=== PATIENT | female | born 1975 | race Caucasian/White ===

== ENCOUNTER → 2016-12-10 | Outpatient (CLI) | payer OTHER ==
[~2016-12-10] MED LIST: ALBU17IN INH; FLUT22IN INH; GABA600T PO; LAMO200T PO; LYRI200C PO; NEUR300C PO; PROZ20CA11 PO; SERO50TA PO
[2016-12-10 11:50] LABS: MEAN CORPUSCULAR HEMOGLOBIN 30.4 pg (27.0-33.0); MEAN CORPUSCULAR HGB CONC 33.8 g/dl (32.0-36.5); MEAN CORPUSCULAR VOLUME 89.9 fl (80.0-96.0)
[2016-12-10 12:09] LABS: CONTROL LINE HPYORI INT CTR LINE PRESENT
[2016-12-10 12:13] LABS: ALBUMIN 3.9 GM/DL (3.2-5.2); ALBUMIN/GLOBULIN RATIO 0.98 (1.00-1.93); ALKALINE PHOSPHATASE 76 U/L (45-117); ALT/SGPT 108 U/L (12-78); ANION GAP 8 MEQ/L (8-16); AST/SGOT 65 U/L (15-37); BILIRUBIN,TOTAL 0.4 MG/DL (0.2-1.0); BLOOD UREA NITROGEN 8 MG/DL (7-18); CALCIUM LEVEL 8.8 MG/DL (8.5-10.1); CARBON DIOXIDE LEVEL 24 MEQ/L (21-32); CHLORIDE LEVEL 107 MEQ/L (98-107); CREATININE FOR GFR 0.64 MG/DL (0.55-1.02); FREE T4 1.42 NG/DL (0.76-1.46); GLOMERULAR FILTRATION RATE > 60.0 (>60); GLUCOSE, FASTING 91 MG/DL (70-105); POTASSIUM SERUM 4.3 MEQ/L (3.5-5.1); SODIUM LEVEL 139 MEQ/L (136-145); TOTAL PROTEIN 7.9 GM/DL (6.4-8.2)
== END ==
LOC: M LAB 11:00
PROVIDERS: ATTEND Nurse Practitioner Family
DX: R63.4 Abnormal weight loss (principal); R42 Dizziness and giddiness; K21.9 Gastro-esophageal reflux disease without esophagitis; R11.0 Nausea

== ENCOUNTER 2016-12-15 16:03 | Inpatient (IN) | payer OTHER ==
[~2016-12-15] VITALS: Ht 175.3 cm; Wt 66.2 kg
[2016-12-15 17:05] LABS: MEAN CORPUSCULAR HEMOGLOBIN 30.5 pg (27.0-33.0); MEAN CORPUSCULAR HGB CONC 33.7 g/dl (32.0-36.5); MEAN CORPUSCULAR VOLUME 90.4 fl (80.0-96.0); WHITE BLOOD COUNT 10.8 K/mm3 (4.0-10.0)
[2016-12-15 17:34] LABS: ALBUMIN 3.7 GM/DL (3.2-5.2); ALBUMIN/GLOBULIN RATIO 1.06 (1.00-1.93); ALKALINE PHOSPHATASE 84 U/L (45-117); ALT/SGPT 89 U/L (12-78); AMYLASE 63 U/L (25-115); ANION GAP 9 MEQ/L (8-16); AST/SGOT 64 U/L (15-37); BILIRUBIN,DIRECT < 0.1 MG/DL (0.0-0.2); BILIRUBIN,TOTAL 0.3 MG/DL (0.2-1.0); BLOOD UREA NITROGEN 8 MG/DL (7-18); CALCIUM LEVEL 8.6 MG/DL (8.5-10.1); CARBON DIOXIDE LEVEL 23 MEQ/L (21-32); CHLORIDE LEVEL 106 MEQ/L (98-107); CREATININE FOR GFR 0.79 MG/DL (0.55-1.02); GLOMERULAR FILTRATION RATE > 60.0 (>60); GLUCOSE, FASTING 106 MG/DL (70-105); SODIUM LEVEL 138 MEQ/L (136-145); TOTAL PROTEIN 7.2 GM/DL (6.4-8.2)
[2016-12-15 17:35] LABS: POTASSIUM SERUM 4.1 MEQ/L (3.5-5.1)
[2016-12-15 18:33] LABS: AMPHETAMINES LEVEL URINE NEGATIVE (NEGATIVE); BENZODIAZEPINES URINE NEGATIVE (NEGATIVE); COCAINE METABOLITE URINE NEGATIVE (NEGATIVE); CONTROL LINE INT CTR LINE PRESENT; METHADONE URINE NEGATIVE (NEGATIVE); OPIATES URINE NEGATIVE (NEGATIVE); TRICYCLIC ANTIDEPRESS URINE NEGATIVE (NEGATIVE)
[2016-12-15] MEDS ORDERED: ISOVUE-370 76% 100ML VIAL (Q9967) As Ordered ONE (20:03)
--- NOTE | 2016-12-15 20:20 | REPUSA ---
CT of the abdomen and pelvis with contrast Clinical statement: weight loss. Technique: Multiple axial CT images were obtained from the base of the lungs through the floor of the pelvis utilizing 5 mm axial slices after administration of nonionic intravenous contrast. Coronal an d sagittal reconstructions were also obtained. No comparison is available. Findings: Chest: The visualized lung bases are clear. Abdomen: The liver, spleen, pancreas, kidneys, gallbladder, and adrenal glands are unremarkable. The aorta is within normal limits. There is no evidence of abdominal lymphadenopathy or ascites. Pelvis: Moderate amount of stool fills the colon.The bowel is otherwise unremarkable, with no obstruc tive or inflammatory changes. The urinary bladder is within normal limits. The other pelvic structure s appear grossly intact. There is no evidence of pelvic lymphadenopathy. There is a trace amount of f ree fluid in the cul-de-sac, likely physiologic in nature. Bones: There are no suspicious osseous abnormalities seen. Impression: Mild constipation. Otherwise unremarkable CT examination of the abdomen and pelvis.
[2016-12-15] MEDS ORDERED: PANTOPRAZOLE 40MG TAB (PROTONIX) As Ordered ONE (21:31)
[2016-12-15] MEDS ORDERED: PREGABALIN 100 MG CAP (LYRICA) As Ordered ONE (21:31)
[2016-12-15] MEDS ORDERED: AMOXICILLIN 500 MG CAP As Ordered ONE (21:31)
[2016-12-15] MEDS ORDERED: ONDANSETRON 4 MG ORAL DISINTEGRATING TAB (S0181) As Ordered ONE (21:31)
[2016-12-15] MEDS ORDERED: CLARITHROMYCIN 250 MG TAB PO SCH (21:45)
[2016-12-16] MEDS ORDERED: QUEtiapine FUMARATE 100 MG TAB As Ordered ONE (02:16)
[2016-12-16] MEDS ORDERED: PANTOPRAZOLE 40MG TAB (PROTONIX) As Ordered ONE (10:58)
[2016-12-16] MEDS ORDERED: AMOXICILLIN 250 MG CAP As Ordered ONE (10:58)
[2016-12-16] MEDS ORDERED: AZITHROMYCIN 250 MG TAB As Ordered ONE (10:58)
[2016-12-16] MEDS ORDERED: PREGABALIN 100 MG CAP (LYRICA) As Ordered ONE (10:59)
[2016-12-16] MEDS ORDERED: lamoTRIgine 25 MG TAB As Ordered ONE (11:13)
[2016-12-16] MEDS ORDERED: GABAPENTIN 100 MG CAP As Ordered ONE (11:42)
[2016-12-16] MEDS ORDERED: LORazepam 1 MG TAB As Ordered ONE (16:14)
[2016-12-16] MEDS ORDERED: LYRI200C PO (17:02)
[2016-12-16] MEDS ORDERED: DIPH50CA PO (17:02)
[2016-12-16] MEDS ORDERED: QUET5TAB PO (17:02)
[2016-12-16] MEDS ORDERED: CLAR250T PO (17:02)
[2016-12-16] MEDS ORDERED: AMOX500C PO (17:02)
[2016-12-16] MEDS ORDERED: LAMO200T PO (17:02)
[2016-12-16] MEDS ORDERED: GABA600T PO (17:06)
[2016-12-16] MEDS ORDERED: ALBU17IN INH (17:06)
[2016-12-16] MEDS ORDERED: PANT40TA2 PO (17:06)
[2016-12-16] MEDS ORDERED: VITMTA PO (17:06)
--- NOTE | 2016-12-16 18:03 | EDDOCDS ---
Physician Documentation [facility] Name: Adia Kearney Age: 41 yrs Sex: Female : 1975 Arrival Date: 12/15/2016 Time: 16:03 Bed OBSERVATION Private MD: Disposition: 12/16/16 16:07 Hospitalization ordered by Tsering Jurado for Inpatient Admission. Preliminary diagnosis is Suicidal ideations. - Bed requested for Admit. - Status is Inpatient Admission. bcj - Condition is Stable. - Problem is new. - Symptoms are unchanged. Historical: - Allergies: no known allergies; - Home Meds: 1. diphenhydramine HCl 50 mg Oral cap nightly prn 2. clarithromycin 250 mg Oral tab 1 tab every 12 hours (Last dose: 12/15/2016 07:00) 3. pregabalin 200 mg Oral cap 1 cap 3 times per day 0700, 1430, 2100 (Last dose: 12/15/2016 14:30) 4. amoxicillin 500 mg Oral cap 1 cap every 8 hours (Last dose: 12/15/2016 07:00) 5. lamotrigine 200 mg Oral tr24 1 tab once daily (Last dose: 12/15/2016 07:00) 6. quetiapine 50 mg oral Tb24 1 to 2 tabs nightly (Last dose: 12/14/2016 22:00) 7. pantoprazole 40 mg oral TbEC tid 0700, 1430, 2100 (Last dose: 12/15/2016 14:30) 8. Suboxone Unknown SL using daily pt has been taking x1 week (buying off streets) (Last dose: 12/14/2016) 9. gabapentin 600 mg Oral tab 1 tab 3 times per day - PMHx: HPylori; Panic Attacks; Bipolar disorder; - PSHx: ; - Social history: Smoking status: Patient uses tobacco products, current every day smoker. No barriers to communication noted, The patient speaks fluent [place]ese. - Family history: Not pertinent. - : The pt / caregiver states he / she is not on anticoagulants. Home medication list is obtained from the patient. - Exposure Risk Screening:: None identified. 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 9 in. (175.26 cm); Pain 3/10; 18:53 BP 123 / 73; Pulse 90; Resp 18; Pulse Ox 98% on R/A; Pain 0/10; ttb 23:06 BP 101 / 55; Pulse 86; Resp 18; Temp 97.5; Pulse Ox 96% ; Pain 0/10; tmm1 12/16 06:03 BP 97 / 51; Pulse 85; Resp 16; Temp 95.0(T); Pulse Ox 95% on R/A; Pain 0/10; slm 12/15 16:05 Body Mass Index 20.67 (63.50 kg, 175.26 cm) bnb MDM: 12/15 16:38 IV Saline Lock ordered. ml 16:38 NS 0.9% 1000 ml IV at bolus once ordered. ml 16:38 Consult PFS/PSA/Behavioral Health Associate ordered. ml 16:38 Consult PFS/PSA/Behavioral Health Associate: Patient's case requires discussion with on-call Psychiatrist ordered. 16:38 PSA/PFS to call Nursing Revenue Research Analyst, to enter patient data on [place] Safe [place] if patient ml involuntarily admitted or transferred for SI or HI ordered. 16:38 Confirm accurate psychiatric medication list and times of last dosage ordered. ml 16:38 Detain Pt Until Medically/PFS Cleared ordered. ml 16:39 Acetaminophen Level Ordered. EDMS 16:39 Basic Metabolic Profile Ordered. EDMS 16:39 Complete Blood Count Ordered. EDMS 16:39 Drug Eval Toxicology ED Only Ordered. EDMS 16:39 Ethyl Alcohol (ethanol) Ordered. EDMS 16:39 Liver Profile Ordered. EDMS 16:39 Salicylate Level Ordered. EDMS 16:39 Thyroid Stimulating Hormone Ordered. EDMS 16:39 Lipase Ordered. EDMS 16:39 Amylase Ordered. EDMS 17:28 PSA/PFS to call Nursing Revenue Research Analyst, to enter patient data on [place] Safe [place] if patient ml4 involuntarily admitted or transferred for SI or HI complete. 17:28 Consult PFS/PSA/Behavioral Health Associate: Patient's case requires discussion with on-call 4 Psychiatrist complete. 17:28 Consult PFS/PSA/Behavioral Health Associate complete. ml4 17:34 [facility] Payment Agreement was scanned into [facility] and attached to record. jp5 17:34 Financial registration complete. jp5 18:10 Acetaminophen Level Reviewed. ml 18:10 Basic Metabolic Profile Reviewed. ml 18:10 Complete Blood Count Reviewed. ml 18:10 Liver Profile Reviewed. ml 18:10 Ethyl Alcohol (ethanol) Reviewed. ml 18:10 Salicylate Level Reviewed. ml 18:10 Thyroid Stimulating Hormone Reviewed. ml 18:10 Lipase Reviewed. ml 18:10 Amylase Reviewed. ml 18:13 CT ABD & PELVIS: IV Contrast Only Ordered. EDMS 18:44 Vital Signs ordered. ml 18:46 Drug Eval Toxicology ED Only Reviewed. ml 18:59 ED course: pt signed out to dr davis. pending ct abd/p and then psych disposiiton,mlg.ml 21:09 Ondansetron ODT Oral Disintegrating Tablet 4 mg PO once ordered. tm5 21:09 Clarithromycin 250 mg PO once ordered. tm5 21:09 Pregabalin 200 mg PO once ordered. tm5 21:09 Amoxicillin 500 mg PO once ordered. tm5 21:09 Pantoprazole 40 mg PO once ordered. tm5 22:05 E Legal paperwork was scanned into [facility] and attached to record. ml4 12/16 02:23 QUEtiapine 100 mg PO once ordered. tm5 05:15 REGULAR DIET PLASTIC JONES+DIET ordered. EDMS 07:52 ED course: pt signed out to ok. pt with no complaints. pending psych disposition,mlg. ml 11:09 azithromycin 250 mg PO once ordered. bcj 11:09 Pregabalin 200 mg PO once ordered. bcj 11:09 Amoxicillin 500 mg PO once ordered. bcj 11:09 lamoTRIgine 200 mg PO once ordered. bcj 11:09 Pantoprazole 40 mg PO once ordered. bcj 11:10 REGULAR DIET PLASTIC JONES+DIET ordered. EDMS 11:41 Gabapentin 600 mg PO once ordered. bcj 15:51 Admit to IMHU: ordered. EDMS 16:00 MHE Legal paperwork was scanned into [facility] and attached to record. jl 16:07 LORazepam 1 mg PO once ordered. ml 16:09 Admit to IMHU: ordered. EDMS 16:15 Admit to IMHU: ordered. EDMS 17:06 REGULAR DIET PLASTIC JONES+DIET ordered. EDMS Administered Medications: 12/15 17:18 Drug: NS 0.9% 1000 ml [sodium chloride 0.9 % intravenous solution] Route: IV; Rate: ttb bolus; Site: right hand; 20:00 Follow up: IV Status: Completed infusion; IV Intake: 1000ml tm5 21:36 Drug: Ondansetron ODT 4 mg [ondansetron 4 mg disintegrating tablet (1 tabs)] Route: PO; tm5 21:51 Follow up: Response: Nausea is resolved; No Adverse Reaction tm5 21:36 Drug: Pregabalin 200 mg [pregabalin 100 mg capsule (2 caps)] Route: PO; tm5 21:51 Follow up: Response: No Adverse Reaction tm5 21:36 Drug: Amoxicillin 500 mg [amoxicillin 500 mg capsule (1 caps)] Route: PO; tm5 21:51 Follow up: Response: No Adverse Reaction tm5 21:36 Drug: Pantoprazole 40 mg [pantoprazole 40 mg tablet,delayed release (1 tabs)] Route: PO;tm5 21:52 Follow up: Response: No Adverse Reaction tm5 21:54 Drug: Clarithromycin 250 mg [clarithromycin 250 mg tablet (1 tabs)] Route: PO; tm5 22:42 Follow up: Response: No Adverse Reaction tm5 12/16 02:23 Drug: QUEtiapine 100 mg Route: PO; tm5 11:52 Drug: Gabapentin 600 mg [gabapentin 100 mg capsule (6 caps)] Route: PO; bcj 11:53 Drug: Pregabalin 200 mg [pregabalin 100 mg capsule (2 caps)] Route: PO; bcj 11:53 Drug: Amoxicillin 500 mg [amoxicillin 250 mg capsule (2 caps)] Route: PO; bcj 11:53 Drug: lamoTRIgine 200 mg [lamotrigine 25 mg tablet (8 tabs)] Route: PO; bcj 11:53 Drug: Pantoprazole 40 mg [pantoprazole 40 mg tablet,delayed release (1 tabs)] Route: PO;bcj 11:54 Drug: azithromycin 250 mg [azithromycin 250 mg tablet (1 tabs)] Route: PO; bcj 16:40 Drug: LORazepam 1 mg [lorazepam 1 mg tablet (1 tabs)] Route: PO; bcj Signatures: Dispatcher [facility] Bassam Toledo MD MD ml Johnson, Bruce, RN RN bcj Kian Perea, PSA PSA jl Tonya Vazquez, PSA PSA ml4 Amanda Mariscal, RN RN Odilia Diaz RN RN Pastora Rojas jp5 Jessie White,RN RN tm5 The chart was reviewed and I authenticate all verbal orders and agree with the evaluation and treatment provided.Corrections: (The following items were deleted from the chart) 12/15 17:20 17:19 REGULAR DIET ROOM SERVICE ED+DIET ordered. EDLA EDMS 17:34 16:16 Home Meds: clarithromycin 250 mg Oral tab 1 tab every 12 hours; r ttb 17:34 16:16 Home Meds: pregabalin 200 mg Oral cap 1 cap 3 times per day; [facility] ttb 17:34 16:16 Home Meds: amoxicillin 500 mg Oral cap 1 cap every 8 hours; [facility] ttb 17:34 16:16 Home Meds: lamotrigine 200 mg Oral tr24 1 tab once daily; r ttb 17:34 16:16 Home Meds: quetiapine 50 mg oral Tb24 1 to 2 tabs nightly; j ttb 17:34 16:16 Home Meds: pantoprazole 40 mg oral TbEC tid; [facility] ttb 17:34 16:17 Home Meds: Suboxone SL using daily; [facility] ttb Attachments: 17:34 [facility] Payment Agreement [email or web address] [id number]
--- NOTE | 2016-12-16 18:03 | EDDOCDS ---
Nurse's Notes [facility] Name: Adia Kearney Age: 41 yrs Sex: Female : 1975 Arrival Date: 12/15/2016 Time: 16:03 Bed OBSERVATION Private MD: Diagnosis: Suicidal ideations Presentation: 12/15 16:07 Presenting complaint: Patient states: Dr Song at [facility] spoke with her jjr this past Friday and said she could come here to speak with someone, increased depression and anxiety d/t multiple physical problems such as HPylori and suboxone use. Mental Health Triage Level: Level 1- Pt displays no suicidal or homicidal ideations and does not appear to be a danger to self or others. Adult Sepsis Screening: The patient does not have new or worsening altered mentation. Patient's respiratory rate is less than 22. Systolic blood pressure is greater than 100. Patient has a qSOFA score of 0- Negative Sepsis Screen. Suicide/Homicide risk assessment- Patient denies SI and HI but presents with another emotional, behavioral or other mental health complaint. The patient reports that he/she has not been admitted to an inpatient mental health facility in the last 30 days. The patient reports that he/she has a recent or current history of substance abuse. The patient reports that he/she has no prior history of suicide attempt and/or organized plan. The patient reports that he/she has adequate social support. Status: Patient is not a supervisor kosher dietary service or dependent. Transition of care: patient was not received from another setting of care. 16:07 Acuity: PRETTY Level 3 jjr 16:07 Method Of Arrival: Walkin/Carried/Asstd jjr Triage Assessment: 16:18 General: Appears in no apparent distress, Behavior is restless. Pain: Location: back of jjr neck and back. Pt Declines HIV testing. PAINT PREPPER: 16:17 LMP 12/05/2016 jjr Historical: - Allergies: no known allergies; - Home Meds: 1. diphenhydramine HCl 50 mg Oral cap nightly prn 2. clarithromycin 250 mg Oral tab 1 tab every 12 hours (Last dose: 12/15/2016 07:00) 3. pregabalin 200 mg Oral cap 1 cap 3 times per day 0700, 1430, 2100 (Last dose: 12/15/2016 14:30) 4. amoxicillin 500 mg Oral cap 1 cap every 8 hours (Last dose: 12/15/2016 07:00) 5. lamotrigine 200 mg Oral tr24 1 tab once daily (Last dose: 12/15/2016 07:00) 6. quetiapine 50 mg oral Tb24 1 to 2 tabs nightly (Last dose: 12/14/2016 22:00) 7. pantoprazole 40 mg oral TbEC tid 0700, 1430, 2100 (Last dose: 12/15/2016 14:30) 8. Suboxone Unknown SL using daily pt has been taking x1 week (buying off [employer]) (Last dose: 12/14/2016) 9. gabapentin 600 mg Oral tab 1 tab 3 times per day - PMHx: HPylori; Panic Attacks; Bipolar disorder; - PSHx: ; - Social history: Smoking status: Patient uses tobacco products, current every day smoker. No barriers to communication noted, The patient speaks fluent [place]. - Family history: Not pertinent. - : The pt / caregiver states he / she is not on anticoagulants. Home medication list is obtained from the patient. - Exposure Risk Screening:: None identified. Screenin:19 Screening information is obtained from the patient. Fall risk: No risks identified. ttb Assistance ADL's: requires no assistance with activities of daily living. Abuse/DV Screen: The patient / caregiver reports he/she is: not in a situation that causes fear, pain or injury. Nutritional screening: No deficits noted. Advance Directives: Currently, there is no health care proxy. home support is adequate. Assessment: 17:19 General: Appears distressed, well nourished, well groomed, Behavior is anxious, ttb appropriate for age, cooperative, crying, pleasant, restless. Pain: Denies pain. Neurological: Level of Consciousness is awake, alert, Oriented to person, place, time, Moves all extremities. Speech is normal, Facial symmetry appears normal. Cardiovascular: Heart tones S1 S2 present Chest pain is denied. Respiratory: No deficits noted. Airway is patent Respiratory effort is even, unlabored, Breath sounds are clear bilaterally. Denies cough, shortness of breath. GI: Reports nausea, Denies pain. GI: Reports intolerance of food. Derm: Skin is normal. Injury Description: No known injury. 17:31 General: sister Shruthi Gonzales [phone] available if needed.. ttb 17:49 General: social media marketing specialist in speaking with pt. NAD noted. IVF"s infusing per orders. . ttb 18:45 Reassessment: Patient appears in no apparent distress at this time. VS obtained. Pt ttb resting on stretcher awaiting CT. Report given to next RN to continue care.. 20:10 Reassessment: Patient appears in no apparent distress at this time. Patient denies pain tm5 at this time. Patient states feeling better. Patient states symptoms have improved. General: Appears in no apparent distress, Behavior is appropriate for age, cooperative. Pain: Denies pain. Respiratory: Airway is patent Respiratory effort is even, unlabored, Respiratory pattern is regular, symmetrical. Derm: Skin is pink, warm & dry. normal. 23:15 General: Appears in no apparent distress, comfortable, Behavior is quiet. General: pt slm resting on stretcher with eyes closed security observing . Respiratory: Airway is patent Respiratory effort is even, unlabored. 12/16 00:17 General: Appears in no apparent distress, comfortable, to be sleeping. Behavior is slm quiet. General: pt asleep on stretcher security observing . Respiratory: Airway is patent Respiratory effort is even, unlabored. Derm: Skin is pink, warm & dry. 02:00 General: pt awake asking sitter for her Seroquel that she didn't receive with her other tm5 medications at 2100, pt also asking to use her Ventolin inhaler that she has in her backpack that is locked up, Dr Brush aware of this & approves that pt can use her own inhaler & that pt can receive Seroquel 100mg PO at this time . 02:00 Respiratory: Airway is patent Respiratory effort is even, unlabored, Respiratory tm5 pattern is regular, symmetrical, Breath sounds are clear bilaterally. 03:00 General: Appears in no apparent distress, comfortable, to be sleeping. Behavior is slm quiet. General: security observing . Respiratory: Airway is patent Respiratory effort is even, unlabored. Derm: Skin is pink, warm & dry. 03:43 General: Appears in no apparent distress, comfortable, to be sleeping. Behavior is slm quiet. General: pt asleep on stretcher security observing . Respiratory: No deficits noted. 04:15 Reassessment: Patient appears in no apparent distress at this time. Patient states tm5 feeling better. Patient states symptoms have improved. pt resting with eyes closed, resp easy, no s/s of any distress at this time . 04:40 General: Appears in no apparent distress, comfortable, to be sleeping. Behavior is slm quiet. General: pt asleep on stretcher security observing . Respiratory: Airway is patent Respiratory effort is even, unlabored. 05:50 General: Appears in no apparent distress, comfortable, Behavior is appropriate for age, slm cooperative. General: resting on stretcher denies needs security observing . Pain: Denies pain. Neurological: Level of Consciousness is awake, alert, obeys commands. Respiratory: Airway is patent Respiratory effort is even, unlabored. 08:05 General: Appears in no apparent distress, comfortable, Behavior is cooperative. Pain: bcj Denies pain. Derm: Skin is pink, warm & dry. 10:29 General: Appears in no apparent distress, comfortable, Behavior is cooperative. Pain: bcj Denies pain. Derm: Skin is pink, warm & dry. 13:05 General: Appears in no apparent distress, comfortable, Behavior is cooperative. Pain: bcj Denies pain. Derm: Skin is pink, warm & dry. 17:54 General: Appears comfortable, Behavior is cooperative. Pain: Denies pain. Neurological: bcj Level of Consciousness is awake, alert. Derm: Skin is pink, warm & dry. Mental Health Eval: 12/15 18:19 Mental health consult is initiated at 17:30. Status: The patient is not a ml4 supervisor kosher dietary service or dependent. [facility]: The patient is not an established patient of [facility]. Referral Information: Evaluation referral is generated by the patient himself / herself. The patient was referred for evaluation because increase panic attacks, expressed vague SI to Sister due to on-going medical problems . Subjective: The patients chief complaint is pt states, "I'm afraid I'm going to ."Pt reports having increase panic attacks for the past 2 wks due to some on-going medical problems. Admits having abdominal pain and was recently diagnosed with H Pylori by PCP Nov, 2016. Admits she has lost 28 pounds within the last month due to nausea and vomiting. Due to the severity of her symptoms pt feels she is going to . States she also seeks tx with Dr. Candelaria at [facility] for chronic neck pain and has placed her on Cymbalta, however pt's insurance would not cover prescription. Pt feels overwhelmed with both medical issues(H Pylori & Neck Pain) and feels her medical issues has triggered her anxiety to exacerbate. As a result, unable to function in her daily life. She states she is unable to work, eat, or sleep and states, "her body is shutting down." She describes her panic attacks as "not being able to breathe and I feel someone is chasing me." Additionally, she feels her PCP and Psychiatrists are not taking her concerns seriously and feels that are not addressing her problems. Pt denies SI and HI, however spoke to her Sister who admits pt expressed SI 2 days ago by stating, "everyone would be better off without me, I should just kill myself." Sister feels pt is embarrassed and will not admit feeling suicidal. Pt also has a hx of substance abuse. 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 Admits Suboxone relieves all her pain and discomfort. Pt is requesting hospitalization due to feeling she is not safe to return home. . Delusions are denied. Patient's mood is anxious, Hallucinations are denied. Mental Health history: anxiety, Bipolar Disorder, depression, abusing prescription drugs. heroin. panic attacks, Mental Health Admissions: last admission to [facility] Mar, 2015 Current Outpatient Mental Health Services: Psychiatrist / Agency: Dr. Su/[facility]I . Therapist / Agency: Joie/[facility]. Director Of Instrumental Music / Agency: Sandie/[facility]. Current living environment is Family / Home Support: adequate, sister is very supportive. Pt has 2 children , age 16 and 17 who are with Sister currently. The patient currently lives with his / her children. The patient is . Patient presents to Emergency Department with the following symptoms within the past 2 weeks: agitation, agoraphobia, anger, anxiety, decreased appetite, depressed mood, drug abuse, feelings of helplessness/hopelessness, panic attacks, poor concentration, poor impulse control, sleep disturbance - insomnia, suicidal ideation with no plan, weight loss of 28 pounds. Substance abuse: Patient uses tobacco 1 pack Frequency daily, pt has been abusing Suboxone . Mental status exam: Patients appearance is thin, Patient's behavior is cooperative, Speech is normal. Affect is appropriate. Mood is anxious. depressed. irritable. Hallucinations are denied. Appetite is poor. Memory is good. Energy level is normal. Content of thought is depressive. due to suicidal threat Thought process is intact. Cognitive level is oriented to person, place, time and situation Patient's insight is fair. Judgement is fair. Rapport with interviewer is good. Suicidal Ideation is denied. Homicidal ideation is denied. Narrative: Awaiting medical clearance... 22:00 Disposition: Medically cleared for disposition by Bryce Brush DO Psychiatric ml4 Consult is performed by phone with Dr Tsering Jurado The patient is to be transferred to to accepting facility. [facility] Admission Criteria: The patient requires continuous observation and/or control to protect self, others or property. The patient's care requires a multi-modal treatment plan under close supervision and coordination due to the complexity and severity of the patient's symptoms. The patient requires administration and monitoring of psychoactive medications by skilled medical providers due to the side effects of the psychoactive medications or significant dosage adjustments. Legal Status: Patient's legal status will be [facility] admission: . [place] Safe Act: [place] Safe Act is applicable to this patient. The patient poses a risk to self or other and the Nursing Line Person has been notified. He/She will enter the patient's data. DSM-V Differential Diagnosis: Bipolar II Disorder (F31.81) Current or most recent episode unspecified. Narrative: [facility] is currently at capacity. All surrounding facilities([facility], [facility], [facility], [facility], [place], [facility], [facility], are at capacity. Due to the poor weather conditions, [facility] is unable to travel until conditions improve. 12/16 15:54 Narrative: A bed has become available on [facility] & admission orders have been obtained jl from Dr. Jurado. Patient to be admitted on . Vital Signs: 12/15 16:05 BP 156 / 82 RA Sitting (auto/reg); Pulse 120; Resp 18; Temp 99.4(O); Pulse Ox 100% on bnb R/A; Weight 63.5 kg; Height 5 ft. 9 in. (175.26 cm); Pain 3/10; 18:53 BP 123 / 73; Pulse 90; Resp 18; Pulse Ox 98% on R/A; Pain 0/10; ttb 23:06 BP 101 / 55; Pulse 86; Resp 18; Temp 97.5; Pulse Ox 96% ; Pain 0/10; tmm1 12/16 06:03 BP 97 / 51; Pulse 85; Resp 16; Temp 95.0(T); Pulse Ox 95% on R/A; Pain 0/10; slm 12/15 16:05 Body Mass Index 20.67 (63.50 kg, 175.26 cm) bnb Vitals: 12/15 16:05 Log In Time: December 15, 2016 at 16:02. bnb ED Course: 16:05 Patient visited by Katelyn Swartz PCA. bnb 16:05 Patient moved to Waiting bnb 16:07 Patient visited by Katelyn Swartz PCA. bnb 16:12 Triage Initiated jjr 16:18 Patient moved to [facility] jjr 16:20 Report received from rn - psych. triage level #1, no obs. req. \\T\\ This time. pjf 16:22 Bassam Toledo MD is Attending Physician. ml 16:22 Patient visited by Bassam Toledo MD. ml 16:30 The patient / caregiver is instructed regarding the plan of care and ED course. ttb Accompanied by Family Member, Patient has correct armband on for positive identification. 16:30 Security observing. ttb 16:43 Patient visited by [employer] Security Aide. pjf 17:11 Inserted peripheral IV: 20gauge IV in right hand and blood collected. Patient tolerated ttb the procedure well. Labs drawn. 17:13 Patient visited by [employer] Security Aide. pjf 17:22 Patient visited by Odilia Dias RN. ttb 17:31 Patient visited by [employer] Security Aide. pjf 17:33 Pt greeted and oriented to ED. Patient advised of names of staff involved in care, pjf location of call aly, wait times and NPO status. Placed in psych safe attire. Bed in low position. Call light in reach. Side rails up X 1. Adult w/ patient. Property removed, secured in belongings bag- Placed in locker #3. Door closed. Noise minimized. Visitors limited. Report received from - psych. triage level #2, +si. Psych Safety Check: Location: Psych Room. 17:34 [facility] Payment Agreement was scanned into Treater and attached to record. jp5 17:46 Patient visited by [employer] Security Aide. pjf 17:55 Patient name changed from Adia\\S\\\\S\\Kearney\\S\\ to Adia\\S\\ \\S\\Kearney. EDMS 17:58 Patient visited by [employer] Security Aide. pjf 18:19 Patient visited by [employer] Security Aide. pjf 18:41 Patient visited by [employer] Security Aide. pjf 18:45 Security observing. ttb 18:58 Patient visited by Almita Chamorro PCA. tmm1 19:10 Patient visited by Jessie White RN. tm5 19:13 Report received from Almita Mendoza, assumed care of pt at this time. tm5 19:15 Patient visited by Almita Chamorro PCA. tmm1 19:20 Attending Physician role handed off by Bassam Toledo MD mm11 19:20 Bryce Brush DO is Attending Physician. mm11 19:23 Patient visited by Odilia Dias RN. ttb 19:50 Psych Safety Check: Location: Psych Room. Visual Assessment: Cooperative. tmm1 20:09 Patient visited by Jessie White RN. tm5 20:[address] tm5 20:10 Psych Safety Check: Location: Psych Room. Visual Assessment: Cooperative. tmm1 20:25 Psych Safety Check: Location: Psych Room. Visual Assessment: Cooperative. tmm1 20:40 Psych Safety Check: Location: Psych Room. Visual Assessment: Cooperative. tmm1 20:57 CT ABD & PELVIS: IV Contrast Only Returned. EDMS 21:00 Psych Safety Check: Location: Psych Room. Visual Assessment: Cooperative. tmm1 21:07 Patient moved to OBSERVATION mm11 21:15 Psych Safety Check: Location: Psych Room. Visual Assessment: Cooperative. tmm1 21:36 Psych Safety Check: Location: Psych Room. Visual Assessment: Cooperative. tmm1 21:37 Discontinued lock intact, bleeding controlled, pressure dressing applied, No tm5 redness/swelling at site. No procedures done that require assistance. 21:50 Psych Safety Check: Location: Psych Room. Visual Assessment: Cooperative. tmm1 22:05 [facility] Legal paperwork was scanned into Treater and attached to record. ml4 22:10 Psych Safety Check: Location: Psych Room. Visual Assessment: Cooperative. tmm1 22:29 Psych Safety Check: Location: Psych Room. Visual Assessment: Cooperative. tmm1 22:45 Psych Safety Check: Location: Psych Room. Visual Assessment: Cooperative. tmm1 23:05 Psych Safety Check: Location: Psych Room. Visual Assessment: Cooperative. tmm1 23:15 Nata Wilson LPN is Primary Nurse. slm 23:16 Patient visited by Nata Wilson LPN. slm 23:31 Psych Safety Check: Location: Psych Room. Visual Assessment: Sleeping. tmm1 23:45 Psych Safety Check: Location: Psych Room. Visual Assessment: Sleeping. tmm1 12/16 00:01 Psych Safety Check: Location: Psych Room. Visual Assessment: Sleeping. tmm1 00:15 Psych Safety Check: Location: Psych Room. Visual Assessment: Sleeping. tmm1 00:30 Psych Safety Check: Location: Psych Room. Visual Assessment: Sleeping. tmm1 00:45 Psych Safety Check: Location: Psych Room. Visual Assessment: Sleeping. tmm1 01:00 Psych Safety Check: Location: Psych Room. Visual Assessment: Sleeping. tmm1 01:15 Psych Safety Check: Location: Psych Room. Visual Assessment: Sleeping. tmm1 01:28 Patient visited by Jessie White RN. tm5 01:30 Psych Safety Check: Location: Psych Room. Visual Assessment: Sleeping. tmm1 01:46 Psych Safety Check: Location: Psych Room. Visual Assessment: Sleeping. tmm1 02:07 Psych Safety Check: Location: Psych Room. Visual Assessment: Cooperative. tmm1 02:10 Patient visited by Jessie White RN. tm5 02:22 Patient visited by Jessie White RN. tm5 02:32 Psych Safety Check: Location: Psych Room. Visual Assessment: Sleeping. tmm1 02:41 Psych Safety Check: Location: Psych Room. Visual Assessment: Sleeping. tmm1 02:48 Psych Safety Check: Location: Psych Room. Visual Assessment: Sleeping. tmm1 03:00 Psych Safety Check: Location: Psych Room. Visual Assessment: Sleeping. tmm1 03:15 Psych Safety Check: Location: Psych Room. Visual Assessment: Sleeping. tmm1 03:30 Psych Safety Check: Location: Visual Assessment: Cooperative. tmm1 03:43 Patient visited by Nata Wilson LPN. slm 03:56 Psych Safety Check: Location: Psych Room. Visual Assessment: Sleeping. tmm1 04:15 Psych Safety Check: Location: Psych Room. Visual Assessment: Sleeping. tmm1 04:30 Psych Safety Check: Location: Psych Room. Visual Assessment: Sleeping. tmm1 04:44 Psych Safety Check: Location: Psych Room. Visual Assessment: Sleeping. tmm1 04:59 Psych Safety Check: Location: Psych Room. Visual Assessment: Sleeping. tmm1 05:00 Patient visited by Nata Wilson LPN. slm 05:15 Psych Safety Check: Location: Psych Room. Visual Assessment: Sleeping. tmm1 05:16 Patient visited by Jessie White RN. tm5 05:37 Psych Safety Check: Location: Psych Room. Visual Assessment: Sleeping. tmm1 05:51 Psych Safety Check: Location: Psych Room. Visual Assessment: Cooperative. tmm1 06:11 Psych Safety Check: Location: Psych Room. Visual Assessment: Sleeping. tmm1 06:28 Psych Safety Check: Location: Psych Room. Visual Assessment: Cooperative. tmm1 06:46 Patient visited by Almita Chamorro PCA. tmm1 06:58 Patient visited by Jessie White RN. tm5 06:58 Report given to Gonsalo Mukherjee RN. tm5 07:12 Patient visited by Hernandez Shaffer. rn1 07:16 Patient visited by Hernandez Shaffer. rn1 07:30 Patient visited by Hernandez Shaffer. rn1 07:45 Patient visited by Hernandez Shaffer. rn1 07:52 Attending Physician role handed off by Bryce Brush DO ml 07:52 Bassam Toledo MD is Attending Physician. ml 08:01 Patient visited by Hernandez Shaffer. rn1 08:05 No apparent distress. Resting quietly. Awaiting disposition. bcj 08:05 Patient visited by Gonsalo Mukherjee RN. bcj 08:05 Security observing. bcj 08:15 Patient visited by Hernandez Shaffer. rn1 08:34 Patient visited by Hernandez Shaffer. rn1 08:46 Patient visited by Hernandez Shaffer. rn1 09:03 Patient visited by Hernandez Shaffer. rn1 09:15 Patient visited by Hernandez Shaffer. rn1 09:33 Patient visited by Hernandez Shaffer. rn1 09:47 Patient visited by Hernandez Shaffer. rn1 10:06 Patient visited by Hernandez Shaffer. rn1 10:29 No apparent distress. Resting quietly. Awaiting disposition. bcj 10:29 Security observing. bcj 10:30 Patient visited by Gonsalo Mukherjee RN. bcj 10:38 Patient visited by Hernandez Shaffer. rn1 10:48 Patient visited by Hernandez Shaffer. rn1 10:53 Patient visited by Hernandez Shaffer. rn1 11:01 Patient visited by Hernandez Shaffer. rn1 11:18 Patient visited by Hernandez Shaffer. rn1 11:31 Patient visited by Hernandez Shaffer. rn1 11:45 Patient visited by Hernandez Shaffer. rn1 12:00 Patient visited by Hernandez Shaffer. rn1 12:19 Patient visited by Hernandez Shaffer. rn1 12:31 Patient visited by Hernandez Shaffer. rn1 13:05 No apparent distress. Resting quietly. Awaiting disposition. bcj 13:05 Security observing. bcj 13:06 Patient visited by Gonsalo Mukherjee RN. bcj 13:46 Patient visited by Shelia Mccray. lr2 14:01 Patient visited by Shelia Mccray. lr2 14:16 Patient visited by Hernandez Shaffer. rn1 14:38 Patient visited by Hernandez Shaffer. rn1 14:57 Patient visited by Hernandez Shaffer. rn1 15:15 Patient visited by Hernandez Shaffer. rn1 15:30 Patient visited by Hernandez Shaffer. rn1 16:00 [facility] Legal paperwork was scanned into Treater and attached to record. jl 16:01 Patient visited by Hernandez Shaffer. rn1 16:07 Tsering Jurado is Hospitalizing Provider. ml 16:18 Patient visited by Hernandez Shaffer. rn1 16:55 Patient visited by Hernandez Shaffer. rn1 17:00 Patient visited by Hernandez Shaffer. rn1 17:24 Patient visited by Hernandez Shaffer. rn1 17:34 Patient visited by Hernandez Shaffer. rn1 17:45 Patient visited by Hernandez Shaffer. rn1 17:54 No apparent distress. Resting quietly. Awaiting bed assignment. bcj 17:54 Security observing. bcj 17:55 Patient visited by Gonsalo Mukherjee RN. bcj 18:02 Patient visited by Gonsalo Mukherjee RN. sisi 18:02 Patient visited by Gonsalo Mukherjee RN. [facility] Administered Medications: 12/15 17:18 Drug: NS 0.9% 1000 ml [sodium chloride 0.9 % intravenous solution] Route: IV; Rate: ttb bolus; Site: right hand; 20:00 Follow up: IV Status: Completed infusion; IV Intake: 1000ml tm5 21:36 Drug: Ondansetron ODT 4 mg [ondansetron 4 mg disintegrating tablet (1 tabs)] Route: PO; tm5 21:51 Follow up: Response: Nausea is resolved; No Adverse Reaction tm5 21:36 Drug: Pregabalin 200 mg [pregabalin 100 mg capsule (2 caps)] Route: PO; tm5 21:51 Follow up: Response: No Adverse Reaction tm5 21:36 Drug: Amoxicillin 500 mg [amoxicillin 500 mg capsule (1 caps)] Route: PO; tm5 21:51 Follow up: Response: No Adverse Reaction tm5 21:36 Drug: Pantoprazole 40 mg [pantoprazole 40 mg tablet,delayed release (1 tabs)] Route: PO;tm5 21:52 Follow up: Response: No Adverse Reaction tm5 21:54 Drug: Clarithromycin 250 mg [clarithromycin 250 mg tablet (1 tabs)] Route: PO; tm5 22:42 Follow up: Response: No Adverse Reaction 5 12/16 02:23 Drug: QUEtiapine 100 mg Route: PO; tm5 11:52 Drug: Gabapentin 600 mg [gabapentin 100 mg capsule (6 caps)] Route: PO; j 11:53 Drug: Pregabalin 200 mg [pregabalin 100 mg capsule (2 caps)] Route: PO; j 11:53 Drug: Amoxicillin 500 mg [amoxicillin 250 mg capsule (2 caps)] Route: PO; j 11:53 Drug: lamoTRIgine 200 mg [lamotrigine 25 mg tablet (8 tabs)] Route: PO; j 11:53 Drug: Pantoprazole 40 mg [pantoprazole 40 mg tablet,delayed release (1 tabs)] Route: PO;j 11:54 Drug: azithromycin 250 mg [azithromycin 250 mg tablet (1 tabs)] Route: PO; j 16:40 Drug: LORazepam 1 mg [lorazepam 1 mg tablet (1 tabs)] Route: PO; j Attachments: 12/16 16:00 MHE Legal paperwork jl Intake: 12/15 20:00 IV: 1000.00ml; Total: 1000.00ml. tm5 Order Results: Lab Order: Acetaminophen Level; SPEC'M 12/15/16 16:50 Test: ACETAMINOPHEN LEVEL; Value: < 2.0; Range: 10.0-30.0; Abnormal: Below low normal; Units: UG/ML; Status: F Lab Order: Basic Metabolic Profile; SPEC'M 12/15/16 16:50 Test: GLUCOSE, FASTING; Value: 106; Range: 70-105; Abnormal: Above high normal; Units: MG/DL; Status: F Test: BLOOD UREA NITROGEN; Value: 8; Range: 7-18; Units: MG/DL; Status: F Test: CREATININE FOR GFR; Value: 0.79; Range: 0.55-1.02; Units: MG/DL; Status: F Test: GLOMERULAR FILTRATION RATE; Value: > 60.0; Range: >60; Status: F Test: SODIUM LEVEL; Value: 138; Range: 136-145; Units: MEQ/L; Status: F Test: POTASSIUM SERUM; Value: 4.1; Range: 3.5-5.1; Units: MEQ/L; Status: F Test: CHLORIDE LEVEL; Value: 106; Range: 98-107; Units: MEQ/L; Status: F Test: CARBON DIOXIDE LEVEL; Value: 23; Range: 21-32; Units: MEQ/L; Status: F Test: ANION GAP; Value: 9; Range: 8-16; Units: MEQ/L; Status: F Test: CALCIUM LEVEL; Value: 8.6; Range: 8.5-10.1; Units: MG/DL; Status: F Test Note: ; Units are mL/min/1.73 m2 Chronic Kidney Disease Staging per NKF: Stage I & II GFR >=60 Normal to Mildly Decreased Stage III GFR 30-59 Moderately Decreased Stage IV GFR 15-29 Severely Decreased Stage V GFR <15 Very Little GFR Left ESRD GFR <15 on [address] LEAD Lab Order: Complete Blood Count; SPEC'M 02/12/17 16:50 Test: WHITE BLOOD COUNT; Value: 10.8; Range: 4.0-10.0; Abnormal: Above high normal; Units: K/mm3; Status: F Test: RED BLOOD COUNT; Value: 4.68; Range: 4.00-5.40; Units: M/mm3; Status: F Test: HEMOGLOBIN; Value: 14.3; Range: 12.0-16.0; Units: g/dl; Status: F Test: HEMATOCRIT; Value: 42.3; Range: 36.0-47.0; Units: %; Status: F Test: MEAN CORPUSCULAR VOLUME; Value: 90.4; Range: 80.0-96.0; Units: fl; Status: F Test: MEAN CORPUSCULAR HEMOGLOBIN; Value: 30.5; Range: 27.0-33.0; Units: pg; Status: F Test: MEAN CORPUSCULAR HGB CONC; Value: 33.7; Range: 32.0-36.5; Units: g/dl; Status: F Test: RED CELL DISTRIBUTION WIDTH; Value: 12.0; Range: 11.5-14.5; Units: %; Status: F Test: PLATELET COUNT, AUTOMATED; Value: 187; Range: 150-450; Units: k/mm3; Status: F Lab Order: Drug Eval Toxicology ED Only; SPEC'M 12/15/16 16:50 Test: AMPHETAMINES LEVEL URINE; Value: NEGATIVE; Range: NEGATIVE; Status: F Test: BARBITURATES URINE; Value: NEGATIVE; Range: NEGATIVE; Status: F Test: BENZODIAZEPINES URINE; Value: NEGATIVE; Range: NEGATIVE; Status: F Test: CANNABINOIDS URINE; Value: NEGATIVE; Range: NEGATIVE; Status: F Test: COCAINE METABOLITE URINE; Value: NEGATIVE; Range: NEGATIVE; Status: F Test: METHADONE URINE; Value: NEGATIVE; Range: NEGATIVE; Status: F Test: OPIATES URINE; Value: NEGATIVE; Range: NEGATIVE; Status: F Test: TRICYCLIC ANTIDEPRESS URINE; Value: NEGATIVE; Range: NEGATIVE; Status: F Test Note: ; ALL PRESUMPTIVE POSITIVE FINDINGS ARE UNCONFIRMED NORMAL VALUES THRESHOLD IN NG/ML AMPHETAMINES 1000 METHAMPHETAMINES 1000 BARBITURATES 300 BENZODIAZEPINES 300 CANNABINOIDS (THC) 50 COCAINE METABOLITE 300 METHADONE 300 OPIATES 300 PHENCYCLIDINE 25 TRICYCLIC ANTIDEPRESSANTS 1000 RESULTS ARE FOR MEDICAL PURPOSES ONLY. ALL URINE SPECIMENS WILL BE SAVED FOR 3 DAYS. IF CONFIRMATION OF A PRESUMPTIVE POSTIVE SCREEN RESULT IS DESIRED, CALL CHEMISTRY ([phone]) AND REQUEST URINE TO BE SENT TO REFERENCE LAB. FOR A LIST OF CLOSELY RELATED COMPOUNDS PLEASE CALL THE LAB. Lab Order: Ethyl Alcohol (ethanol); [facility] 12/15/16 16:50 Test: ETHYL ALCOHOL (ETHANOL); Value: < 0.003; Range: 0.000-0.010; Units: %; Status: F Lab Order: Liver Profile; [facility] 12/15/16 16:50 Test: AST/SGOT; Value: 64; Range: 15-37; Abnormal: Above high normal; Units: U/L; Status: F Test: ALT/SGPT; Value: 89; Range: 12-78; Abnormal: Above high normal; Units: U/L; Status: F Test: ALKALINE PHOSPHATASE; Value: 84; Range: 45-117; Units: U/L; Status: F Test: BILIRUBIN,TOTAL; Value: 0.3; Range: 0.2-1.0; Units: MG/DL; Status: F Test: BILIRUBIN,DIRECT; Value: < 0.1; Range: 0.0-0.2; Units: MG/DL; Status: F Test: TOTAL PROTEIN; Value: 7.2; Range: 6.4-8.2; Units: GM/DL; Status: F Test: ALBUMIN; Value: 3.7; Range: 3.2-5.2; Units: GM/DL; Status: F Test: ALBUMIN/GLOBULIN RATIO; Value: 1.06; Range: 1.00-1.93; Status: F Lab Order: Salicylate Level; [facility] 12/15/16 16:50 Test: SALICYLATE LEVEL; Value: 5.3; Range: 5.0-30.0; Units: MG/DL; Status: F Lab Order: Thyroid Stimulating Hormone; [facility] 12/15/16 16:50 Test: THYROID STIMULATING HORMONE; Value: 0.855; Range: 0.358-3.740; Units: uIU/ML; Status: F Lab Order: Lipase; [facility] 12/15/16 16:50 Test: LIPASE; Value: 208; Range: 73-393; Units: U/L; Status: F Lab Order: Amylase; SPEC'M 12/15/16 16:50 Test: AMYLASE; Value: 63; Range: 25-115; Units: U/L; Status: F Radiology Order: CT ABD & PELVIS: IV Contrast Only Test: CT ABD & PELVIS: IV Contrast Only REASON FOR EXAMINATION: 22 pound weight loss; ; CT of the abdomen and pelvis with contrast; Clinical statement: weight loss.; Technique: Multiple axial CT images were obtained from the base of the lungs through the floor of the; pelvis utilizing 5 mm axial slices after administration of nonionic intravenous contrast. Coronal an; d sagittal reconstructions were also obtained.; No comparison is available.; Findings:; Chest: The visualized lung bases are clear.; Abdomen: The liver, spleen, pancreas, kidneys, gallbladder, and adrenal glands are unremarkable. The; aorta is within normal limits. There is no evidence of abdominal lymphadenopathy or ascites.; Pelvis: Moderate amount of stool fills the colon.The bowel is otherwise unremarkable, with no obstruc; tive or inflammatory changes. The urinary bladder is within normal limits. The other pelvic structure; s appear grossly intact. There is no evidence of pelvic lymphadenopathy. There is a trace amount of f; ree fluid in the cul-de-sac, likely physiologic in nature.; Bones: There are no suspicious osseous abnormalities seen.; Impression: Mild constipation. Otherwise unremarkable CT examination of the abdomen and pelvis.; ; Outcome: 16:30 CT Study completed. ttb 20:11 Discharge Assessment: patient administered narcotics - no. tm5 12/16 16:07 Decision to Hospitalize by Provider. 17:58 The following High Risk Discharge criteria are identified: None. Admitted to [facility] accompanied by tech, via wheelchair. Condition: stable. 18:02 Patient left the ED. [facility] Signatures: Dispatcher [employer] EDMS Bassam Toledo MD MD ml Johnson, Bruce, RN RN [facility] Kian Perea, PSA PSA jl Med Key, Security Aide [facility] Tonya Vazquez, PSA PSA ml4 Bryce Brush, DO mm11 Amanda Mariscal, RN RN Odilia Diaz RN RN ttb Almita Chamorro, ACTIVITY MANAGER ACTIVITY MANAGER tmm1 Nata Wilson LPN RELEASE OF INFORMATION SPECIALIST slm Hernandez Shaffer rn1 Pastora Jeronimo jp5 Jessie White RN RN tm5 Katelyn Swartz, ACTIVITY MANAGER ACTIVITY MANAGER bnb Shelia Mccray lr2 Corrections: (The following items were deleted from the chart) 12/15 17:34 16:16 Home Meds: clarithromycin 250 mg Oral tab 1 tab every 12 hours; [facility] ttb 17:34 16:16 Home Meds: pregabalin 200 mg Oral cap 1 cap 3 times per day; [facility] ttb 17:34 16:16 Home Meds: amoxicillin 500 mg Oral cap 1 cap every 8 hours; [facility] ttb 17:34 16:16 Home Meds: lamotrigine 200 mg Oral tr24 1 tab once daily; [facility] ttb 17:34 16:16 Home Meds: quetiapine 50 mg oral Tb24 1 to 2 tabs nightly; [facility] ttb 17:34 16:16 Home Meds: pantoprazole 40 mg oral TbEC tid; [facility] ttb 17:34 16:17 Home Meds: [facility] SL [facility]
[2016-12-16] MEDS ORDERED: MAALOX 30 ML SUSP *UDC PO PRN (19:45)
[2016-12-16 19:51] VITALS: BP 125/80
[2016-12-16] MEDS ORDERED: QUEtiapine FUMARATE 50 MG TAB PO PRN (20:15)
[2016-12-16] MEDS: CLARITHROMYCIN 250 MG TAB PO SCH (21:00)
[2016-12-16] MEDS: QUEtiapine FUMARATE 50 MG TAB PO SCH (22:33)
[2016-12-16] MEDS: diphenhydrAMINE 50 MG CAP PO SCH (22:33)
[2016-12-16] MEDS: GABAPENTIN 300 MG CAP PO SCH (22:33)
[2016-12-16] MEDS: PANTOPRAZOLE 40MG TAB (PROTONIX) PO SCH (22:33)
[2016-12-16] MEDS: PREGABALIN 100 MG CAP (LYRICA) PO SCH (22:33)
[2016-12-16] MEDS: AMOXICILLIN 500 MG CAP PO SCH (22:33)
[2016-12-16] MEDS: NICOTINE 21MG/24HR 1 EA TRANSDERMAL TD SCH (22:34)
[2016-12-17] MEDS: ALBUTEROL 90 MCG/ACT 8GM HFA INHALER INH PRN ×2 (04:13→10:39)
[2016-12-17] MEDS: ACETAMINOPHEN TAB 650MG DOSE (2X325MG) PO PRN ×3 (04:14→20:40)
[2016-12-17 07:19] VITALS: BP 117/80
[2016-12-17] MEDS: AMOXICILLIN 500 MG CAP PO SCH ×2 (08:27→20:38)
[2016-12-17] MEDS: PANTOPRAZOLE 40MG TAB (PROTONIX) PO SCH ×3 (08:27→20:38)
[2016-12-17] MEDS: MULTIVITAMINS/MINERALS THERAP 1 TAB PO SCH (08:27)
[2016-12-17] MEDS: GABAPENTIN 300 MG CAP PO SCH ×3 (08:27→20:39)
[2016-12-17] MEDS: lamoTRIgine 100MG TAB PO SCH (08:27)
[2016-12-17] MEDS: CLARITHROMYCIN 250 MG TAB PO SCH ×2 (08:27→20:39)
[2016-12-17] MEDS: PREGABALIN 100 MG CAP (LYRICA) PO SCH ×3 (08:28→20:38)
[2016-12-17] MEDS: NICOTINE 21MG/24HR 1 EA TRANSDERMAL TD SCH (08:28)
--- NOTE | 2016-12-17 11:36 | HPEPDOC ---
Medical History and Physical Date of Admission Dec 16, 2016 at 18:25 History and Physical PCP: [facility] HPI: 41yoF admitted to [facility] for Unspecified depressive disorder, being medically examined today. The patient states she has been in a lot of stress and has had a lot of stressful events including recently being diagnosed with H pylori. She has been following with orthopedics for her chronic pain. She states her medications were not controlling her pain. She has been using Suboxone off the streets. Dr. Candelaria has been evaluating elbow pain and nerve conduction studies are pending for upper extremities. She states she was prescribed Cymbalta however it was not covered by her insurance. She also states she was advised to wear elbow braces however those were also not covered by her insurance. She states she did have MRI of cervical and lumbosacral spine completed indicating degenerative disc disease. She states she has been under a lot of stress related to her chronic pain. She states she has chronic neck pain , bilateral elbow pain. Sometimes this causes weakness in her arms. She has numbness and tingling in her hands. She has chronic low back pain. She does not complain of weakness, numbness, or tingling in lower extremities. No loss of bowel or bladder control. She has been following regularly at orthopedics for her chronic pain. Denies any fevers, chills, weakness, fatigue, [place], CP, SOB, cough, palpitations, abdominal pain, N/V/D or changes in bowel or bladder habits. PMHx: Asthma Chronic Hepatitis C- no previous treatment Depression Bipolar D/O Insomnia Hx of Drug use - in remission x 3 years per pt. Chronic neck pain Chronic back pain Chronic pain- Follows with Dr Candelaria [facility] [place] spine 09/18. Cervical spondylosis C2-3, 6-7. MRI lumbosacral spine 09/18. Disc bulges L34, 4-5. Minimal canal stenosis L5-S1. H Pylori positive- currently receiving treatment PSHX: Tubal ligation x 2 SOCHX: From: [place] Marital Status: Kids: 4. Employment: Unemployed ETOH: Denies Smoking: One and a half packs per day Illicit Drugs: History of heroin use. Recently using Suboxone off the street. IV Drug Use: Previous history of IV heroin. Declines HIV testing. States she has previously been screened. Tattoos done unprofessionally: Yes, 17 years ago. Declines HIV testing as notes she has previously been screened. Declines rescreening. FAMHX: Mother: Alive, well Father: secondary to an accident, age 57 Siblings: Alive, one older sister with HTN Children: Alive, well Unexpected deaths due to medical reasons: None. ROS: As noted in HPI, otherwise 10pt ROS of systems reviewed and remarkable only for LMP 12/05/16. PE: GEN: 41yoF, appears stated age. Well-nourished, well developed. No acute distress. Alert and oriented x 3. Teary during visit. HEENT: Normocephalic, atraumatic. Pupils equal round reactive to light. Extraocular movements are intact. No nystagmus appreciated. Sclera nonicteric. Conjunctiva without injection. Nose midline. Moist mucous membranes. Upper dentures in place. Pharynx pink and moist, no cobblestoning. Neck supple, trachea midline. No lymphadenopathy or thyromegaly appreciated. CHEST: Regular rate and rhythm, +S1, +S2 LUNGS: Clear to auscultation bilaterally. No wheezes, rales, or rhonchi. Breathing appears symmetric and easy. Patient is speaking in full sentences. No accessory muscle use. ABD: Round, soft, non-tender, non-distended. +Bowel sounds throughout. No rebound or guarding. No costovertebral angle tenderness. EXT: Pulses 2+ bilaterally dorsalis pedis and radial. No lower extremity edema appreciated. SKIN: [place], dry, warm. Capillary refill <2sec. No rashes. NEURO: Alert and oriented x 3. No focal deficits appreciated. There is mild tenderness over the lower cervical spine and left lumbar paraspinal muscles. EKG: Pending A&P: 41yoF admitted to [facility] for Unspecified depressive disorder 1. Psych. Plan per Psychiatry. EKG pending. Add HCG to admission labs. 2. Nicotine dependence. Patch available. 3. Chronic pain. Patient currently remains on Lyrica 200 mg 3 times a day, gabapentin 600 mg 3 times a day. Will request opinion from pain management regarding chronic pain. Apply Lidoderm patch to neck and low back 12 hours on 12 hours off. 4. Follow up with [facility]. 5. Suboxone use. Withdrawal per psychiatric team. 6. Chronic Hepatitis C. Liver enzymes slightly elevated likely secondary to this. Arrange referral to Dr. Knox. 7. Leukocytosis. Mild. Patient asymptomatic, afebrile. No signs or symptoms of infection on exam. Recheck CBC in a.m. 8. Asthma. Continue albuterol as needed. 9. HX of IV drug use and Tattoos done unprofessionally. Declines HIV testing as notes she has previously been screened. 10. H. pylori. Continues with current course of clarithromycin 250 mg by mouth twice a day, amoxicillin 500 mg every 8 hours and Protonix 40 mg 3 times a day. 11. Flu vaccine is ordered for patient. 12. Staff member present throughout exam, Cami COYLE. Vital Signs Vital Signs Label Value Date Time Patient Temperature 96.8 degrees F 12/17/16 07 Temperature Source Tympanic 12/17/16 07 Pulse 95 12/17/16 0719 Respiratory Rate 16 bpm 12/17/16 07 Blood Pressure Assessment 117/80 (92) 12/17/16 0719 Laboratory Data Labs 24H Item Value Date Time White Blood Count 10.8 K/mm3 H 12/15/16 1650 Red Blood Count 4.68 M/mm3 12/15/16 1650 Hemoglobin 14.3 g/dl 12/15/16 1650 Hematocrit 42.3 % 12/15/16 1650 Mean Corpuscular Volume 90.4 fl 12/15/16 1650 Mean Corpuscular Hemoglobin 30.5 pg 12/15/16 1650 Mean Corpuscular Hemoglobin Concent 33.7 g/dl 12/15/16 1650 Red Cell Distribution Width 12.0 % 12/15/16 1650 Platelet Count 187 k/mm3 12/15/16 1650 Sodium Level 138 MEQ/L 12/15/16 1650 Potassium Level 4.1 MEQ/L 12/15/16 1650 Chloride Level 106 MEQ/L 12/15/16 1650 Carbon Dioxide Level 23 MEQ/L 12/15/16 1650 Anion Gap 9 MEQ/L 12/15/16 1650 Blood Urea Nitrogen 8 MG/DL 12/15/16 1650 Creatinine 0.79 MG/DL 12/15/16 1650 Glomerular Filtration Rate > 60.0 12/15/16 1650 Fasting Glucose 106 MG/DL H 12/15/16 1650 Calcium Level 8.6 MG/DL 12/15/16 1650 Total Bilirubin 0.3 MG/DL 12/15/16 1650 Direct Bilirubin < 0.1 MG/DL 12/15/16 1650 Aspartate Amino Transf (AST/SGOT) 64 U/L H 12/15/16 1650 Alanine Aminotransferase (ALT/SGPT) 89 U/L H 12/15/16 1650 Total Protein 7.2 GM/DL 12/15/16 1650 Albumin 3.7 GM/DL 12/15/16 1650 Albumin/Globulin Ratio 1.06 12/15/16 1650 Amylase Level 63 U/L 12/15/16 1650 Lipase 208 U/L 12/15/16 1650 Thyroid Stimulating Hormone (TSH) 0.855 uIU/ML 12/15/16 1650 Salicylates Level 5.3 MG/DL 12/15/16 1650 Urine Opiates Screen NEGATIVE 12/15/16 1650 Urine Methadone Screen NEGATIVE 12/15/16 1650 Acetaminophen Level < 2.0 UG/ML L 12/15/16 1650 Urine Barbiturates, Qualitative NEGATIVE 12/15/16 1650 Urine Tricyclic Antidepressants NEGATIVE 12/15/16 1650 Urine Amphetamine Level NEGATIVE 12/15/16 1650 Urine Benzodiazepines Screen NEGATIVE 12/15/16 1650 Urine Cocaine Metabolite NEGATIVE 12/15/16 1650 Urine Cannabinoids NEGATIVE 12/15/16 1650 Ethyl Alcohol Level < 0.003 % 12/15/16 1650 Home Medications Scheduled Amoxicillin (Amoxicillin) 500 Mg Cap 500 MG PO BID Clarithromycin (Clarithromycin) 250 Mg Tab 250 MG PO Q12H Gabapentin (Gabapentin) 600 Mg Tab 600 MG PO TID Lamotrigine (Lamotrigine) 200 Mg Tab 200 MG PO DAILY Multivitamins *[facility] STOCKED* (Thera M Plus *[facility] STOCKED*) 1 Tab Tab 1 TAB PO DAILY Pantoprazole Sodium (Pantoprazole Sodium) 40 Mg Tab 40 MG PO TID Pregabalin (Lyrica) 200 Mg Cap 200 MG PO TID Quetiapine Fumerate (Quetiapine Fumarate) 50 Mg Tab 50 MG PO QHS MAY REPEAT x 1 FOR PANIC ATTACKS Scheduled PRN Albuterol Sulfate (Ventolin Hfa) 200 Puff/8 Gm Aers 2 PUFF INH QID PRN PRN SHORTNESS OF BREATH SEE COMMENTS Diphenhydramine HCl (Diphenhydramine HCl) 50 Mg Cap 50 MG PO QHS PRN PRN SLEEP Allergies Coded Allergies: No Known Allergies (Verified , 05/09/03) Christine Rendon Dec 17, 2016 11:36
[2016-12-17] MEDS: LIDOCAINE 5% (LIDODERM) PATCH TD SCH (11:53)
[2016-12-17] MEDS: MOM 30ML SUSPENSION UDC PO PRN (11:53)
[2016-12-17 12:11] LABS: CONTROL LINE HCG INT CTR LINE PRESENT
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
[2016-12-17 18:00] VITALS: BP 128/83
[2016-12-17] MEDS: diphenhydrAMINE 50 MG CAP PO SCH (20:38)
[2016-12-17] MEDS: QUEtiapine FUMARATE 50 MG TAB PO SCH (20:39)
[2016-12-17] MEDS: **NOTE PATIENT COMMENT** MISC XX SCH (20:44)
[2016-12-17] MEDS: traZODone 50 MG TAB PO PRN (22:56)
[2016-12-18 06:44] VITALS: BP 111/63
[2016-12-18 07:25] LABS: MEAN CORPUSCULAR HEMOGLOBIN 31.3 pg (27.0-33.0); MEAN CORPUSCULAR HGB CONC 33.6 g/dl (32.0-36.5); MEAN CORPUSCULAR VOLUME 93.2 fl (80.0-96.0); RED CELL DISTRIBUTION WIDTH 12.6 % (11.5-14.5); WHITE BLOOD COUNT 8.1 K/mm3 (4.0-10.0)
[2016-12-18] MEDS: NICOTINE 21MG/24HR 1 EA TRANSDERMAL TD SCH (08:25)
[2016-12-18] MEDS: PREGABALIN 100 MG CAP (LYRICA) PO SCH ×3 (08:25→20:02)
[2016-12-18] MEDS: MULTIVITAMINS/MINERALS THERAP 1 TAB PO SCH (08:26)
[2016-12-18] MEDS: lamoTRIgine 100MG TAB PO SCH (08:26)
[2016-12-18] MEDS: AMOXICILLIN 500 MG CAP PO SCH ×2 (08:26→20:02)
[2016-12-18] MEDS: LIDOCAINE 5% (LIDODERM) PATCH TD SCH (08:26)
[2016-12-18] MEDS: CLARITHROMYCIN 250 MG TAB PO SCH ×2 (08:26→20:02)
[2016-12-18] MEDS: GABAPENTIN 300 MG CAP PO SCH ×3 (08:26→20:02)
[2016-12-18] MEDS: PANTOPRAZOLE 40MG TAB (PROTONIX) PO SCH ×3 (08:26→20:02)
--- NOTE | 2016-12-18 08:38 | CR.PDOC ---
[facility] Consultation General Date of Consultation: 12/17/16 Consultation Report For: Christine Rendon Chief Complaint The patient is a 41-year-old female admitted with a reason for visit of Unspecified Depressive Do. Pain management is asked to see her for further evaluation and recommendations for treatment of neck and arm pain. History of Present Illness Delvis Kearney is a 41-year-old female who reports she has had a multi year history of neck and low back pain. She is currently under the care and management of Dr. Skinner at [facility] orth[facility]. She reports that she is having pain at the base of the neck which radiates across to both arms and down to the hands with the right side worse than the left. She reports that Dr. Skinner has prescribed elbow pads for pressure relief at the elbows. She reports that the use of these pads has helped with the numbness in her hands. She reports she also has pain in the low back with radiation to the hips. She states she is being scheduled for a nerve conduction study and following this the option of surgery is being entertained. Reports that the use of Lidoderm patch here on the unit has been helpful for the neck pain. States that she has a current H pylori infection is and is being treated with antibiotics. Notes continued GI distress and has not been able to tolerate anti-inflammatories. Home Medications Scheduled Amoxicillin (Amoxicillin) 500 Mg Cap 500 MG PO BID (Reported) Clarithromycin (Clarithromycin) 250 Mg Tab 250 MG PO Q12H (Reported) Gabapentin (Gabapentin) 600 Mg Tab 600 MG PO TID (Reported) Lamotrigine (Lamotrigine) 200 Mg Tab 200 MG PO DAILY (Reported) Multivitamins *[facility] STOCKED* (Thera M Plus *[facility] STOCKED*) 1 Tab Tab 1 TAB PO DAILY (Reported) Pantoprazole Sodium (Pantoprazole Sodium) 40 Mg Tab 40 MG PO TID (Reported) Pregabalin (Lyrica) 200 Mg Cap 200 MG PO TID (Reported) Quetiapine Fumerate (Quetiapine Fumarate) 50 Mg Tab 50 MG PO QHS (Reported) MAY REPEAT x 1 FOR PANIC ATTACKS Scheduled PRN Albuterol Sulfate (Ventolin Hfa) 200 Puff/8 Gm Aers 2 PUFF INH QID PRN PRN SHORTNESS OF BREATH (Reported) SEE COMMENTS Diphenhydramine HCl (Diphenhydramine HCl) 50 Mg Cap 50 MG PO QHS PRN PRN SLEEP ( Reported) Allergies Coded Allergies: No Known Allergies (Verified , 05/09/03) Past Medical History Medical History Past medical history bipolar disorder, depression, chronic hepatitis C, asthma, history of illicit substance use and currently obtaining Suboxone "from the street". Family History Significant Family History: Noncontributory Social History Social History As noted above. Review of Systems Subjective Constitutional: Reports: fatigue, Denies: unexplained weight loss HEENT: Reports: head aches (sinus pressure headache located behind the eyes), Denies: hearing problems, vision problems Skin: Denies: breakdown, lesions, rash Pulmonary: Denies: cough, dyspnea Cardiovascular: Denies: chest pain, edema, palpitations Gastrointestinal: Reports: abdominal pain, other (GERD currently being treated for H. pylori) Genitourinary: Denies: dysuria, hematuria, loss of bladder control Hematologic: Denies: blood dyscrasias, easy bleeding, easy bruising Endocrine: Denies: Diabetes mellitus Musculoskeletal: Reports: arm pain, hand pain (fourth and fifth fingers right hand), neck pain, shoulder pain Neurological: Reports: numbness, Denies: migraines, seizures, tremors, weakness Psych: Reports: depression Physical Examination Physical Examination Vital Signs/I&O Vital Signs Date Time Temp Pulse Resp B/P Pulse Ox O2 Delivery O2 Flow Rate FiO2 12/18/16 06:44 97.1 96 16 111/63 12/16/16 19:51 98 Room Air Recent Travel/Sick Contacts: Denies: Recent sick contacts, Recent travel General Exam: Positive: alert, attentive, no acute distress, oriented times three, talkative ENT EXAM: Positive: normocephalic, other (no lymphadenopathy no thyromegaly) Chest Exam: Positive: Clear to auscultation, Negative: Rales, Wheezing Heart Exam: Positive: Normal S1, S2, Regular rate and rhythm, Negative: Murmurs, Rubs Abdominal Exam: Positive: Nondistended, Normal bowel sounds, Soft Extremity Exam: Negative: Edema Skin Exam: Positive: Dry, Warm, Negative: Lesions, Rashes Neuro Exam: Positive: Other (decreased sensation over the ulnar distribution right forearm and fourth and fifth fingers) Psych Exam: Positive: Oriented times three, Other (good eye contact, good historian) Musculoskeletal Point tenderness over the cervical thoracic spinous processes and across the trapezius muscles bilaterally. Trigger points and tight fibrous bands are identified over this area. Tenderness also noted over the lumbar spinous processes. Decreased audiologist strength bilateral upper extremities. Decreased range of motion with neck flexion and extension and rotation. Rises easily to a standing position. Posture upright. Gait nonantalgic. Assessment Assessment: Per imaging studies done at [facility] cervical spondylosis, myofascial pain syndrome lumbar disc displacement, cervical radiculopathy Recommendation and Plan Delvis is looking forward to getting back to Dr. Skinner and continuing her treatment through his services. At this time, would recommend continuation of Lidoderm patches, if possible, per unit protocol, would allow her to use her elbow splints. If her GI system can tolerate it would recommend use of Celebrex while she is inpatient. Would use this at 200 mg once per day. A small dose of a muscle relaxer such as tizanidine 2 mg 3 times per day may also be helpful. Would recommend the on unit yoga classes. Would not recommend the use of any opiates. Thank you Ms. Rendon for allowing us to participate in the care of your patient Quentin Kearney. Should you have any questions we'll be glad to discuss this with you at any time. Tina Osman Dec 18, 2016 08:38
[2016-12-18] MEDS ORDERED: INFLUENZA QUADRIVALENT PF VACCINE 0.5ML SYRINGE/VIAL (90686) IM SCH (09:00)
[2016-12-18] MEDS: MOM 30ML SUSPENSION UDC PO PRN (14:28)
--- NOTE | 2016-12-18 15:27 | IPNPDOC ---
[facility] Progress Note Progress Note DATE OF SERVICE: 12/18/16 HISTORY: Patient is 41-year-old female admitted to inpatient psychiatric unit after exacerbation of symptoms of anxiety and depression which she states is secondary to multiple physical health concerns, chronic pain, and social stressors. She informs tag writer today she is aware she "jump to conclusions" yesterday adding "I just assumed you are can help me like everybody else." Patient informs tag writer today that she feels she may have misjudged her previous outpatient prescriber, indicated she is willing to return to [facility] for follow-up outpatient treatment post discharge. Patient informs tag writer she feels her current medication regimen is effective, denies need for dosing/medication changes, reports possible medication side effect of constipation, states is addressing symptoms with nursing and ways to mitigate symptoms were reviewed, denies other medication side effects. Patient rates current anxiety level as 3/ 10, depression 0/10, denies suicidal and homicidal ideation, denies urge to engage in self-injurious behavior, and denies audiovisual hallucinations. Patient states she feels confident she will benefit from outpatient psychotherapy, denies symptoms of craving or withdrawal. Patient rates current physical pain level is 3/10, informs tag writer she underwent pain management consult today adding "I feel a lot better after the consultation, knowing notes some of my options are and it's helping my anxiety." Patient has been provided with elbow pads which have improved sleep, patient indicates she is currently sleeping well with use of trazodone which she has taken 1, denies nightmares symptoms. Patient states appetite and energy levels are stable. Psychotropic Medication History: Benadryl, Lamictal, Seroquel, gabapentin, Prozac, Zoloft, Lexapro, Abilify, Celexa, Effexor. VITAL SIGNS: See below. NEW TEST RESULTS: No new results. Patient indicates she was recently prescribed Cymbalta to address pain, states she was unable to take medication due to insurance company declining coverage. UDS negative on admission HCG negative on admission EKG pending Medical challenges include: DDD, H. pylori, asthma, chronic neck and back pain with numbness to hands and tingling to lower extremities, Hep C +. History of restless leg syndrome, tubal ligation, 2 CURRENT MEDICATIONS: See below. MENTAL STATUS EXAMINATION: Patient is a 41-year-old, unemployed, , mother of 4 children, who exhibits no symptoms of irritability today, is pleasant and cooperative, walks with steady gait, appears stated age, makes improved eye contact, appears well groomed and showered, dressed in own clothing. Speech: Is of normal rate, rhythm, volume, generally coherent and spontaneous. Language skills are appears generally intact. Thought processes: Clear, goal-directed. Thought content: Appears generally logical, no paranoia noted. Abstract reasoning, and computation: Requires further assessment Description of associations: Appear intact. Description of abnormal or psychotic thoughts: denies hallucinations, delusions , preoccupation with violence, homicidal or suicidal ideation, and obsessions Judgment: Poor. Insight: Poor. Orientation to time, place and person. Recent and remote memory: Appears intact Attention span and concentration: Appears limited. Language: Within normal limits. Fund of knowledge: Unable to assess. Mood: "I feel pretty good, I know I have a good life." Appears less depressed and anxious, mood appears level at time of interaction, no irritability Affect: Constricted, but brightens, generally congruent with mood DIAGNOSES: Unspecified mood disorder, polysubstance use disorder, panic disorder with agoraphobia, rule out adjustment disorder with mixed anxiety and depressed mood, rule out bipolar disorder, rule out major depression ASSESSMENT: Patient has been visible on unit, attending unit activities, engaging with select peers, has showered, appears brighter, exhibits no irritability, and is easily engaged today for assessment purposes. Patient indicates she has undergone pain management consult and attributes reduction in symptoms of anxiety and depression to consult. Patient today indicates current medication regimen is "very effective," denies need for medication adjustment/ change, and denies medication side effects other than symptoms of constipation which are currently being addressed by nursing. Current medication regimen is as follows: Lamictal 200 mg by mouth every morning Benadryl 50 mg by mouth daily at bedtime Gabapentin 600 mg by mouth 3 times a day Seroquel 50 mg by mouth daily at bedtime Trazodone 50 mg when necessary for sleep Patient denies suicidal and homicidal ideation and is able to verbalize how to access supportive services on the unit if needed. Patient indicates when ready for discharge she wants to return home with children, informs tag writer today that she is employed by the [employer] and plans to return to work post discharge. Patient denies symptoms of craving or withdrawal, states today she is willing to return to [facility] for outpatient psychotherapy and medication management services, informs tag writer today she also has an advocate at [facility], feels support system is adequate. Will monitor patient's response to the inpatient environment, need for medication/dosing adjustments, patient safety, and readiness for discharge. MANAGEMENT PLAN: Continue current medication regimen Maintain safety precautions Patient to attend groups and participate in unit programming to develop coping strategies Engage patient in discharge planning process and arrange meeting with command to evaluate safe discharge planning when appropriate Patient to follow up with PCM and pain management upon discharge TIME SPENT: 35 minutes Vital Signs Vital Signs Date Time Temp Pulse Resp B/P Pulse Ox O2 Delivery O2 Flow Rate FiO2 12/18/16 06:44 97.1 96 16 111/63 12/16/16 19:51 98 Room Air Laboratory Data CBC/BMP Laboratory Tests 12/18/16 07:04 Red Blood Count 4.22, Mean Corpuscular Volume 93.2, Mean Corpuscular Hemoglobin 31.3, Mean Corpuscular Hemoglobin Concent 33.6, Red Cell Distribution Width 12.6 Current Medications Current Medications Acetaminophen (Tylenol Tab) 650 mg Q6HP PRN PO HEADACHE or DISCOMFORT Last administered on 12/17/16 20:40; Start 12/16/16 at 19:45; Stop 01/15/17 at 19:44 Al Hydrox/Mg Hydrox/Simethicone (Mylanta) 30 ml Q4HP PRN PO HEARTBURN/ INDIGESTION; Start 12/16/16 at 19:45; Stop 01/15/17 at 19:44 Albuterol Sulfate (Proventil, Ventolin Hfa) 2 puff QIDP PRN INH SHORTNESS OF BREATH Last administered on 12/17/16 10:39; Start 12/16/16 at 19:45; Stop 01/15 at 19:44 Amoxicillin (Amoxicillin) 500 mg BID PO Last administered on 12/18/16 08:26; Start 12/16/16 at 21:00; Stop 12/23/16 at 20:59 Clarithromycin (Biaxin) 250 mg 1T@2145 PO ; Start 12/15/16 at 21:45; Stop at 18:29; Status DC Clarithromycin (Biaxin) 250 mg BID PO Last administered on 12/18/16 08:26; Start 12/16/16 at 21:00; Stop 12/23/16 at 20:59 Diphenhydramine HCl (Benadryl) 50 mg QHS PO Last administered on 12/17/16 20: 38; Start 12/16/16 at 21:00; Stop 01/15/17 at 20:59 Gabapentin (Neurontin) 600 mg TID PO Last administered on 12/18/16 08:26; Start 12/16/16 at 21:00; Stop 01/15/17 at 20:59 Home Med (Med Rec Complete!) ASDIRECTED XX ; Start 12/16/16 at 17:15; Stop at 18:30; Status DC Influenza Virus Vaccine (Fluzone Quadrivalent Pf Vaccine) 0.5 ml 1T@09 IM Last administered on 12/18/16 08:25; Start 12/18/16 at 09:00; Stop 12/18/16 at 23:59 Lamotrigine (LaMICtal) 200 mg QAM PO Last administered on 12/18/16 08:26; Start 12/17/16 at 09:00; Stop 01/16/17 at 08:59 Lidocaine (Lidoderm Patch) 2 patch DAILY TD Last administered on 12/18/16 08: 26; Start 12/17/16 at 09:00; Stop 01/16/17 at 08:59 Magnesium Hydroxide (Milk Of Magnesia) 30 ml DAILYPRN PRN PO CONSTIPATION Last administered on 12/18/16 14:28; Start 12/16/16 at 19:45; Stop 01/15/17 at 19:44 Multivitamins (Theragram-M) 1 tab DAILY PO Last administered on 12/18/16 08:26 ; Start 12/17/16 at 09:00; Stop 01/16/17 at 08:59 Nicotine (Nicoderm Cq 21mg) 1 patch DAILY TD Last administered on 12/18/16 08: 25; Start 12/16/16 at 09:00; Stop 01/15/17 at 08:59 Non-Formulary Medication ( See Comment Field Below ) REMOVE LIDODERM PATCH DAILY@21 XX Last administered on 12/17/16 20:44; Start 12/17/16 at 21:00; Stop 01/16/17 at 20:59 Pantoprazole Sodium (Protonix) 40 mg TID PO Last administered on 12/18/16 08: 26; Start 12/16/16 at 21:00; Stop 01/15/17 at 20:59 Pregabalin (Lyrica) 200 mg TID PO Last administered on 12/18/16 08:25; Start 12/16/16 at 21:00; Stop 12/23/16 at 20:59 Quetiapine Fumarate (SEROquel) 50 mg QHS PO Last administered on 12/17/16 20: 39; Start 12/16/16 at 21:00; Stop 01/15/17 at 20:59 Quetiapine Fumarate (SEROquel) 50 mg QHSP PRN PO may repeat X one for insomnia ; Start 12/16/16 at 20:15; Stop 01/15/17 at 20:14 Trazodone HCl (Desyrel) 50 mg QHSP PRN PO INSOMNIA Last administered on 22:56; Start 12/16/16 at 19:45; Stop 01/15/17 at 19:44 Allergies Coded Allergies: No Known Allergies (Verified , 05/09/03) Mila Tinoco Dec 18, 2016 15:27 DAILY@21 XX Last administered on 12/17/16 20:44; Start 12/17/16 at 21:00; Stop 01/16/17 at 20:59 Pantoprazole Sodium (Protonix) 40 mg TID PO Last administered on 12/18/16 08: 26; Start 12/16/16 at 21:00; Stop 01/15/17 at 20:59 Pregabalin (Lyrica) 200 mg TID PO Last administered on 12/18/16 08:25; Start 12/16/16 at 21:00; Stop 12/23/16 at 20:59 Quetiapine Fumarate (SEROquel) 50 mg QHS PO Last administered on 12/17/16 20: 39; Start 12/16/16 at 21:00; Stop 01/15/17 at 20:59 Quetiapine Fumarate (SEROquel) 50 mg QHSP PRN PO may repeat X one for insomnia ; Start 12/16/16 at 20:15; Stop 01/15/17 at 20:14 Trazodone HCl (Desyrel) 50 mg QHSP PRN PO INSOMNIA Last administered on t 22:56; Start 12/16/16 at 19:45; Stop 01/15/17 at 19:44 Allergies Coded Allergies: No Known Allergies (Verified , 05/09/03) Mila Tinoco Dec 18, 2016 15:27
[2016-12-18] MEDS: ACETAMINOPHEN TAB 650MG DOSE (2X325MG) PO PRN (16:11)
[2016-12-18 18:00] VITALS: BP 124/76
--- NOTE | 2016-12-18 19:03 | EDDOCDS ---
Physician Documentation [facility] Name: Adia Kearney Age: 41 yrs Sex: Female : 1975 Arrival Date: 12/15/2016 Time: 16:03 Bed OBSERVATION Private MD: Disposition: 12/16/16 16:07 Hospitalization ordered by Tsering Jurado for Inpatient Admission. Preliminary diagnosis is Suicidal ideations. - Bed requested for Admit. - Status is Inpatient Admission. bcj - Condition is Stable. - Problem is new. - Symptoms are unchanged. Historical: - Allergies: no known allergies; - Home Meds: 1. diphenhydramine HCl 50 mg Oral cap nightly prn 2. clarithromycin 250 mg Oral tab 1 tab every 12 hours (Last dose: 12/15/2016 07:00) 3. pregabalin 200 mg Oral cap 1 cap 3 times per day 0700, 1430, 2100 (Last dose: 12/15/2016 14:30) 4. amoxicillin 500 mg Oral cap 1 cap every 8 hours (Last dose: 12/15/2016 07:00) 5. lamotrigine 200 mg Oral tr24 1 tab once daily (Last dose: 12/15/2016 07:00) 6. quetiapine 50 mg oral Tb24 1 to 2 tabs nightly (Last dose: 12/14/2016 22:00) 7. pantoprazole 40 mg oral TbEC tid 0700, 1430, 2100 (Last dose: 12/15/2016 14:30) 8. Suboxone Unknown SL using daily pt has been taking x1 week (buying off streets) (Last dose: 12/14/2016) 9. gabapentin 600 mg Oral tab 1 tab 3 times per day - PMHx: HPylori; Panic Attacks; Bipolar disorder; - PSHx: ; - Social history: Smoking status: Patient uses tobacco products, current every day smoker. No barriers to communication noted, The patient speaks fluent Eritrean. - Family history: Not pertinent. - : The pt / caregiver states he / she is not on anticoagulants. Home medication list is obtained from the patient. - Exposure Risk Screening:: None identified. TWISTER TENDER: 12/15 16:17 LMP 12/05/2016 jjr Vital Signs: 16:05 BP 156 / 82 RA Sitting (auto/reg); Pulse 120; Resp 18; Temp 99.4(O); Pulse Ox 100% on bnb R/A; Weight 63.5 kg / 139.99 lbs; Height 5 ft. 9 in. (175.26 cm); Pain 3/10; 18:53 BP 123 / 73; Pulse 90; Resp 18; Pulse Ox 98% on R/A; Pain 0/10; ttb 23:06 BP 101 / 55; Pulse 86; Resp 18; Temp 97.5; Pulse Ox 96% ; Pain 0/10; tmm1 12/16 06:03 BP 97 / 51; Pulse 85; Resp 16; Temp 95.0(T); Pulse Ox 95% on R/A; Pain 0/10; slm 12/15 16:05 Body Mass Index 20.67 (63.50 kg, 175.26 cm) bnb MDM: 12/15 16:38 IV Saline Lock ordered. ml 16:38 NS 0.9% 1000 ml IV at bolus once ordered. ml 16:38 Consult PFS/PSA/Ammonia Operator ordered. ml 16:38 Consult PFS/PSA/Ammonia Operator: Patient's case requires discussion with on-call Psychiatrist ordered. 16:38 PSA/PFS to call Nursing Hardening Machine Operator Helper, to enter patient data on [place] Safe [place] if patient ml involuntarily admitted or transferred for SI or HI ordered. 16:38 Confirm accurate psychiatric medication list and times of last dosage ordered. ml 16:38 Detain Pt Until Medically/PFS Cleared ordered. ml 16:39 Acetaminophen Level Ordered. EDMS 16:39 Basic Metabolic Profile Ordered. EDMS 16:39 Complete Blood Count Ordered. EDMS 16:39 Drug Eval Toxicology ED Only Ordered. EDMS 16:39 Ethyl Alcohol (ethanol) Ordered. EDMS 16:39 Liver Profile Ordered. EDMS 16:39 Salicylate Level Ordered. EDMS 16:39 Thyroid Stimulating Hormone Ordered. EDMS 16:39 Lipase Ordered. EDMS 16:39 Amylase Ordered. EDMS 17:28 PSA/PFS to call Nursing Hardening Machine Operator Helper, to enter patient data [place] if patient ml4 involuntarily admitted or transferred for SI or HI complete. 17:28 Consult PFS/PSA/Ammonia Operator: Patient's case requires discussion with on-call 4 Psychiatrist complete. 17:28 Consult PFS/PSA/Ammonia Operator complete. ml4 17:34 [facility] Payment Agreement was scanned into [employer] and attached to record. jp5 17:34 Financial registration complete. jp5 18:10 Acetaminophen Level Reviewed. ml 18:10 Basic Metabolic Profile Reviewed. ml 18:10 Complete Blood Count Reviewed. ml 18:10 Liver Profile Reviewed. ml 18:10 Ethyl Alcohol (ethanol) Reviewed. ml 18:10 Salicylate Level Reviewed. ml 18:10 Thyroid Stimulating Hormone Reviewed. ml 18:10 Lipase Reviewed. ml 18:10 Amylase Reviewed. ml 18:13 CT ABD & PELVIS: IV Contrast Only Ordered. EDMS 18:44 Vital Signs ordered. ml 18:46 Drug Eval Toxicology ED Only Reviewed. ml 18:59 ED course: pt signed out to dr davis. pending ct abd/p and then psych disposiiton,mlg.ml 21:09 Ondansetron ODT Oral Disintegrating Tablet 4 mg PO once ordered. tm5 21:09 Clarithromycin 250 mg PO once ordered. tm5 21:09 Pregabalin 200 mg PO once ordered. tm5 21:09 Amoxicillin 500 mg PO once ordered. tm5 21:09 Pantoprazole 40 mg PO once ordered. tm5 22:05 E Legal paperwork was scanned into [employer] and attached to record. ml4 12/16 02:23 QUEtiapine 100 mg PO once ordered. tm5 05:15 REGULAR DIET PLASTIC JONES+DIET ordered. EDMS 07:52 ED course: pt signed out to [facility]. pt with no complaints. pending psych disposition,mlg. ml 11:09 azithromycin 250 mg PO once ordered. bcj 11:09 Pregabalin 200 mg PO once ordered. bcj 11:09 Amoxicillin 500 mg PO once ordered. bcj 11:09 lamoTRIgine 200 mg PO once ordered. bcj 11:09 Pantoprazole 40 mg PO once ordered. bcj 11:10 REGULAR DIET PLASTIC JONES+DIET ordered. EDMS 11:41 Gabapentin 600 mg PO once ordered. bcj 15:51 Admit to IMHU: ordered. EDMS 16:00 MHE Legal paperwork was scanned into [employer] and attached to record. jl 16:07 LORazepam 1 mg PO once ordered. ml 16:09 Admit to IMHU: ordered. EDMS 16:15 Admit to IMHU: ordered. EDMS 17:06 REGULAR DIET PLASTIC JONES+DIET ordered. EDMS 02 14:29 T-Sheet-- Draft Copy was scanned into [employer] and attached to record. gb Administered Medications: 12/15 17:18 Drug: NS 0.9% 1000 ml [sodium chloride 0.9 % intravenous solution] Route: IV; Rate: ttb bolus; Site: right hand; 20:00 Follow up: IV Status: Completed infusion; IV Intake: 1000ml tm5 21:36 Drug: Ondansetron ODT 4 mg [ondansetron 4 mg disintegrating tablet (1 tabs)] Route: PO; tm5 21:51 Follow up: Response: Nausea is resolved; No Adverse Reaction tm5 21:36 Drug: Pregabalin 200 mg [pregabalin 100 mg capsule (2 caps)] Route: PO; tm5 21:51 Follow up: Response: No Adverse Reaction tm5 21:36 Drug: Amoxicillin 500 mg [amoxicillin 500 mg capsule (1 caps)] Route: PO; tm5 21:51 Follow up: Response: No Adverse Reaction tm5 21:36 Drug: Pantoprazole 40 mg [pantoprazole 40 mg tablet,delayed release (1 tabs)] Route: PO;tm5 21:52 Follow up: Response: No Adverse Reaction tm5 21:54 Drug: Clarithromycin 250 mg [clarithromycin 250 mg tablet (1 tabs)] Route: PO; tm5 22:42 Follow up: Response: No Adverse Reaction 5 12/16 02:23 Drug: QUEtiapine 100 mg Route: PO; tm5 11:52 Drug: Gabapentin 600 mg [gabapentin 100 mg capsule (6 caps)] Route: PO; bcj 11:53 Drug: Pregabalin 200 mg [pregabalin 100 mg capsule (2 caps)] Route: PO; bcj 11:53 Drug: Amoxicillin 500 mg [amoxicillin 250 mg capsule (2 caps)] Route: PO; bcj 11:53 Drug: lamoTRIgine 200 mg [lamotrigine 25 mg tablet (8 tabs)] Route: PO; bcj 11:53 Drug: Pantoprazole 40 mg [pantoprazole 40 mg tablet,delayed release (1 tabs)] Route: PO;bcj 11:54 Drug: azithromycin 250 mg [azithromycin 250 mg tablet (1 tabs)] Route: PO; j 16:40 Drug: LORazepam 1 mg [lorazepam 1 mg tablet (1 tabs)] Route: PO; [facility] Signatures: Dispatcher [employer] EDMI Rob-Bassam Fairbanks MD MD ml Johnson, Bruce, RN RN [facility] Brit, Kian, PSA PSA jl Keri Willoughby, Reg Reg gb Tonya Vazquez, PSA PSA ml4 Amanda Mariscal RN RN Odilia Diaz RN RN ttb Pastora Jeronimo jp5 Jessie White,JONNA RN tm5 The chart was reviewed and I authenticate all verbal orders and agree with the evaluation and treatment provided.Corrections: (The following items were deleted from the chart) 12/15 17:20 17:19 REGULAR DIET ROOM SERVICE ED+DIET ordered. [facility] EDMI 17:34 16:16 Home Meds: clarithromycin 250 mg Oral tab 1 tab every 12 hours; [facility] ttb 17:34 16:16 Home Meds: pregabalin 200 mg Oral cap 1 cap 3 times per day; [facility] ttb 17:34 16:16 Home Meds: amoxicillin 500 mg Oral cap 1 cap every 8 hours; [facility] ttb 17:34 16:16 Home Meds: lamotrigine 200 mg Oral tr24 1 tab once daily; [facility] ttb 17:34 16:16 Home Meds: quetiapine 50 mg oral Tb24 1 to 2 tabs nightly; [facility] ttb 17:34 16:16 Home Meds: pantoprazole 40 mg oral TbEC tid; [facility] ttb 17:34 16:17 Home Meds: [facility]one SL using daily[facility] Attachments: 17:34 [facility] Payment Agreement jp5 12/17 14:29 T-Sheet-- Draft Copy gb Chart Complete MTDD
--- NOTE | 2016-12-18 19:03 | EDDOCDS ---
Physician Documentation [facility] Name: Adia Kearney Age: 41 yrs Sex: Female : 1975 Arrival Date: 12/15/2016 Time: 16:03 Bed OBSERVATION Private MD: Disposition: 12/16/16 16:07 Hospitalization ordered by Tsering Jurado for Inpatient Admission. Preliminary diagnosis is Suicidal ideations. - Bed requested for Admit. - Status is Inpatient Admission. bcj - Condition is Stable. - Problem is new. - Symptoms are unchanged. Historical: - Allergies: no known allergies; - Home Meds: 1. diphenhydramine HCl 50 mg Oral cap nightly prn 2. clarithromycin 250 mg Oral tab 1 tab every 12 hours (Last dose: 12/15/2016 07:00) 3. pregabalin 200 mg Oral cap 1 cap 3 times per day 0700, 1430, 2100 (Last dose: 12/15/2016 14:30) 4. amoxicillin 500 mg Oral cap 1 cap every 8 hours (Last dose: 12/15/2016 07:00) 5. lamotrigine 200 mg Oral tr24 1 tab once daily (Last dose: 12/15/2016 07:00) 6. quetiapine 50 mg oral Tb24 1 to 2 tabs nightly (Last dose: 12/14/2016 22:00) 7. pantoprazole 40 mg oral TbEC tid 0700, 1430, 2100 (Last dose: 12/15/2016 14:30) 8. Suboxone Unknown SL using daily pt has been taking x1 week (buying off streets) (Last dose: 12/14/2016) 9. gabapentin 600 mg Oral tab 1 tab 3 times per day - PMHx: HPylori; Panic Attacks; Bipolar disorder; - PSHx: ; - Social history: Smoking status: Patient uses tobacco products, current every day smoker. No barriers to communication noted, The patient speaks fluent Bulgarian. - Family history: Not pertinent. - : The pt / caregiver states he / she is not on anticoagulants. Home medication list is obtained from the patient. - Exposure Risk Screening:: None identified. 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 9 in. (175.26 cm); Pain 3/10; 18:53 BP 123 / 73; Pulse 90; Resp 18; Pulse Ox 98% on R/A; Pain 0/10; ttb 23:06 BP 101 / 55; Pulse 86; Resp 18; Temp 97.5; Pulse Ox 96% ; Pain 0/10; tmm1 12/16 06:03 BP 97 / 51; Pulse 85; Resp 16; Temp 95.0(T); Pulse Ox 95% on R/A; Pain 0/10; slm 12/15 16:05 Body Mass Index 20.67 (63.50 kg, 175.26 cm) bnb MDM: 12/15 16:38 IV Saline Lock ordered. ml 16:38 NS 0.9% 1000 ml IV at bolus once ordered. ml 16:38 Consult PFS/PSA/[employer]oples[employer] Hrms Developer ordered. ml 16:38 Consult PFS/PSA/Peoples[employer] Hrms Developer: Patient's case requires discussion with on-call Psychiatrist ordered. 16:38 PSA/PFS to call Nursing Assistant Product Manager, to enter patient data on [place] Safe [place] if patient ml involuntarily admitted or transferred for SI or HI ordered. 16:38 Confirm accurate psychiatric medication list and times of last dosage ordered. ml 16:38 Detain Pt Until Medically/PFS Cleared ordered. ml 16:39 Acetaminophen Level Ordered. EDMS 16:39 Basic Metabolic Profile Ordered. EDMS 16:39 Complete Blood Count Ordered. EDMS 16:39 Drug Eval Toxicology ED Only Ordered. EDMS 16:39 Ethyl Alcohol (ethanol) Ordered. EDMS 16:39 Liver Profile Ordered. EDMS 16:39 Salicylate Level Ordered. EDMS 16:39 Thyroid Stimulating Hormone Ordered. EDMS 16:39 Lipase Ordered. EDMS 16:39 Amylase Ordered. EDMS 17:28 PSA/PFS to call Nursing Assistant Product Manager, to enter patient data [place] Safe [place] if patient ml4 involuntarily admitted or transferred for SI or HI complete. 17:28 Consult PFS/PSA/[employer]oples[employer] Hrms Developer: Patient's case requires discussion with on-call 4 Psychiatrist complete. 17:28 Consult PFS/PSA/[employer]oples[employer] Hrms Developer complete. ml4 17:34 [facility] Payment Agreement was scanned into [employer] in [place] and attached to record. jp5 17:34 Financial registration complete. jp5 18:10 Acetaminophen Level Reviewed. ml 18:10 Basic Metabolic Profile Reviewed. ml 18:10 Complete Blood Count Reviewed. ml 18:10 Liver Profile Reviewed. ml 18:10 Ethyl Alcohol (ethanol) Reviewed. ml 18:10 Salicylate Level Reviewed. ml 18:10 Thyroid Stimulating Hormone Reviewed. ml 18:10 Lipase Reviewed. ml 18:10 Amylase Reviewed. ml 18:13 CT ABD & PELVIS: IV Contrast Only Ordered. EDMS 18:44 Vital Signs ordered. ml 18:46 Drug Eval Toxicology ED Only Reviewed. ml 18:59 ED course: pt signed out to dr davis. pending ct abd/p and then psych disposiiton,mlg.ml 21:09 Ondansetron ODT Oral Disintegrating Tablet 4 mg PO once ordered. tm5 21:09 Clarithromycin 250 mg PO once ordered. tm5 21:09 Pregabalin 200 mg PO once ordered. tm5 21:09 Amoxicillin 500 mg PO once ordered. tm5 21:09 Pantoprazole 40 mg PO once ordered. tm5 22:05 E Legal paperwork was scanned into [employer] in [place] and attached to record. ml4 12/16 02:23 QUEtiapine 100 mg PO once ordered. tm5 05:15 REGULAR DIET PLASTIC JONES+DIET ordered. EDMS 07:52 ED course: pt signed out to [place] pt with no complaints. pending psych disposition,mlg. ml 11:09 azithromycin 250 mg PO once ordered. bcj 11:09 Pregabalin 200 mg PO once ordered. bcj 11:09 Amoxicillin 500 mg PO once ordered. bcj 11:09 lamoTRIgine 200 mg PO once ordered. bcj 11:09 Pantoprazole 40 mg PO once ordered. bcj 11:10 REGULAR DIET PLASTIC JONES+DIET ordered. EDMS 11:41 Gabapentin 600 mg PO once ordered. bcj 15:51 Admit to IMHU: ordered. EDMS 16:00 MHE Legal paperwork was scanned into [employer] in [place] and attached to record. jl 16:07 LORazepam 1 mg PO once ordered. ml 16:09 Admit to IMHU: ordered. EDMS 16:15 Admit to IMHU: ordered. EDMS 17:06 REGULAR DIET PLASTIC JONES+DIET ordered. EDMS 02 14:29 T-Sheet-- Draft Copy was scanned into [employer] in [place] and attached to record. gb Administered Medications: 12/15 17:18 Drug: NS 0.9% 1000 ml [sodium chloride 0.9 % intravenous solution] Route: IV; Rate: ttb bolus; Site: right hand; 20:00 Follow up: IV Status: Completed infusion; IV Intake: 1000ml tm5 21:36 Drug: Ondansetron ODT 4 mg [ondansetron 4 mg disintegrating tablet (1 tabs)] Route: PO; tm5 21:51 Follow up: Response: Nausea is resolved; No Adverse Reaction tm5 21:36 Drug: Pregabalin 200 mg [pregabalin 100 mg capsule (2 caps)] Route: PO; tm5 21:51 Follow up: Response: No Adverse Reaction tm5 21:36 Drug: Amoxicillin 500 mg [amoxicillin 500 mg capsule (1 caps)] Route: PO; tm5 21:51 Follow up: Response: No Adverse Reaction tm5 21:36 Drug: Pantoprazole 40 mg [pantoprazole 40 mg tablet,delayed release (1 tabs)] Route: PO;tm5 21:52 Follow up: Response: No Adverse Reaction tm5 21:54 Drug: Clarithromycin 250 mg [clarithromycin 250 mg tablet (1 tabs)] Route: PO; tm5 22:42 Follow up: Response: No Adverse Reaction 5 12/16 02:23 Drug: QUEtiapine 100 mg Route: PO; tm5 11:52 Drug: Gabapentin 600 mg [gabapentin 100 mg capsule (6 caps)] Route: PO; bcj 11:53 Drug: Pregabalin 200 mg [pregabalin 100 mg capsule (2 caps)] Route: PO; bcj 11:53 Drug: Amoxicillin 500 mg [amoxicillin 250 mg capsule (2 caps)] Route: PO; bcj 11:53 Drug: lamoTRIgine 200 mg [lamotrigine 25 mg tablet (8 tabs)] Route: PO; bcj 11:53 Drug: Pantoprazole 40 mg [pantoprazole 40 mg tablet,delayed release (1 tabs)] Route: PO;bcj 11:54 Drug: azithromycin 250 mg [azithromycin 250 mg tablet (1 tabs)] Route: PO; j 16:40 Drug: LORazepam 1 mg [lorazepam 1 mg tablet (1 tabs)] Route: PO; [facility] Signatures: Dispatcher [employer] EDDC Rob-Bassam Fairbanks MD MD ml Johnson, Bruce, RN RN [facility] Brit, Kian, PSA PSA jl Keri Willoughby, Reg Reg gb Tonya Vazquez, PSA PSA ml4 Amanda Mariscal RN RN Odilia Diaz RN RN ttb Pastora Jeronimo jp5 Jessie White,JONNA RN tm5 The chart was reviewed and I authenticate all verbal orders and agree with the evaluation and treatment provided.Corrections: (The following items were deleted from the chart) 12/15 17:20 17:19 REGULAR DIET ROOM SERVICE ED+DIET ordered. [facility] EDDC 17:34 16:16 Home Meds: clarithromycin 250 mg Oral tab 1 tab every 12 hours; [facility] ttb 17:34 16:16 Home Meds: pregabalin 200 mg Oral cap 1 cap 3 times per day; [facility] ttb 17:34 16:16 Home Meds: amoxicillin 500 mg Oral cap 1 cap every 8 hours; [facility] ttb 17:34 16:16 Home Meds: lamotrigine 200 mg Oral tr24 1 tab once daily; [facility] ttb 17:34 16:16 Home Meds: quetiapine 50 mg oral Tb24 1 to 2 tabs nightly; [facility] ttb 17:34 16:16 Home Meds: pantoprazole 40 mg oral TbEC tid; [facility] ttb 17:34 16:17 Home Meds: [facility] SL [facility] Attachments: 17:34 [facility] Payment Agreement jp5 12/17 14:29 T-Sheet-- Draft Copy gb Chart Complete MTDD
--- NOTE | 2016-12-18 19:03 | EDDOCDS ---
Nurse's Notes [facility] Name: Adia Kearney Age: 41 yrs Sex: Female : 1975 Arrival Date: 12/15/2016 Time: 16:03 Bed OBSERVATION Private MD: Diagnosis: Suicidal ideations Presentation: 12/15 16:07 Presenting complaint: Patient states: Dr Song at [facility] spoke with her jjr this past Friday and said she could come here to speak with someone, increased depression and anxiety d/t multiple physical problems such as HPylori and suboxone use. Mental Health Triage Level: Level 1- Pt displays no suicidal or homicidal ideations and does not appear to be a danger to self or others. Adult Sepsis Screening: The patient does not have new or worsening altered mentation. Patient's respiratory rate is less than 22. Systolic blood pressure is greater than 100. Patient has a qSOFA score of 0- Negative Sepsis Screen. Suicide/Homicide risk assessment- Patient denies SI and HI but presents with another emotional, behavioral or other mental health complaint. The patient reports that he/she has not been admitted to an inpatient mental health facility in the last 30 days. The patient reports that he/she has a recent or current history of substance abuse. The patient reports that he/she has no prior history of suicide attempt and/or organized plan. The patient reports that he/she has adequate social support. Status: Patient is not a coordinator volunteer services or dependent. Transition of care: patient was not received from another setting of care. 16:07 Acuity: PRETTY Level 3 jjr 16:07 Method Of Arrival: Walkin/Carried/Asstd jjr Triage Assessment: 16:18 General: Appears in no apparent distress, Behavior is restless. Pain: Location: back of jjr neck and back. Pt Declines HIV testing. PHOTOGEOLOGIST: 16:17 LMP 12/05/2016 jjr Historical: - Allergies: no known allergies; - Home Meds: 1. diphenhydramine HCl 50 mg Oral cap nightly prn 2. clarithromycin 250 mg Oral tab 1 tab every 12 hours (Last dose: 12/15/2016 07:00) 3. pregabalin 200 mg Oral cap 1 cap 3 times per day 0700, 1430, 2100 (Last dose: 12/15/2016 14:30) 4. amoxicillin 500 mg Oral cap 1 cap every 8 hours (Last dose: 12/15/2016 07:00) 5. lamotrigine 200 mg Oral tr24 1 tab once daily (Last dose: 12/15/2016 07:00) 6. quetiapine 50 mg oral Tb24 1 to 2 tabs nightly (Last dose: 12/14/2016 22:00) 7. pantoprazole 40 mg oral TbEC tid 0700, 1430, 2100 (Last dose: 12/15/2016 14:30) 8. Suboxone Unknown SL using daily pt has been taking x1 week (buying off [employer]) (Last dose: 12/14/2016) 9. gabapentin 600 mg Oral tab 1 tab 3 times per day - PMHx: HPylori; Panic Attacks; Bipolar disorder; - PSHx: ; - Social history: Smoking status: Patient uses tobacco products, current every day smoker. No barriers to communication noted, The patient speaks fluent [place]. - Family history: Not pertinent. - : The pt / caregiver states he / she is not on anticoagulants. Home medication list is obtained from the patient. - Exposure Risk Screening:: None identified. Screenin:19 Screening information is obtained from the patient. Fall risk: No risks identified. ttb Assistance ADL's: requires no assistance with activities of daily living. Abuse/DV Screen: The patient / caregiver reports he/she is: not in a situation that causes fear, pain or injury. Nutritional screening: No deficits noted. Advance Directives: Currently, there is no health care proxy. home support is adequate. Assessment: 17:19 General: Appears distressed, well nourished, well groomed, Behavior is anxious, ttb appropriate for age, cooperative, crying, pleasant, restless. Pain: Denies pain. Neurological: Level of Consciousness is awake, alert, Oriented to person, place, time, Moves all extremities. Speech is normal, Facial symmetry appears normal. Cardiovascular: Heart tones S1 S2 present Chest pain is denied. Respiratory: No deficits noted. Airway is patent Respiratory effort is even, unlabored, Breath sounds are clear bilaterally. Denies cough, shortness of breath. GI: Reports nausea, Denies pain. GI: Reports intolerance of food. Derm: Skin is normal. Injury Description: No known injury. 17:31 General: sister Shruthi Gonzales [phone] available if needed.. ttb 17:49 General: public health social worker in speaking with pt. NAD noted. IVF"s infusing per orders. . ttb 18:45 Reassessment: Patient appears in no apparent distress at this time. VS obtained. Pt ttb resting on stretcher awaiting CT. Report given to next RN to continue care.. 20:10 Reassessment: Patient appears in no apparent distress at this time. Patient denies pain tm5 at this time. Patient states feeling better. Patient states symptoms have improved. General: Appears in no apparent distress, Behavior is appropriate for age, cooperative. Pain: Denies pain. Respiratory: Airway is patent Respiratory effort is even, unlabored, Respiratory pattern is regular, symmetrical. Derm: Skin is pink, warm & dry. normal. 23:15 General: Appears in no apparent distress, comfortable, Behavior is quiet. General: pt slm resting on stretcher with eyes closed security observing . Respiratory: Airway is patent Respiratory effort is even, unlabored. 12/16 00:17 General: Appears in no apparent distress, comfortable, to be sleeping. Behavior is slm quiet. General: pt asleep on stretcher security observing . Respiratory: Airway is patent Respiratory effort is even, unlabored. Derm: Skin is pink, warm & dry. 02:00 General: pt awake asking sitter for her Seroquel that she didn't receive with her other tm5 medications at 2100, pt also asking to use her Ventolin inhaler that she has in her backpack that is locked up, Dr Brush aware of this & approves that pt can use her own inhaler & that pt can receive Seroquel 100mg PO at this time . 02:00 Respiratory: Airway is patent Respiratory effort is even, unlabored, Respiratory tm5 pattern is regular, symmetrical, Breath sounds are clear bilaterally. 03:00 General: Appears in no apparent distress, comfortable, to be sleeping. Behavior is slm quiet. General: security observing . Respiratory: Airway is patent Respiratory effort is even, unlabored. Derm: Skin is pink, warm & dry. 03:43 General: Appears in no apparent distress, comfortable, to be sleeping. Behavior is slm quiet. General: pt asleep on stretcher security observing . Respiratory: No deficits noted. 04:15 Reassessment: Patient appears in no apparent distress at this time. Patient states tm5 feeling better. Patient states symptoms have improved. pt resting with eyes closed, resp easy, no s/s of any distress at this time . 04:40 General: Appears in no apparent distress, comfortable, to be sleeping. Behavior is slm quiet. General: pt asleep on stretcher security observing . Respiratory: Airway is patent Respiratory effort is even, unlabored. 05:50 General: Appears in no apparent distress, comfortable, Behavior is appropriate for age, slm cooperative. General: resting on stretcher denies needs security observing . Pain: Denies pain. Neurological: Level of Consciousness is awake, alert, obeys commands. Respiratory: Airway is patent Respiratory effort is even, unlabored. 08:05 General: Appears in no apparent distress, comfortable, Behavior is cooperative. Pain: bcj Denies pain. Derm: Skin is pink, warm & dry. 10:29 General: Appears in no apparent distress, comfortable, Behavior is cooperative. Pain: bcj Denies pain. Derm: Skin is pink, warm & dry. 13:05 General: Appears in no apparent distress, comfortable, Behavior is cooperative. Pain: bcj Denies pain. Derm: Skin is pink, warm & dry. 17:54 General: Appears comfortable, Behavior is cooperative. Pain: Denies pain. Neurological: bcj Level of Consciousness is awake, alert. Derm: Skin is pink, warm & dry. Mental Health Eval: 12/15 18:19 Mental health consult is initiated at 17:30. Status: The patient is not a ml4 coordinator volunteer services or dependent. [facility] Behavioral Health: The patient is not an established patient of [facility] Behavioral Health. Referral Information: Evaluation referral is generated by the patient himself / herself. The patient was referred for evaluation because increase panic attacks, expressed vague SI to Sister due to on-going medical problems . Subjective: The patients chief complaint is pt states, "I'm afraid I'm going to ."Pt reports having increase panic attacks for the past 2 wks due to some on-going medical problems. Admits having abdominal pain and was recently diagnosed with H Pylori by PCP Nov, 2016. Admits she has lost 28 pounds within the last month due to nausea and vomiting. Due to the severity of her symptoms pt feels she is going to . States she also seeks tx with Dr. Candelaria at [facility] for chronic neck pain and has placed her on Cymbalta, however pt's insurance would not cover prescription. Pt feels overwhelmed with both medical issues(H Pylori & Neck Pain) and feels her medical issues has triggered her anxiety to exacerbate. As a result, unable to function in her daily life. She states she is unable to work, eat, or sleep and states, "her body is shutting down." She describes her panic attacks as "not being able to breathe and I feel someone is chasing me." Additionally, she feels her PCP and Psychiatrists are not taking her concerns seriously and feels that are not addressing her problems. Pt denies SI and HI, however spoke to her Sister who admits pt expressed SI 2 days ago by stating, "everyone would be better off without me, I should just kill myself." Sister feels pt is embarrassed and will not admit feeling suicidal. Pt also has a hx of substance abuse. 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 Admits Suboxone relieves all her pain and discomfort. Pt is requesting hospitalization due to feeling she is not safe to return home. . Delusions are denied. Patient's mood is anxious, Hallucinations are denied. Mental Health history: anxiety, Bipolar Disorder, depression, abusing prescription drugs. heroin. panic attacks, Mental Health Admissions: last admission to [facility] Mar, 2015 Current Outpatient Mental Health Services: Psychiatrist / Agency: Dr. Su/[facility]I . Therapist / Agency: Joie/[facility]. Tool Engine Lathe Set Up Operator / Agency: Sandie/[facility]. Current living environment is Family / Home Support: adequate, sister is very supportive. Pt has 2 children , age 16 and 17 who are with Sister currently. The patient currently lives with his / her children. The patient is . Patient presents to Emergency Department with the following symptoms within the past 2 weeks: agitation, agoraphobia, anger, anxiety, decreased appetite, depressed mood, drug abuse, feelings of helplessness/hopelessness, panic attacks, poor concentration, poor impulse control, sleep disturbance - insomnia, suicidal ideation with no plan, weight loss of 28 pounds. Substance abuse: Patient uses tobacco 1 pack Frequency daily, pt has been abusing Suboxone . Mental status exam: Patients appearance is thin, Patient's behavior is cooperative, Speech is normal. Affect is appropriate. Mood is anxious. depressed. irritable. Hallucinations are denied. Appetite is poor. Memory is good. Energy level is normal. Content of thought is depressive. due to suicidal threat Thought process is intact. Cognitive level is oriented to person, place, time and situation Patient's insight is fair. Judgement is fair. Rapport with interviewer is good. Suicidal Ideation is denied. Homicidal ideation is denied. Narrative: Awaiting medical clearance... 22:00 Disposition: Medically cleared for disposition by Bryce Brush DO Psychiatric ml4 Consult is performed by phone with Dr Tsering Jurado The patient is to be transferred to to accepting facility. [facility] Admission Criteria: The patient requires continuous observation and/or control to protect self, others or property. The patient's care requires a multi-modal treatment plan under close supervision and coordination due to the complexity and severity of the patient's symptoms. The patient requires administration and monitoring of psychoactive medications by skilled medical providers due to the side effects of the psychoactive medications or significant dosage adjustments. Legal Status: Patient's legal status will be [facility] Services admission: . [place] Safe Act: [place] Safe Act is applicable to this patient. The patient poses a risk to self or other and the Nursing Imaging Account Manager has been notified. He/She will enter the patient's data. DSM-V Differential Diagnosis: Bipolar II Disorder (F31.81) Current or most recent episode unspecified. Narrative: [facility] is currently at capacity. All surrounding facilities([facility], [facility], [facility], [facility], [place], [facility], [facility], are at capacity. Due to the poor weather conditions, [facility] is unable to travel until conditions improve. 12/16 15:54 Narrative: A bed has become available on [facility] & admission orders have been obtained jl from Dr. Jurado. Patient to be admitted on . Vital Signs: 12/15 16:05 BP 156 / 82 RA Sitting (auto/reg); Pulse 120; Resp 18; Temp 99.4(O); Pulse Ox 100% on bnb R/A; Weight 63.5 kg; Height 5 ft. 9 in. (175.26 cm); Pain 3/10; 18:53 BP 123 / 73; Pulse 90; Resp 18; Pulse Ox 98% on R/A; Pain 0/10; ttb 23:06 BP 101 / 55; Pulse 86; Resp 18; Temp 97.5; Pulse Ox 96% ; Pain 0/10; tmm1 12/16 06:03 BP 97 / 51; Pulse 85; Resp 16; Temp 95.0(T); Pulse Ox 95% on R/A; Pain 0/10; slm 12/15 16:05 Body Mass Index 20.67 (63.50 kg, 175.26 cm) bnb Vitals: 12/15 16:05 Log In Time: December 15, 2016 at 16:02. bnb ED Course: 16:05 Patient visited by Katelyn Swartz PCA. bnb 16:05 Patient moved to Waiting bnb 16:07 Patient visited by Katelyn Swartz PCA. bnb 16:12 Triage Initiated jjr 16:18 Patient moved to [facility] jjr 16:20 Report received from rn - psych. triage level #1, no obs. req. \\T\\ This time. pjf 16:22 Bassam Toledo MD is Attending Physician. ml 16:22 Patient visited by Bassam Toledo MD. ml 16:30 The patient / caregiver is instructed regarding the plan of care and ED course. ttb Accompanied by Family Member, Patient has correct armband on for positive identification. 16:30 Security observing. ttb 16:43 Patient visited by [employer] Security Aide. pjf 17:11 Inserted peripheral IV: 20gauge IV in right hand and blood collected. Patient tolerated ttb the procedure well. Labs drawn. 17:13 Patient visited by [employer] Security Aide. pjf 17:22 Patient visited by Odilia Dias RN. ttb 17:31 Patient visited by [employer] Security Aide. pjf 17:33 Pt greeted and oriented to ED. Patient advised of names of staff involved in care, pjf location of call aly, wait times and NPO status. Placed in psych safe attire. Bed in low position. Call light in reach. Side rails up X 1. Adult w/ patient. Property removed, secured in belongings bag- Placed in locker #3. Door closed. Noise minimized. Visitors limited. Report received from - psych. triage level #2, +si. Psych Safety Check: Location: Psych Room. 17:34 [facility] Payment Agreement was scanned into [employer] and attached to record. jp5 17:46 Patient visited by [employer] Security Aide. pjf 17:55 Patient name changed from Adia\\S\\\\S\\Kearney\\S\\ to Adia\\S\\ \\S\\Kearney. EDMS 17:58 Patient visited by [employer] Security Aide. pjf 18:19 Patient visited by [employer] Security Aide. pjf 18:41 Patient visited by [employer] Security Aide. pjf 18:45 Security observing. ttb 18:58 Patient visited by Almita Chamorro PCA. tmm1 19:10 Patient visited by Jessie White RN. tm5 19:13 Report received from Almita Mendoza, assumed care of pt at this time. tm5 19:15 Patient visited by Almita Chamorro PCA. tmm1 19:20 Attending Physician role handed off by Bassam Toledo MD mm11 19:20 Bryce Brush DO is Attending Physician. mm11 19:23 Patient visited by Odilia Dias RN. ttb 19:50 Psych Safety Check: Location: Psych Room. Visual Assessment: Cooperative. tmm1 20:09 Patient visited by Jessie White RN. tm5 20:[address] tm5 20:10 Psych Safety Check: Location: Psych Room. Visual Assessment: Cooperative. tmm1 20:25 Psych Safety Check: Location: Psych Room. Visual Assessment: Cooperative. tmm1 20:40 Psych Safety Check: Location: Psych Room. Visual Assessment: Cooperative. tmm1 20:57 CT ABD & PELVIS: IV Contrast Only Returned. EDMS 21:00 Psych Safety Check: Location: Psych Room. Visual Assessment: Cooperative. tmm1 21:07 Patient moved to OBSERVATION mm11 21:15 Psych Safety Check: Location: Psych Room. Visual Assessment: Cooperative. tmm1 21:36 Psych Safety Check: Location: Psych Room. Visual Assessment: Cooperative. tmm1 21:37 Discontinued lock intact, bleeding controlled, pressure dressing applied, No tm5 redness/swelling at site. No procedures done that require assistance. 21:50 Psych Safety Check: Location: Psych Room. Visual Assessment: Cooperative. tmm1 22:05 [facility] Legal paperwork was scanned into [employer] and attached to record. ml4 22:10 Psych Safety Check: Location: Psych Room. Visual Assessment: Cooperative. tmm1 22:29 Psych Safety Check: Location: Psych Room. Visual Assessment: Cooperative. tmm1 22:45 Psych Safety Check: Location: Psych Room. Visual Assessment: Cooperative. tmm1 23:05 Psych Safety Check: Location: Psych Room. Visual Assessment: Cooperative. tmm1 23:15 Nata Wilson LPN is Primary Nurse. slm 23:16 Patient visited by Nata Wilson LPN. slm 23:31 Psych Safety Check: Location: Psych Room. Visual Assessment: Sleeping. tmm1 23:45 Psych Safety Check: Location: Psych Room. Visual Assessment: Sleeping. tmm1 12/16 00:01 Psych Safety Check: Location: Psych Room. Visual Assessment: Sleeping. tmm1 00:15 Psych Safety Check: Location: Psych Room. Visual Assessment: Sleeping. tmm1 00:30 Psych Safety Check: Location: Psych Room. Visual Assessment: Sleeping. tmm1 00:45 Psych Safety Check: Location: Psych Room. Visual Assessment: Sleeping. tmm1 01:00 Psych Safety Check: Location: Psych Room. Visual Assessment: Sleeping. tmm1 01:15 Psych Safety Check: Location: Psych Room. Visual Assessment: Sleeping. tmm1 01:28 Patient visited by Jessie White RN. tm5 01:30 Psych Safety Check: Location: Psych Room. Visual Assessment: Sleeping. tmm1 01:46 Psych Safety Check: Location: Psych Room. Visual Assessment: Sleeping. tmm1 02:07 Psych Safety Check: Location: Psych Room. Visual Assessment: Cooperative. tmm1 02:10 Patient visited by Jessie White RN. tm5 02:22 Patient visited by Jessie White RN. tm5 02:32 Psych Safety Check: Location: Psych Room. Visual Assessment: Sleeping. tmm1 02:41 Psych Safety Check: Location: Psych Room. Visual Assessment: Sleeping. tmm1 02:48 Psych Safety Check: Location: Psych Room. Visual Assessment: Sleeping. tmm1 03:00 Psych Safety Check: Location: Psych Room. Visual Assessment: Sleeping. tmm1 03:15 Psych Safety Check: Location: Psych Room. Visual Assessment: Sleeping. tmm1 03:30 Psych Safety Check: Location: Visual Assessment: Cooperative. tmm1 03:43 Patient visited by Nata Wilson LPN. slm 03:56 Psych Safety Check: Location: Psych Room. Visual Assessment: Sleeping. tmm1 04:15 Psych Safety Check: Location: Psych Room. Visual Assessment: Sleeping. tmm1 04:30 Psych Safety Check: Location: Psych Room. Visual Assessment: Sleeping. tmm1 04:44 Psych Safety Check: Location: Psych Room. Visual Assessment: Sleeping. tmm1 04:59 Psych Safety Check: Location: Psych Room. Visual Assessment: Sleeping. tmm1 05:00 Patient visited by Nata Wilson LPN. slm 05:15 Psych Safety Check: Location: Psych Room. Visual Assessment: Sleeping. tmm1 05:16 Patient visited by Jessie White RN. tm5 05:37 Psych Safety Check: Location: Psych Room. Visual Assessment: Sleeping. tmm1 05:51 Psych Safety Check: Location: Psych Room. Visual Assessment: Cooperative. tmm1 06:11 Psych Safety Check: Location: Psych Room. Visual Assessment: Sleeping. tmm1 06:28 Psych Safety Check: Location: Psych Room. Visual Assessment: Cooperative. tmm1 06:46 Patient visited by Almita Chamorro PCA. tmm1 06:58 Patient visited by Jessie White RN. tm5 06:58 Report given to Gonsalo Mukherjee RN. tm5 07:12 Patient visited by Hernandez Shaffer. rn1 07:16 Patient visited by Hernandez Shaffer. rn1 07:30 Patient visited by Hernandez Shaffer. rn1 07:45 Patient visited by Hernandez Shaffer. rn1 07:52 Attending Physician role handed off by Bryce Brush DO ml 07:52 Bassam Toledo MD is Attending Physician. ml 08:01 Patient visited by Hernandez Shaffer. rn1 08:05 No apparent distress. Resting quietly. Awaiting disposition. bcj 08:05 Patient visited by Gonsalo Mukherjee RN. bcj 08:05 Security observing. bcj 08:15 Patient visited by Hernandez Shaffer. rn1 08:34 Patient visited by Hernandez Shaffer. rn1 08:46 Patient visited by Hernandez Shaffer. rn1 09:03 Patient visited by Hernandez Shaffer. rn1 09:15 Patient visited by Hernandez Shaffer. rn1 09:33 Patient visited by Hernandez Shaffer. rn1 09:47 Patient visited by Hernandez Shaffer. rn1 10:06 Patient visited by Hernandez Shaffer. rn1 10:29 No apparent distress. Resting quietly. Awaiting disposition. bcj 10:29 Security observing. bcj 10:30 Patient visited by Gonsalo Mukherjee RN. bcj 10:38 Patient visited by Hernandez Shaffer. rn1 10:48 Patient visited by Hernandez Shaffer. rn1 10:53 Patient visited by Hernandez Shaffer. rn1 11:01 Patient visited by Hernandez Shaffer. rn1 11:18 Patient visited by Hernandez Shaffer. rn1 11:31 Patient visited by Hernandez Shaffer. rn1 11:45 Patient visited by Hernandez Shaffer. rn1 12:00 Patient visited by Hernandez Shaffer. rn1 12:19 Patient visited by Hernandez Shaffer. rn1 12:31 Patient visited by Hernandez Shaffer. rn1 13:05 No apparent distress. Resting quietly. Awaiting disposition. bcj 13:05 Security observing. bcj 13:06 Patient visited by Gonsalo Mukherjee RN. bcj 13:46 Patient visited by Shelia Mccray. lr2 14:01 Patient visited by Shelia Mccray. lr2 14:16 Patient visited by Heranndez Shaffer. rn1 14:38 Patient visited by Hernandez Shaffer. rn1 14:57 Patient visited by Hernandez Shaffer. rn1 15:15 Patient visited by Hernandez Shaffer. rn1 15:30 Patient visited by Hernandez Shaffer. rn1 16:00 [facility] Legal paperwork was scanned into [employer] and attached to record. jl 16:01 Patient visited by Hernandez Shaffer. rn1 16:07 Tsering Jurado is Hospitalizing Provider. ml 16:18 Patient visited by Hernandez Shaffer. rn1 16:55 Patient visited by Hernandez Shaffer. rn1 17:00 Patient visited by Hernandez Shaffer. rn1 17:24 Patient visited by Hernandez Shaffer. rn1 17:34 Patient visited by Hernandez Shaffer. rn1 17:45 Patient visited by Hernandez Shaffer. rn1 17:54 No apparent distress. Resting quietly. Awaiting bed assignment. bcj 17:54 Security observing. bcj 17:55 Patient visited by Gonsalo Mukherjee RN. j 18:02 Patient visited by Gonsalo Mukherjee RN. j 18:02 Patient visited by Gonsalo Mukherjee RN. [facility] 12/17 14:29 T-Sheet-- Draft Copy was scanned into [employer] and attached to record. gb Administered Medications: 12/15 17:18 Drug: NS 0.9% 1000 ml [sodium chloride 0.9 % intravenous solution] Route: IV; Rate: ttb bolus; Site: right hand; 20:00 Follow up: IV Status: Completed infusion; IV Intake: 1000ml tm5 21:36 Drug: Ondansetron ODT 4 mg [ondansetron 4 mg disintegrating tablet (1 tabs)] Route: PO; tm5 21:51 Follow up: Response: Nausea is resolved; No Adverse Reaction tm5 21:36 Drug: Pregabalin 200 mg [pregabalin 100 mg capsule (2 caps)] Route: PO; tm5 21:51 Follow up: Response: No Adverse Reaction tm5 21:36 Drug: Amoxicillin 500 mg [amoxicillin 500 mg capsule (1 caps)] Route: PO; tm5 21:51 Follow up: Response: No Adverse Reaction tm5 21:36 Drug: Pantoprazole 40 mg [pantoprazole 40 mg tablet,delayed release (1 tabs)] Route: PO;tm5 21:52 Follow up: Response: No Adverse Reaction tm5 21:54 Drug: Clarithromycin 250 mg [clarithromycin 250 mg tablet (1 tabs)] Route: PO; tm5 22:42 Follow up: Response: No Adverse Reaction [facility] 12/16 02:23 Drug: QUEtiapine 100 mg Route: PO; tm5 11:52 Drug: Gabapentin 600 mg [gabapentin 100 mg capsule (6 caps)] Route: PO; j 11:53 Drug: Pregabalin 200 mg [pregabalin 100 mg capsule (2 caps)] Route: PO; [facility] 11:53 Drug: Amoxicillin 500 mg [amoxicillin 250 mg capsule (2 caps)] Route: PO; [facility] 11:53 Drug: lamoTRIgine 200 mg [lamotrigine 25 mg tablet (8 tabs)] Route: PO; [facility] 11:53 Drug: Pantoprazole 40 mg [pantoprazole 40 mg tablet,delayed release (1 tabs)] Route: PO;j 11:54 Drug: azithromycin 250 mg [azithromycin 250 mg tablet (1 tabs)] Route: PO; bcj 16:40 Drug: LORazepam 1 mg [lorazepam 1 mg tablet (1 tabs)] Route: PO; bcj Attachments: 12/16 16:00 E Legal paperwork jl Intake: 12/15 20:00 IV: 1000.00ml; Total: 1000.00ml. tm5 Order Results: Lab Order: Acetaminophen Level; SPEC'M 12/15/16 16:50 Test: ACETAMINOPHEN LEVEL; Value: < 2.0; Range: 10.0-30.0; Abnormal: Below low normal; Units: UG/ML; Status: F Lab Order: Basic Metabolic Profile; SPEC'M 12/15/16 16:50 Test: GLUCOSE, FASTING; Value: 106; Range: 70-105; Abnormal: Above high normal; Units: MG/DL; Status: F Test: BLOOD UREA NITROGEN; Value: 8; Range: 7-18; Units: MG/DL; Status: F Test: CREATININE FOR GFR; Value: 0.79; Range: 0.55-1.02; Units: MG/DL; Status: F Test: GLOMERULAR FILTRATION RATE; Value: > 60.0; Range: >60; Status: F Test: SODIUM LEVEL; Value: 138; Range: 136-145; Units: MEQ/L; Status: F Test: POTASSIUM SERUM; Value: 4.1; Range: 3.5-5.1; Units: MEQ/L; Status: F Test: CHLORIDE LEVEL; Value: 106; Range: 98-107; Units: MEQ/L; Status: F Test: CARBON DIOXIDE LEVEL; Value: 23; Range: 21-32; Units: MEQ/L; Status: F Test: ANION GAP; Value: 9; Range: 8-16; Units: MEQ/L; Status: F Test: CALCIUM LEVEL; Value: 8.6; Range: 8.5-10.1; Units: MG/DL; Status: F Test Note: ; Units are mL/min/1.73 m2 Chronic Kidney Disease Staging per NKF: Stage I & II GFR >=60 Normal to Mildly Decreased Stage III GFR 30-59 Moderately Decreased Stage IV GFR 15-29 Severely Decreased Stage V GFR <15 Very Little GFR Left ESRD GFR <15 on MANAGER PSYCHIATRY Lab Order: Complete Blood Count; SPEC'M 12/15/16 16:50 Test: WHITE BLOOD COUNT; Value: 10.8; Range: 4.0-10.0; Abnormal: Above high normal; Units: K/mm3; Status: F Test: RED BLOOD COUNT; Value: 4.68; Range: 4.00-5.40; Units: M/mm3; Status: F Test: HEMOGLOBIN; Value: 14.3; Range: 12.0-16.0; Units: g/dl; Status: F Test: HEMATOCRIT; Value: 42.3; Range: 36.0-47.0; Units: %; Status: F Test: MEAN CORPUSCULAR VOLUME; Value: 90.4; Range: 80.0-96.0; Units: fl; Status: F Test: MEAN CORPUSCULAR HEMOGLOBIN; Value: 30.5; Range: 27.0-33.0; Units: pg; Status: F Test: MEAN CORPUSCULAR HGB CONC; Value: 33.7; Range: 32.0-36.5; Units: g/dl; Status: F Test: RED CELL DISTRIBUTION WIDTH; Value: 12.0; Range: 11.5-14.5; Units: %; Status: F Test: PLATELET COUNT, AUTOMATED; Value: 187; Range: 150-450; Units: k/mm3; Status: F Lab Order: Drug Eval Toxicology ED Only; SPEC'M 12/15/16 16:50 Test: AMPHETAMINES LEVEL URINE; Value: NEGATIVE; Range: NEGATIVE; Status: F Test: BARBITURATES URINE; Value: NEGATIVE; Range: NEGATIVE; Status: F Test: BENZODIAZEPINES URINE; Value: NEGATIVE; Range: NEGATIVE; Status: F Test: CANNABINOIDS URINE; Value: NEGATIVE; Range: NEGATIVE; Status: F Test: COCAINE METABOLITE URINE; Value: NEGATIVE; Range: NEGATIVE; Status: F Test: METHADONE URINE; Value: NEGATIVE; Range: NEGATIVE; Status: F Test: OPIATES URINE; Value: NEGATIVE; Range: NEGATIVE; Status: F Test: TRICYCLIC ANTIDEPRESS URINE; Value: NEGATIVE; Range: NEGATIVE; Status: F Test Note: ; ALL PRESUMPTIVE POSITIVE FINDINGS ARE UNCONFIRMED NORMAL VALUES THRESHOLD IN NG/ML AMPHETAMINES 1000 METHAMPHETAMINES 1000 BARBITURATES 300 BENZODIAZEPINES 300 CANNABINOIDS (THC) 50 COCAINE METABOLITE 300 METHADONE 300 OPIATES 300 PHENCYCLIDINE 25 TRICYCLIC ANTIDEPRESSANTS 1000 RESULTS ARE FOR MEDICAL PURPOSES ONLY. ALL URINE SPECIMENS WILL BE SAVED FOR 3 DAYS. IF CONFIRMATION OF A PRESUMPTIVE POSTIVE SCREEN RESULT IS DESIRED, CALL CHEMISTRY ([phone]) AND REQUEST URINE TO BE SENT TO REFERENCE LAB. FOR A LIST OF CLOSELY RELATED COMPOUNDS PLEASE CALL THE LAB. Lab Order: Ethyl Alcohol (ethanol); [facility] 12/15/16 16:50 Test: ETHYL ALCOHOL (ETHANOL); Value: < 0.003; Range: 0.000-0.010; Units: %; Status: F Lab Order: Liver Profile; [facility] 12/15/16 16:50 Test: AST/SGOT; Value: 64; Range: 15-37; Abnormal: Above high normal; Units: U/L; Status: F Test: ALT/SGPT; Value: 89; Range: 12-78; Abnormal: Above high normal; Units: U/L; Status: F Test: ALKALINE PHOSPHATASE; Value: 84; Range: 45-117; Units: U/L; Status: F Test: BILIRUBIN,TOTAL; Value: 0.3; Range: 0.2-1.0; Units: MG/DL; Status: F Test: BILIRUBIN,DIRECT; Value: < 0.1; Range: 0.0-0.2; Units: MG/DL; Status: F Test: TOTAL PROTEIN; Value: 7.2; Range: 6.4-8.2; Units: GM/DL; Status: F Test: ALBUMIN; Value: 3.7; Range: 3.2-5.2; Units: GM/DL; Status: F Test: ALBUMIN/GLOBULIN RATIO; Value: 1.06; Range: 1.00-1.93; Status: F Lab Order: Salicylate Level; [facility] 12/15/16 16:50 Test: SALICYLATE LEVEL; Value: 5.3; Range: 5.0-30.0; Units: MG/DL; Status: F Lab Order: Thyroid Stimulating Hormone; [facility] 12/15/16 16:50 Test: THYROID STIMULATING HORMONE; Value: 0.855; Range: 0.358-3.740; Units: uIU/ML; Status: F Lab Order: Lipase; [facility] 12/15/16 16:50 Test: LIPASE; Value: 208; Range: 73-393; Units: U/L; Status: F Lab Order: Amylase; SPEC'M 12/15/16 16:50 Test: AMYLASE; Value: 63; Range: 25-115; Units: U/L; Status: F Radiology Order: CT ABD & PELVIS: IV Contrast Only Test: CT ABD & PELVIS: IV Contrast Only REASON FOR EXAMINATION: 22 pound weight loss; ; CT of the abdomen and pelvis with contrast; Clinical statement: weight loss.; Technique: Multiple axial CT images were obtained from the base of the lungs through the floor of the; pelvis utilizing 5 mm axial slices after administration of nonionic intravenous contrast. Coronal an; d sagittal reconstructions were also obtained.; No comparison is available.; Findings:; Chest: The visualized lung bases are clear.; Abdomen: The liver, spleen, pancreas, kidneys, gallbladder, and adrenal glands are unremarkable. The; aorta is within normal limits. There is no evidence of abdominal lymphadenopathy or ascites.; Pelvis: Moderate amount of stool fills the colon.The bowel is otherwise unremarkable, with no obstruc; tive or inflammatory changes. The urinary bladder is within normal limits. The other pelvic structure; s appear grossly intact. There is no evidence of pelvic lymphadenopathy. There is a trace amount of f; ree fluid in the cul-de-sac, likely physiologic in nature.; Bones: There are no suspicious osseous abnormalities seen.; Impression: Mild constipation. Otherwise unremarkable CT examination of the abdomen and pelvis.; ; Outcome: 16:30 CT Study completed. ttb 20:11 Discharge Assessment: patient administered narcotics - no. tm5 12/16 16:07 Decision to Hospitalize by Provider. ml 17:58 The following High Risk Discharge criteria are identified: None. Admitted to [facility] accompanied by tech, via wheelchair. Condition: stable. 18:02 Patient left the ED. [facility] Signatures: Dispatcher [employer] EDMS Bassam Toledo MD MD ml Johnson, Bruce, RN RN [facility] Kian Perea, PSA PSA Keri Mcdonald, Dwight [facility], Security Aide Kalenf Tonya Vazquez, PSA PSA ml4 BrushSandra bernardew, DO DO mm11 Amanda Mariscal, RN RN jjOdilia Knight RN RN ttb Almita Chamorro, BAGMAN/WOMAN BAGMAN/WOMAN tmm1 Nata Wilson,APPRAISAL ANALYST APPRAISAL ANALYST slm Hernandez Shaffer rn1 Pastora Jeronimo jp5 Jessie White,JONNA RN tm5 Katelyn Swartz, BAGMAN/WOMAN BAGMAN/WOMAN bnb Shelia Mccray lr2 Corrections: (The following items were deleted from the chart) 12/15 17:34 16:16 Home Meds: clarithromycin 250 mg Oral tab 1 tab every 12 hours; [facility] ttb 17:34 16:16 Home Meds: pregabalin 200 mg Oral cap 1 cap 3 times per day; [facility] ttb 17:34 16:16 Home Meds: amoxicillin 500 mg Oral cap 1 cap every 8 hours; [facility] ttb 17:34 16:16 Home Meds: lamotrigine 200 mg Oral tr24 1 tab once daily; [facility] ttb 17:34 16:16 Home Meds: quetiapine 50 mg oral Tb24 1 to 2 tabs nightly; [facility] ttb 17:34 16:16 Home Meds: pantoprazole 40 mg oral TbEC tid; [facility] ttb 17:34 16:17 Home Meds: [facility] SL [facility] Complete MTDD
--- NOTE | 2016-12-18 19:15 | REP ---
KUB, TWO VIEWS: HISTORY: Obstruction. Air is present in the small and large intestine. There are no air fluid levels or dilated loops or intestine. There is no pneumoperitoneum. A large quantity of stool is present in the colon. IMPRESSION: 1. Nonspecific bowel gas pattern. 2. There is a large amount of stool in the colon. Signed by Loc Alvarado MD 12/18/2016 07:18 P
[2016-12-18] MEDS: QUEtiapine FUMARATE 50 MG TAB PO SCH (20:02)
[2016-12-18] MEDS: diphenhydrAMINE 50 MG CAP PO SCH (20:02)
[2016-12-18] MEDS: **NOTE PATIENT COMMENT** MISC XX SCH (20:04)
[2016-12-18] MEDS ORDERED: MAGNESIUM CITRATE 300 ML BTL PO ONE (21:00)
[2016-12-18] MEDS: traZODone 50 MG TAB PO PRN (21:53)
[2016-12-19] MEDS: ACETAMINOPHEN TAB 650MG DOSE (2X325MG) PO PRN ×2 (05:06→14:35)
[2016-12-19 07:00] VITALS: BP 135/74
[2016-12-19] MEDS: GABAPENTIN 300 MG CAP PO SCH ×3 (08:33→20:58)
[2016-12-19] MEDS: AMOXICILLIN 500 MG CAP PO SCH ×2 (08:33→20:58)
[2016-12-19] MEDS: PANTOPRAZOLE 40MG TAB (PROTONIX) PO SCH ×3 (08:33→20:57)
[2016-12-19] MEDS: CLARITHROMYCIN 250 MG TAB PO SCH ×2 (08:33→20:57)
[2016-12-19] MEDS: lamoTRIgine 100MG TAB PO SCH (08:34)
[2016-12-19] MEDS: MULTIVITAMINS/MINERALS THERAP 1 TAB PO SCH (08:34)
[2016-12-19] MEDS: NICOTINE 21MG/24HR 1 EA TRANSDERMAL TD SCH (08:34)
[2016-12-19] MEDS: PREGABALIN 100 MG CAP (LYRICA) PO SCH ×3 (08:34→20:57)
[2016-12-19] MEDS: LIDOCAINE 5% (LIDODERM) PATCH TD SCH (08:35)
[2016-12-19] MEDS: ALBUTEROL 90 MCG/ACT 8GM HFA INHALER INH PRN (08:35)
--- NOTE | 2016-12-19 08:55 | ECGEPIP ---
Stationary ECG Study [facility] Test Date: 2016-12-17 Pat Name: KATHARINA LEES Department: Room: [place] [address] Gender: F [employer] Trimmer: : [id number] Requested By: Christine Rendon Order Number: [id number] Reading MD: Addy Topete Measurements Intervals [place] Rate: 101 P: 57 VA: 156 QRS: 70 QRSD: 92 T: 31 QT: 337 QTc: 437 Interpretive Statements SINUS TACHYCARDIA Otherwise normal study Electronically Signed On 12-19-2016 8:55:37 EST by Addy oTpete
[2016-12-19] MEDS: MOM 30ML SUSPENSION UDC PO PRN (10:02)
[2016-12-19 18:00] VITALS: BP 115/63
--- NOTE | 2016-12-19 19:21 | IPNPDOC ---
[facility] Progress Note Progress Note DATE OF SERVICE: 12/19/16 HISTORY: Animation Director met with patient today to evaluate treatment progress on inpatient unit. Patient reiterates today she believes her symptoms of anxiety and depression are secondary to multiple physical health concerns including chronic pain and social stressors. Patient reiterates today she wants to return to treatment under previous outpatient prescriber, adds she will request to be seen more than once every 3 months for medication management, denies need for increased medication management but states "I want to talk to him more often so I feel like he knows me better." Patient indicates current medication regimen is effective, denies need for dosing adjustment or changes, and denies medication side effects. Patient indicates constipation she was experiencing yesterday has since resolved, attributes to antibiotic she has been taking. Patient rates current anxiety level as 2/10, depression 0/10, denies suicidal and homicidal ideation, denies urge to engage in self-injurious behavior, and denies audiovisual hallucinations. Patient states she feels confident she will benefit from outpatient psychotherapy, denies symptoms of craving or withdrawal. Patient rates current physical pain level is 2/10, informs brief writer she feels less pain and pain related anxiety since undergoing pain management consult yesterday. Patient indicates she has been sleeping well with use of trazodone, denies nightmare symptoms, states appetite and energy levels remain stable. Addendum: Patient informs brief writer she misinformed [facility] ER staff when said that she was suicidal, notes she was never suicidal adding, "I knew I had to say that in order to be admitted, I was losing it, I was overwhelmed and I couldn't handle it and I needed a break." Per head start coordinator, patient's boyfriend also indicated that patient misinformed ER staff and that her sister also misinformed ER staff when she reported that patient had verbalized suicidal ideation. Patient's boyfriend also apparently indicated the patient's sister has been staying in home and "partying," which was distressful to patient , apparently patient's sister has since moved out of the home. operating room coordinator is attempting to contact patient's ACR worker to gather additional background information, verify safety for patient to return to home, and begin coordinating discharge planning. Psychotropic Medication History: Benadryl, Lamictal, Seroquel, gabapentin, Prozac, Zoloft, Lexapro, Abilify, Celexa, Effexor. VITAL SIGNS: See below. NEW TEST RESULTS: No new results. Patient indicates she was recently prescribed Cymbalta to address pain, states she was unable to take medication due to insurance company declining coverage. UDS negative on admission HCG negative on admission EKG pending Medical challenges include: DDD, H. pylori, asthma, chronic neck and back pain with numbness to hands and tingling to lower extremities, Hep C +. History of restless leg syndrome, tubal ligation, 2 CURRENT MEDICATIONS: See below. MENTAL STATUS EXAMINATION: Patient is a 41-year-old, unemployed, , mother of 4 children, who exhibits no symptoms of irritability today, is pleasant and cooperative, walks with steady gait, appears stated age, makes good eye contact, appears well groomed and showered, dressed in own clothing. Speech: Is of normal rate, rhythm, volume, generally coherent and spontaneous. Language skills are appears generally intact. Thought processes: Clear, goal-directed. Thought content: Appears generally logical, no paranoia noted. Abstract reasoning, and computation: Requires further assessment Description of associations: Appear intact. Description of abnormal or psychotic thoughts: denies hallucinations, delusions , preoccupation with violence, homicidal or suicidal ideation, and obsessions Judgment: Poor, some improvement. Insight: Poor, some improvement. Orientation to time, place and person. Recent and remote memory: Appears intact Attention span and concentration: Appears limited. Language: Within normal limits. Fund of knowledge: Unable to assess. Mood: "I feel better, I'm not quite as stressed and overwhelmed but I know I have some things to work on." Appears less depressed and anxious, mood appears level at time of interaction, no irritability Affect: Constricted, but brightens, generally congruent with mood DIAGNOSES: Unspecified mood disorder, polysubstance use disorder, panic disorder with agoraphobia, rule out adjustment disorder with mixed anxiety and depressed mood, rule out bipolar disorder, rule out major depression ASSESSMENT: Patient has been visible on unit, attending unit activities, engaging with select peers, has showered, appears brighter, exhibits no irritability, and is easily engaged today for assessment purposes. Patient again attributes reduction in symptoms of anxiety and depression to pain management consult and Rx for lidocaine patch. Patient continues to report current medication regimen is effective, denies need for medication adjustment/ change, and denies medication side effects. Current medication regimen is as follows: Lamictal 200 mg by mouth every morning Benadryl 50 mg by mouth daily at bedtime Gabapentin 600 mg by mouth 3 times a day Seroquel 50 mg by mouth daily at bedtime Trazodone 50 mg when necessary for sleep Patient denies suicidal and homicidal ideation and is able to verbalize how to access supportive services on the unit if needed. Patient indicates when ready for discharge she wants to return home with children and friend/boyfriend, with plans to return to work at [employer] post discharge. Patient denies symptoms of craving or withdrawal, remains willing to return to [facility] for outpatient psychotherapy and medication management services, will continue to receive supportive services from advocate at [facility], feels support system is adequate. Will monitor patient's response to the inpatient environment, need for medication/dosing adjustments, patient safety, and readiness for discharge. MANAGEMENT PLAN: Continue current medication regimen Maintain safety precautions Patient to attend groups and participate in unit programming to develop coping strategies Engage patient in discharge planning process and arrange meeting with command to evaluate safe discharge planning when appropriate Patient to follow up with PCM and pain management upon discharge TIME SPENT: 25 dori Vital Signs Vital Signs Date Time Temp Pulse Resp B/P Pulse Ox O2 Delivery O2 Flow Rate FiO2 12/19/16 07:00 97.0 69 20 135/74 12/16/16 19:51 98 Room Air Current Medications Current Medications Acetaminophen (Tylenol Tab) 650 mg Q6HP PRN PO HEADACHE or DISCOMFORT Last administered on 12/19/16 14:35; Start 12/16/16 at 19:45; Stop 01/15/17 at 19:44 Al Hydrox/Mg Hydrox/Simethicone (Mylanta) 30 ml Q4HP PRN PO HEARTBURN/ INDIGESTION; Start 12/16/16 at 19:45; Stop 01/15/17 at 19:44 Albuterol Sulfate (Proventil, Ventolin Hfa) 2 puff QIDP PRN INH SHORTNESS OF BREATH Last administered on 12/19/16 08:35; Start 12/16/16 at 19:45; Stop 01/15 at 19:44 Amoxicillin (Amoxicillin) 500 mg BID PO Last administered on 12/19/16 08:33; Start 12/16/16 at 21:00; Stop 12/23/16 at 20:59 Clarithromycin (Biaxin) 250 mg 1T@2145 PO ; Start 12/15/16 at 21:45; Stop at 18:29; Status DC Clarithromycin (Biaxin) 250 mg BID PO Last administered on 12/19/16 08:33; Start 12/16/16 at 21:00; Stop 12/23/16 at 20:59 Diphenhydramine HCl (Benadryl) 50 mg QHS PO Last administered on 12/18/16 20: 02; Start 12/16/16 at 21:00; Stop 01/15/17 at 20:59 Gabapentin (Neurontin) 600 mg TID PO Last administered on 12/19/16 16:01; Start 12/16/16 at 21:00; Stop 01/15/17 at 20:59 Home Med (Med Rec Complete!) ASDIRECTED XX ; Start 12/16/16 at 17:15; Stop at 18:30; Status DC Influenza Virus Vaccine (Fluzone Quadrivalent Pf Vaccine) 0.5 ml 1T@09 IM Last administered on 12/18/16 08:25; Start 12/18/16 at 09:00; Stop 12/18/16 at 23:59 ; Status DC Lamotrigine (LaMICtal) 200 mg QAM PO Last administered on 12/19/16 08:34; Start 12/17/16 at 09:00; Stop 01/16/17 at 08:59 Lidocaine (Lidoderm Patch) 2 patch DAILY TD Last administered on 12/19/16 08: 35; Start 12/17/16 at 09:00; Stop 01/16/17 at 08:59 Magnesium Hydroxide (Milk Of Magnesia) 30 ml DAILYPRN PRN PO CONSTIPATION Last administered on 12/19/16 10:02; Start 12/16/16 at 19:45; Stop 01/15/17 at 19:44 Multivitamins (Theragram-M) 1 tab DAILY PO Last administered on 12/19/16 08:34 ; Start 12/17/16 at 09:00; Stop 01/16/17 at 08:59 Nicotine (Nicoderm Cq 21mg) 1 patch DAILY TD Last administered on 12/19/16 08: 34; Start 12/16/16 at 09:00; Stop 01/15/17 at 08:59 Non-Formulary Medication ( See Comment Field Below ) REMOVE LIDODERM PATCH DAILY@21 XX Last administered on 12/18/16 20:04; Start 12/17/16 at 21:00; Stop 01/16/17 at 20:59 Pantoprazole Sodium (Protonix) 40 mg TID PO Last administered on 12/19/16 16: 01; Start 12/16/16 at 21:00; Stop 01/15/17 at 20:59 Pregabalin (Lyrica) 200 mg TID PO Last administered on 12/19/16 16:01; Start 12/16/16 at 21:00; Stop 12/23/16 at 20:59 Quetiapine Fumarate (SEROquel) 50 mg QHS PO Last administered on 12/18/16 20: 02; Start 12/16/16 at 21:00; Stop 01/15/17 at 20:59 Quetiapine Fumarate (SEROquel) 50 mg QHSP PRN PO may repeat X one for insomnia ; Start 12/16/16 at 20:15; Stop 12/18/16 at 15:41; Status DC Trazodone HCl (Desyrel) 50 mg QHSP PRN PO INSOMNIA Last administered on 21:53; Start 12/16/16 at 19:45; Stop 01/15/17 at 19:44 Allergies Coded Allergies: No Known Allergies (Verified , 05/09/03) Mila Tinoco Dec 19, 2016 19:21
[2016-12-19] MEDS: diphenhydrAMINE 50 MG CAP PO SCH (20:57)
[2016-12-19] MEDS: **NOTE PATIENT COMMENT** MISC XX SCH (20:58)
[2016-12-19] MEDS: QUEtiapine FUMARATE 50 MG TAB PO SCH (21:36)
[2016-12-19] MEDS: traZODone 50 MG TAB PO PRN (22:05)
[2016-12-20 06:27] VITALS: BP 136/70
[2016-12-20] MEDS: MULTIVITAMINS/MINERALS THERAP 1 TAB PO SCH (08:05)
[2016-12-20] MEDS: AMOXICILLIN 500 MG CAP PO SCH ×2 (08:05→21:21)
[2016-12-20] MEDS: CLARITHROMYCIN 250 MG TAB PO SCH ×2 (08:05→21:21)
[2016-12-20] MEDS: lamoTRIgine 100MG TAB PO SCH (08:05)
[2016-12-20] MEDS: PANTOPRAZOLE 40MG TAB (PROTONIX) PO SCH ×3 (08:05→21:21)
[2016-12-20] MEDS: PREGABALIN 100 MG CAP (LYRICA) PO SCH ×3 (08:05→21:21)
[2016-12-20] MEDS: GABAPENTIN 300 MG CAP PO SCH ×3 (08:06→21:21)
[2016-12-20] MEDS: LIDOCAINE 5% (LIDODERM) PATCH TD SCH (09:57)
[2016-12-20] MEDS: NICOTINE 21MG/24HR 1 EA TRANSDERMAL TD SCH (09:57)
[2016-12-20] MEDS: ACETAMINOPHEN TAB 650MG DOSE (2X325MG) PO PRN ×3 (09:57→22:54)
--- NOTE | 2016-12-20 11:10 | IPNPDOC ---
Subjective Date Seen The patient was seen on 12/20/16. Subjective Chief Complaint/HPI The patient is a 41-year-old female admitted with a reason for visit of Unspecified Depressive Do. Events since last encounter Patient states feeling achy and felt warm this morning. Mild headache. Started this morning. Took some Tylenol and feeling somewhat better. Denies any other symptoms. No rhinorrhea, cough, sore throat, abdominal discomfort, nausea, vomiting. Denies chills. ENT: Denies: Dysphagia, Ear Pain, Post Nasal Drip, Sinus Congestion, Sore Throat Pulmonary: Denies: Cough, Dyspnea Cardiovascular: Denies: Chest Pain, Lt Headedness, Orthopnea, Palpitations, Paroxysmal Noc. Dyspnea Gastrointestinal: Denies: Abdominal Pain, Constipation, Diarrhea, Nausea, Vomiting Objective Physical Examination General Exam: Positive: Alert Eye Exam: Positive: PERRLA ENT Exam: Positive: Atraumatic, Mucous membr. moist/pink, Pharynx Normal Chest Exam: Positive: Clear to auscultation, Normal air movement Heart Exam: Positive: Normal S1, Normal S2, Rate Normal, Regular Rhythm, Negative: Murmurs, Rubs Skin Exam: Positive: Nl turgor and temperature Neuro Exam: Positive: Normal Gait Assessment /Plan Problems (1) Viral illness Status: Acute Problem Text: * Tmax 98.7 * Symptoms are consistent with possible viral illness * Check rapid flu * Patient was previously vaccinated for influenza * Continue Tylenol as needed * Continue to monitor. (2) H. pylori infection Status: Chronic Problem Text: * Patient remains on outpatient regimen of amoxicillin/Biaxin/Protonix (3) Chronic hepatitis C Status: Chronic Problem Text: * Arrange appointment for infectious disease at discharge Plan/VTE VTE Prophylaxis Ordered?: No (ambulatory) VS, I&O, 24H, Fishbone Vital Signs/I&O Vital Signs Date Time Temp Pulse Resp B/P Pulse Ox O2 Delivery O2 Flow Rate FiO2 12/20/16 06:27 97.4 92 16 136/70 12/16/16 19:51 98 Room Air Christine Rendon Dec 20, 2016 11:10
--- NOTE | 2016-12-20 17:07 | IPNPDOC ---
[facility] Progress Note Progress Note DATE OF SERVICE: 12/20/16 HISTORY: Notcher met with patient today to evaluate treatment progress on inpatient unit. Patient reiterates today she believes her symptoms of anxiety and depression are secondary to multiple physical health concerns including chronic pain and social stressors. Patient states she met with her [facility] social work case manager today, notes meeting went well and indicates she will be meeting with social work case manager after discharge on Friday. 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 Patient makes requests today for dosing adjustment to Seroquel, indicates she prefers to take 100 mg Seroquel at night to address mood and sleep challenges, denies desire to take trazodone for sleep. Patient states medication regimen remains otherwise effective and denies need for dosing adjustments or changes, denies medication side effects. Patient rates current anxiety level as 1/10, depression 0/10, denies suicidal and homicidal ideation, denies urge to engage in self-injurious behavior, and denies audiovisual hallucinations. Patient denies symptoms of panic and indicates mood is level. Patient states she feels confident she will benefit from outpatient psychotherapy, denies symptoms of craving or withdrawal. Patient rates current physical pain level is 2/10, informs radio script writer she feels less pain and pain related anxiety since undergoing pain management consult, however, is today experiencing "body aches" which she attributes to low -grade fever. Patient states appetite and energy levels remain stable. Patient indicates at time of discharge she intends to return to outpatient services at [facility] for psychotherapy and medication management, will also be receiving ongoing case management services from [facility], also in tends to return to group she was attending through her [facility]. Psychotropic Medication History: Benadryl, Lamictal, Seroquel, gabapentin, Prozac, Zoloft, Lexapro, Abilify, Celexa, Effexor. VITAL SIGNS: See below. NEW TEST RESULTS: No new results. Patient indicates she was recently prescribed Cymbalta to address pain, states she was unable to take medication due to insurance company declining coverage. UDS negative on admission HCG negative on admission EKG 12/17/16 SINUS TACHYCARDIA otherwise normal study Medical challenges include: DDD, H. pylori, asthma, chronic neck and back pain with numbness to hands and tingling to lower extremities, Hep C +. History of restless leg syndrome, tubal ligation, 2 12/15/[address] Mild constipation. Otherwise unremarkable CT examination of the abdomen and pelvis. 12/18/16 Abdominal xray Nonspecific bowel gas pattern, there is a large amount of stool in the colon. CURRENT MEDICATIONS: See below. MENTAL STATUS EXAMINATION: Patient is a 41-year-old, unemployed, , mother of 4 children, who exhibits no symptoms of irritability today, is pleasant and cooperative, walks with steady gait, appears stated age, makes good eye contact, appears well groomed and showered, dressed in own clothing. Speech: Is of normal rate, rhythm, volume, generally coherent and spontaneous. Language skills are appears generally intact. Thought processes: Clear, goal-directed. Thought content: Appears generally logical, no paranoia noted. Abstract reasoning, and computation: Requires further assessment Description of associations: Appear intact. Description of abnormal or psychotic thoughts: denies hallucinations, delusions , preoccupation with violence, homicidal or suicidal ideation, and obsessions Judgment: Fair, continues to improve Insight: Fair, continues to improve Orientation to time, place and person. Recent and remote memory: Appears intact Attention span and concentration: Appears limited. Language: Within normal limits. Fund of knowledge: Unable to assess. Mood: "I feel better, I'm not overwhelmed and then working on myself." Appears less depressed and anxious, mood appears level at time of interaction, no irritability Affect: Constricted, but broader and brightens frequently inappropriately, generally congruent with mood DIAGNOSES: Unspecified mood disorder, polysubstance use disorder, panic disorder with agoraphobia, rule out adjustment disorder with mixed anxiety and depressed mood, rule out bipolar disorder, rule out major depression ASSESSMENT: Patient has been visible on unit, attending unit activities, engaging with select peers, has showered, appears brighter, exhibits no irritability, and is easily engaged today for assessment purposes. Patient again attributes reduction in symptoms of anxiety and depression to pain management consult and Rx for lidocaine patch, feeling more in control of social stressors. Patient makes requests today for dose increase to Seroquel, indicates she prefers not to utilize trazodone for sleep and is requesting medication discontinuation. Patient denies suicidal and homicidal ideation and is able to verbalize how to access supportive services on the unit if needed. Patient is aware she will be monitored for dosing adjustment to Seroquel and will likely discharge to home on Friday with children and friend/boyfriend, with plans to return to work at [employer] post discharge. Patient denies symptoms of craving or withdrawal, remains willing to return to [facility] for outpatient psychotherapy and medication management services, will continue to receive supportive services from advocate at [facility], feels support system is adequate. Will monitor patient's response to medication adjustment, patient safety, and readiness for discharge. MANAGEMENT PLAN: Increase Seroquel to 100 mg po hs, continue Lamictal 200 mg by mouth every morning, Benadryl 50 mg by mouth daily at bedtime, Gabapentin 600 mg by mouth 3 times a day. Discontinue Trazodone 50 mg PRN for insomnia Maintain safety precautions Patient to attend groups and participate in unit programming to develop coping strategies Engage patient in discharge planning process and arrange meeting with command to evaluate safe discharge planning when appropriate Patient to follow up with PCM and pain management upon discharge TIME SPENT: 25 dori Vital Signs Vital Signs Date Time Temp Pulse Resp B/P Pulse Ox O2 Delivery O2 Flow Rate FiO2 12/20/16 06:27 97.4 92 16 136/70 12/16/16 19:51 98 Room Air Current Medications Current Medications Acetaminophen (Tylenol Tab) 650 mg Q6HP PRN PO HEADACHE or DISCOMFORT Last administered on 12/20/16 16:23; Start 12/16/16 at 19:45; Stop 01/15/17 at 19:44 Al Hydrox/Mg Hydrox/Simethicone (Mylanta) 30 ml Q4HP PRN PO HEARTBURN/ INDIGESTION; Start 12/16/16 at 19:45; Stop 01/15/17 at 19:44 Albuterol Sulfate (Proventil, Ventolin Hfa) 2 puff QIDP PRN INH SHORTNESS OF BREATH Last administered on 12/19/16 08:35; Start 12/16/16 at 19:45; Stop 01/15 at 19:44 Amoxicillin (Amoxicillin) 500 mg BID PO Last administered on 12/20/16 08:05; Start 12/16/16 at 21:00; Stop 12/23/16 at 20:59 Clarithromycin (Biaxin) 250 mg 1T@2145 PO ; Start 12/15/16 at 21:45; Stop at 18:29; Status DC Clarithromycin (Biaxin) 250 mg BID PO Last administered on 12/20/16 08:05; Start 12/16/16 at 21:00; Stop 12/23/16 at 20:59 Diphenhydramine HCl (Benadryl) 50 mg QHS PO Last administered on 12/19/16 20: 57; Start 12/16/16 at 21:00; Stop 01/15/17 at 20:59 Gabapentin (Neurontin) 600 mg TID PO Last administered on 12/20/16 15:40; Start 12/16/16 at 21:00; Stop 01/15/17 at 20:59 Home Med (Med Rec Complete!) ASDIRECTED XX ; Start 12/16/16 at 17:15; Stop at 18:30; Status DC Influenza Virus Vaccine (Fluzone Quadrivalent Pf Vaccine) 0.5 ml 1T@09 IM Last administered on 12/18/16 08:25; Start 12/18/16 at 09:00; Stop 12/18/16 at 23:59 ; Status DC Lamotrigine (LaMICtal) 200 mg QAM PO Last administered on 12/20/16 08:05; Start 12/17/16 at 09:00; Stop 01/16/17 at 08:59 Lidocaine (Lidoderm Patch) 2 patch DAILY TD Last administered on 12/20/16 09: 57; Start 12/17/16 at 09:00; Stop 01/16/17 at 08:59 Magnesium Hydroxide (Milk Of Magnesia) 30 ml DAILYPRN PRN PO CONSTIPATION Last administered on 12/19/16 10:02; Start 12/16/16 at 19:45; Stop 01/15/17 at 19:44 Multivitamins (Theragram-M) 1 tab DAILY PO Last administered on 12/20/16 08:05 ; Start 12/17/16 at 09:00; Stop 01/16/17 at 08:59 Nicotine (Nicoderm Cq 21mg) 1 patch DAILY TD Last administered on 12/20/16 09: 57; Start 12/16/16 at 09:00; Stop 01/15/17 at 08:59 Non-Formulary Medication ( See Comment Field Below ) REMOVE LIDODERM PATCH DAILY@21 XX Last administered on 12/19/16 20:58; Start 12/17/16 at 21:00; Stop 01/16/17 at 20:59 Pantoprazole Sodium (Protonix) 40 mg TID PO Last administered on 12/20/16 15: 39; Start 12/16/16 at 21:00; Stop 01/15/17 at 20:59 Pregabalin (Lyrica) 200 mg TID PO Last administered on 12/20/16 15:39; Start 12/16/16 at 21:00; Stop 12/23/16 at 20:59 Quetiapine Fumarate (SEROquel) 50 mg QHS PO Last administered on 12/19/16 21: 36; Start 12/16/16 at 21:00; Stop 12/20/16 at 16:58; Status DC Quetiapine Fumarate (SEROquel) 50 mg QHSP PRN PO may repeat X one for insomnia ; Start 12/16/16 at 20:15; Stop 12/18/16 at 15:41; Status DC Quetiapine Fumarate (SEROquel) 100 mg QHS PO ; Start 12/20/16 at 21:00; Stop at 20:59 Trazodone HCl (Desyrel) 50 mg QHSP PRN PO INSOMNIA Last administered on 22:05; Start 12/16/16 at 19:45; Stop 12/20/16 at 16:58; Status DC Allergies Coded Allergies: No Known Allergies (Verified , 05/09/03) Mila Tinoco Dec 20, 2016 17:06
[2016-12-20 18:00] VITALS: BP 136/65
[2016-12-20] MEDS: diphenhydrAMINE 50 MG CAP PO SCH (21:21)
[2016-12-20] MEDS: **NOTE PATIENT COMMENT** MISC XX SCH (21:23)
[2016-12-20] MEDS: QUEtiapine FUMARATE 50 MG TAB PO SCH (21:54)
[2016-12-21 07:00] VITALS: BP 132/74
[2016-12-21] MEDS: MULTIVITAMINS/MINERALS THERAP 1 TAB PO SCH (08:19)
[2016-12-21] MEDS: CLARITHROMYCIN 250 MG TAB PO SCH ×2 (08:19→21:37)
[2016-12-21] MEDS: AMOXICILLIN 500 MG CAP PO SCH ×2 (08:19→21:37)
[2016-12-21] MEDS: lamoTRIgine 100MG TAB PO SCH (08:19)
[2016-12-21] MEDS: GABAPENTIN 300 MG CAP PO SCH ×3 (08:19→21:37)
[2016-12-21] MEDS: NICOTINE 21MG/24HR 1 EA TRANSDERMAL TD SCH (08:19)
[2016-12-21] MEDS: PREGABALIN 100 MG CAP (LYRICA) PO SCH ×3 (08:20→21:36)
[2016-12-21] MEDS: PANTOPRAZOLE 40MG TAB (PROTONIX) PO SCH ×3 (08:20→21:36)
[2016-12-21] MEDS: LIDOCAINE 5% (LIDODERM) PATCH TD SCH ×2 (09:00→22:32)
[2016-12-21 18:00] VITALS: BP 129/82
[2016-12-21] MEDS: ACETAMINOPHEN TAB 650MG DOSE (2X325MG) PO PRN (18:18)
[2016-12-21] MEDS: diphenhydrAMINE 50 MG CAP PO SCH (21:36)
[2016-12-21] MEDS: QUEtiapine FUMARATE 50 MG TAB PO SCH (22:31)
[2016-12-22 06:22] VITALS: BP 109/58
[2016-12-22] MEDS: PANTOPRAZOLE 40MG TAB (PROTONIX) PO SCH ×3 (08:09→21:10)
[2016-12-22] MEDS: NICOTINE 21MG/24HR 1 EA TRANSDERMAL TD SCH (08:09)
[2016-12-22] MEDS: PREGABALIN 100 MG CAP (LYRICA) PO SCH ×3 (08:09→21:10)
[2016-12-22] MEDS: lamoTRIgine 100MG TAB PO SCH (08:10)
[2016-12-22] MEDS: GABAPENTIN 300 MG CAP PO SCH ×3 (08:10→21:10)
[2016-12-22] MEDS: CLARITHROMYCIN 250 MG TAB PO SCH ×2 (08:10→21:11)
[2016-12-22] MEDS: AMOXICILLIN 500 MG CAP PO SCH ×2 (08:10→21:09)
[2016-12-22] MEDS: MULTIVITAMINS/MINERALS THERAP 1 TAB PO SCH (08:10)
[2016-12-22] MEDS: **NOTE PATIENT COMMENT** MISC XX SCH (08:11)
[2016-12-22 18:00] VITALS: BP 148/93
[2016-12-22] MEDS: diphenhydrAMINE 50 MG CAP PO SCH (21:10)
[2016-12-22] MEDS: LIDOCAINE 5% (LIDODERM) PATCH TD SCH (21:11)
[2016-12-22] MEDS: QUEtiapine FUMARATE 50 MG TAB PO SCH (21:47)
[2016-12-23] MEDS: **NOTE PATIENT COMMENT** MISC XX SCH (06:32)
[2016-12-23] MEDS: ACETAMINOPHEN TAB 650MG DOSE (2X325MG) PO PRN (06:33)
[2016-12-23 06:46] VITALS: BP 144/69
[2016-12-23] MEDS: PANTOPRAZOLE 40MG TAB (PROTONIX) PO SCH (08:08)
[2016-12-23] MEDS: GABAPENTIN 300 MG CAP PO SCH (08:08)
[2016-12-23] MEDS: AMOXICILLIN 500 MG CAP PO SCH (08:08)
[2016-12-23] MEDS: lamoTRIgine 100MG TAB PO SCH (08:08)
[2016-12-23] MEDS: CLARITHROMYCIN 250 MG TAB PO SCH (08:08)
[2016-12-23] MEDS: PREGABALIN 100 MG CAP (LYRICA) PO SCH (08:08)
[2016-12-23] MEDS: MULTIVITAMINS/MINERALS THERAP 1 TAB PO SCH (08:08)
[2016-12-23] MEDS: NICOTINE 21MG/24HR 1 EA TRANSDERMAL TD SCH (08:10)
[2016-12-23] MEDS ORDERED: LIDO1OIN2 TOP (09:26)
[2016-12-23] MEDS ORDERED: NICO21PAT TD (09:26)
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
--- NOTE | 2016-12-23 10:33 | IPN ---
DATE OF SERVICE: 12/21/2016 SUBJECTIVE: "I am starting to feel better." OBJECTIVE: The patient is improving slowly. He is motivated for treatment, reports sleeping better with the help of medication. Denies side effects from treatment. No evidence of psychotic symptoms. Discussed treatment plan. MENTAL STATUS EXAM: The patient is dressed in [facility]. The patient is cooperative during the exam, has fair eye contact. Speech is slow and monotone. Mood is depressed and anxious. Affect is restricted. No delusions or hallucinations. Memory is fair. The patient is fully oriented. Associations are intact. Thinking is logical. Thought content is appropriate. Patient is able to contract for safety and denies suicidal or homicidal ideation during the interview. Insight and judgment is fair. ASSESSMENT: Major depressive disorder with suicidal ideation PLAN: 1. Continue with Seroquel 100 mg by mouth nightly. 2. Continue with Lamictal 200 mg by mouth every morning. 3. Continue with Neurontin 600 mg by mouth three times a day.
== END 2016-12-23 11:45 | disposition home or self-care (01) | DRG 753 ==
LOC: M ED 16:03 → M PSY 12-16 18:25
PROVIDERS: ADMIT Psychiatry & Neurology Psychiatry; ATTEND Psychiatry & Neurology Psychiatry
DX: F39 Unspecified mood [affective] disorder (principal); A04.8 Other specified bacterial intestinal infections; F32.9 Major depressive disorder, single episode, unspecified; F17.210 Nicotine dependence, cigarettes, uncomplicated; F40.01 Agoraphobia with panic disorder; J45.909 Unspecified asthma, uncomplicated; B18.2 Chronic viral hepatitis C; M43.12 Spondylolisthesis, cervical region; G47.30 Sleep apnea, unspecified; M51.26 Other intervertebral disc displacement, lumbar region; F43.23 Adjustment disorder with mixed anxiety and depressed mood; Z79.899 Other long term (current) drug therapy; F19.10 Other psychoactive substance abuse, uncomplicated

== ENCOUNTER → 2017-01-14 | Outpatient (CLI) | payer OTHER ==
[~2017-01-14] MED LIST changes: +AMOX500C PO; +CLAR250T PO; +DIPH50CA PO; +LIDO1OIN2 TOP; +NICO21PAT TD; +PANT40TA2 PO; +QUET5TAB PO; +VITMTA PO
[2017-01-14 15:46] LABS: FOLATE > 24.0 NG/ML; VITAMIN B12 LEVEL 443 PG/ML
== END ==
LOC: M LAB 13:51
PROVIDERS: ATTEND Psychiatry & Neurology Psychiatry
DX: Z51.81 Encounter for therapeutic drug level monitoring (principal); Z79.899 Other long term (current) drug therapy

== ENCOUNTER 2017-03-25 13:33 | Outpatient (RCR) | payer OTHER | END 2017-04-02 | LOC: M PT 13:33 | PROVIDERS: ATTEND Physical Medicine & Rehabilitation | DX: Z51.89 Encounter for other specified aftercare (principal); M48.06 Spinal stenosis, lumbar region; M51.26 Other intervertebral disc displacement, lumbar region ==

== ENCOUNTER 2017-04-08 12:55 | Outpatient (RCR) | payer OTHER | END 2017-05-02 | LOC: M PT 12:55 | PROVIDERS: ATTEND Physical Medicine & Rehabilitation | DX: Z51.89 Encounter for other specified aftercare (principal); M51.26 Other intervertebral disc displacement, lumbar region ==

== ENCOUNTER → 2017-05-26 | Outpatient (CLI) | payer OTHER ==
--- NOTE | 2017-05-26 15:48 | REP ---
REASON FOR EXAM: History of back pain and spinal stenosis. COMPARISON EXAMINATION: 09/20/2006. Once again, no abnormality is noted at the L1-2 and L2-3 levels. Disc space height and degree of hydrational signal is normal. No abnormal signal has developed on the imaged portion of the spinal cord. There is loss of disc space height and disc hydrational signal at L3-4 to L5-S1 inclusive and essentially unchanged. The marrow signal is again seen to be within normal limits. At the L3-4 level there is a broad based annular bulge which contacts the anterior thecal sac causing minimal compression. There is no acute disc herniation or foraminal narrowing. At the L4-5 level there is a broad based annular bulge causing flattening and straightening of the anterior thecal sac. Degenerative facet joint changes are seen bilaterally with thickening of the ligamentum flava status quo. There is no evidence of a disc extrusion or foraminal narrowing. At the L5-S1 level there is a broad based annular bulge seen with a central focal subligamentous disc protrusion status quo. Degenerative facet joint changes are again seen bilaterally with thickening of the ligamentum flava and the factors in concert are causing unchanged central canal stenosis. There is no acute disc extrusion or change in the appearance of the intervertebral foramina. IMPRESSION: Stable appearing chronic changes as described above. Signed by Carlos Alberto Nettles DO 05/26/2017 04:31 P
== END ==
LOC: M RAD 12:41
PROVIDERS: ATTEND Physical Medicine & Rehabilitation
DX: M47.812 Spondylosis without myelopathy or radiculopathy, cervical region (principal); M48.06 Spinal stenosis, lumbar region

== ENCOUNTER → 2017-07-14 | Outpatient (CLI) | payer OTHER ==
[2017-07-14 14:57] LABS: INR 1.06
== END ==
LOC: M LAB 13:24
PROVIDERS: ATTEND Physical Medicine & Rehabilitation
DX: D69.1 Qualitative platelet defects (principal)

== ENCOUNTER → 2017-07-21 | Outpatient (CLI) | payer OTHER ==
[2017-07-21 17:41] LABS: INR 1.02
== END ==
LOC: M LAB 16:40
PROVIDERS: ATTEND Physician Assistant Surgical
DX: Z01.818 Encounter for other preprocedural examination (principal); Z51.81 Encounter for therapeutic drug level monitoring; Z79.51 Long term (current) use of inhaled steroids; M51.27 Other intervertebral disc displacement, lumbosacral region

== ENCOUNTER → 2017-07-23 | Outpatient (CLI) | payer OTHER ==
[2017-07-23 17:13] LABS: COLLAGEN ADP 109 SECONDS (56-103)
== END ==
LOC: M LAB 15:38
PROVIDERS: ATTEND Physician Assistant Surgical
DX: Z01.812 Encounter for preprocedural laboratory examination (principal); M50.220 Other cervical disc displacement, mid-cervical region, unspecified level

== ENCOUNTER → 2017-08-22 | Outpatient (CLI) | payer OTHER ==
[2017-08-22 12:53] LABS: MEAN CORPUSCULAR HEMOGLOBIN 30.8 pg (27.0-33.0); MEAN CORPUSCULAR HGB CONC 34.3 g/dl (32.0-36.5); MEAN CORPUSCULAR VOLUME 90.1 fl (80.0-96.0); PLATELET COUNT, AUTOMATED 196 10^3/uL (150-450); RED CELL DISTRIBUTION WIDTH 12.8 % (11.5-14.5); WHITE BLOOD COUNT 9.5 10^3/uL (4.0-10.0)
[2017-08-22 15:03] LABS: ALBUMIN 3.8 GM/DL (3.2-5.2); ALBUMIN/GLOBULIN RATIO 1.03 (1.00-1.93); ALKALINE PHOSPHATASE 76 U/L (45-117); ALT/SGPT 91 U/L (12-78); ANION GAP 10 MEQ/L (8-16); AST/SGOT 64 U/L (15-37); BILIRUBIN,TOTAL 0.4 MG/DL (0.2-1.0); BLOOD UREA NITROGEN 7 MG/DL (7-18); CARBON DIOXIDE LEVEL 22 MEQ/L (21-32); CHLORIDE LEVEL 105 MEQ/L (98-107); CHOLESTEROL LEVEL 152 MG/DL (<200); CREATININE FOR GFR 0.61 MG/DL (0.55-1.02); GLOMERULAR FILTRATION RATE > 60.0 (>58); GLUCOSE, FASTING 88 MG/DL (70-105); PERCENT SATURATION 24.3 % (13.2-45.0); POTASSIUM SERUM 4.1 MEQ/L (3.5-5.1); SODIUM LEVEL 137 MEQ/L (136-145); TOTAL IRON BINDING CAPACITY 346 UG/DL (250-450); TOTAL PROTEIN 7.5 GM/DL (6.4-8.2); TRIGLYCERIDES LEVEL 147 MG/DL (<150)
== END ==
LOC: M LAB 12:07
PROVIDERS: ATTEND Family Medicine
DX: D64.9 Anemia, unspecified (principal); R53.83 Other fatigue; E03.9 Hypothyroidism, unspecified

== ENCOUNTER → 2017-11-25 | Outpatient (CLI) | payer OTHER | LOC: M EKG 14:45 | DX: Z13.6 Encounter for screening for cardiovascular disorders (principal) | CPT/HCPCS: 93005 ==

== ENCOUNTER → 2017-11-25 | Outpatient (CLI) | payer OTHER ==
[2017-11-25 15:24] LABS: BASO # 0.1 10^3/uL (0.0-0.2); BASO % 0.7 % (0.0-1.0); EOS # 0.1 10^3/uL (0.0-0.50); EOS % 0.9 % (0.0-3.0); HEMATOCRIT 39.4 % (36.0-47.0); HEMOGLOBIN 13.2 g/dl (12.0-16.0); IMMATURE GRANULOCYTE % 0.3 % (0-0); LYMPH # 2.3 10^3/uL (1.5-4.5); LYMPH % 30.2 % (24.0-44.0); MEAN CORPUSCULAR HEMOGLOBIN 29.9 pg (27.0-33.0); MEAN CORPUSCULAR HGB CONC 33.5 g/dl (32.0-36.5); MEAN CORPUSCULAR VOLUME 89.3 fl (80.0-96.0); MONO # 0.5 10^3/uL (0.0-0.8); MONO % 6.4 % (0.0-5.0); NEUTROPHILS # 4.7 10^3/uL (1.8-7.7); NEUTROPHILS % 61.5 % (36.0-66.0); PLATELET COUNT, AUTOMATED 216 10^3/uL (150-450); RED BLOOD COUNT 4.41 10^6/uL (4.00-5.40); RED CELL DISTRIBUTION WIDTH 12.3 % (11.5-14.5); WHITE BLOOD COUNT 7.7 10^3/uL (4.0-10.0)
[2017-11-25 15:49] LABS: CONTROL LINE HCG INT CTR LINE PRESENT; HCG, SERUM QUALITATIVE NEGATIVE (NEGATIVE)
[2017-11-25 16:03] LABS: ALBUMIN 3.6 GM/DL (3.2-5.2); ALKALINE PHOSPHATASE 69 U/L (45-117); ALT/SGPT 89 U/L (12-78); ANION GAP 8 MEQ/L (8-16); AST/SGOT 63 U/L (7-37); BILIRUBIN,TOTAL 0.3 MG/DL (0.2-1.0); BLOOD UREA NITROGEN 7 MG/DL (7-18); CALCIUM LEVEL 8.7 MG/DL (8.5-10.1); CARBON DIOXIDE LEVEL 25 MEQ/L (21-32); CHLORIDE LEVEL 107 MEQ/L (98-107); CREATININE FOR GFR 0.66 MG/DL (0.55-1.02); GLOMERULAR FILTRATION RATE > 60.0 (>58); GLUCOSE, FASTING 103 MG/DL (70-100); SODIUM LEVEL 140 MEQ/L (136-145); TOTAL PROTEIN 7.6 GM/DL (6.4-8.2)
[2017-11-29 08:06] LABS: ALPHA 2-MACROGLOBULIN 376 mg/dL (110-276); ALT 86 IU/L (0-40); APOLIPOPROTEIN A-1 119 mg/dL (116-209); FIBROSIS SCORE 0.32 (0.00-0.21); FIBROSIS STAGE F1-F2 (.); GGT 39 IU/L (0-60); HAPTOGLOBIN 112 mg/dL (34-200); HEPATITIS C QUANTITATION 1116160 IU/mL (.); HEPATITIS C VIRUS GENOTYPE 1b (.); NECROINFLAM SCORE 0.51 (0.00-0.17); NECROINFLAMM GRADE A1-A2 (.); TOTAL BILIRUBIN 0.2 mg/dL (0.0-1.2)
== END ==
LOC: M LAB 14:41
DX: B18.2 Chronic viral hepatitis C (principal)
CPT/HCPCS: 84460

== ENCOUNTER → 2017-12-24 | Outpatient (REF) | payer OTHER ==
[2017-12-26 10:13] LABS: AMPHETAMINE SCREEN, URINE Negative ng/mL (Cutoff=1000); BARBITURATES SCREEN, URINE Negative ng/mL (Cutoff=200); BENZODIAZEPINES, URINE SCREEN Negative ng/mL (Cutoff=200); CANNABINOID SCREEN, URINE Negative ng/mL (Cutoff=20); COCAINE SCREEN, URINE Negative ng/mL (Cutoff=300); CREATININE, URINE 6.9 mg/dL (20.0-300.0); FENTANYL URINE SCREEN Negative pg/mL (Cutoff=2000); METHADONE, URINE SCREEN Negative ng/mL (Cutoff=300); OPIATE SCREEN, URINE Negative ng/mL (Cutoff=300); OXYCODONE, SCREEN, URINE Negative ng/mL (Cutoff=100); PCP SCREEN, URINE Negative ng/mL (Cutoff=25); URINE BUPRENORPHINE Negative ng/mL (Cutoff=10); pH, URINE 7.3 (4.5-8.9)
== END ==
LOC: M LAB REF 22:15
DX: F19.10 Other psychoactive substance abuse, uncomplicated (principal)

== ENCOUNTER → 2018-02-05 | Outpatient (REF) | payer OTHER | LOC: M LAB REF 20:14 | DX: F19.10 Other psychoactive substance abuse, uncomplicated (principal) ==

== ENCOUNTER → 2018-02-18 | Outpatient (REF) | payer OTHER, MEDICAID | LOC: M LAB REF 19:03 | DX: F19.10 Other psychoactive substance abuse, uncomplicated (principal) ==

== ENCOUNTER → 2018-03-04 | Outpatient (REF) | payer OTHER, MEDICAID | LOC: M LAB REF 19:31 | DX: R30.0 Dysuria (principal); F19.10 Other psychoactive substance abuse, uncomplicated ==

== ENCOUNTER → 2018-03-11 | Outpatient (REF) | payer OTHER, MEDICAID | LOC: M LAB REF 16:12 | DX: F19.10 Other psychoactive substance abuse, uncomplicated (principal) | CPT/HCPCS: 80362 ==

== ENCOUNTER → 2018-03-18 | Outpatient (REF) | payer OTHER, MEDICAID | LOC: M LAB REF 16:48 | DX: F19.10 Other psychoactive substance abuse, uncomplicated (principal) ==

== ENCOUNTER → 2018-03-25 | Outpatient (REF) | payer OTHER, MEDICAID ==
[2018-04-03 03:02] LABS: AMPHETAMINE SCREEN, URINE Negative ng/mL (Cutoff=1000); BARBITURATES SCREEN, URINE Negative ng/mL (Cutoff=200); BENZODIAZEPINES, URINE SCREEN Negative ng/mL (Cutoff=200); CANNABINOID SCREEN, URINE Negative ng/mL (Cutoff=20); COCAINE SCREEN, URINE Negative ng/mL (Cutoff=300); CREATININE, URINE 14.5 mg/dL (20.0-300.0); FENTANYL URINE SCREEN Negative pg/mL (Cutoff=2000); METHADONE, URINE SCREEN Negative ng/mL (Cutoff=300); NALOXONE RESULT Positive (.); OPIATE SCREEN, URINE Negative ng/mL (Cutoff=300); OXYCODONE, SCREEN, URINE Negative ng/mL (Cutoff=100); PCP SCREEN, URINE Negative ng/mL (Cutoff=25); URINE BUPRENORPHINE Negative (Cutoff=10); URINE BUPRENORPHINE Positive (Cutoff=10); URINE BUPRENORPHINE See Final Results ng/mL (Cutoff=10); URINE NORBUPRENORPHINE Positive (.); URINE NORBUPRENORPHINE CONFIRM 80 ng/mL (Cutoff=10); pH, URINE 5.6 (4.5-8.9)
== END ==
LOC: M LAB REF 19:21
DX: F19.10 Other psychoactive substance abuse, uncomplicated (principal)

== ENCOUNTER → 2018-04-01 | Outpatient (REF) | payer OTHER, MEDICAID ==
[2018-04-09 10:16] LABS: AMPHETAMINE SCREEN, URINE Negative ng/mL (Cutoff=1000); BARBITURATES SCREEN, URINE Negative ng/mL (Cutoff=200); BENZODIAZEPINES, URINE SCREEN Negative ng/mL (Cutoff=200); CANNABINOID SCREEN, URINE Negative ng/mL (Cutoff=20); COCAINE SCREEN, URINE Negative ng/mL (Cutoff=300); CREATININE, URINE 14.1 mg/dL (20.0-300.0); FENTANYL URINE SCREEN Negative pg/mL (Cutoff=2000); METHADONE, URINE SCREEN Negative ng/mL (Cutoff=300); NALOXONE RESULT Positive (.); OPIATE SCREEN, URINE Negative ng/mL (Cutoff=300); OXYCODONE, SCREEN, URINE Negative ng/mL (Cutoff=100); PCP SCREEN, URINE Negative ng/mL (Cutoff=25); URINE BUPRENORPHINE Positive (.); URINE BUPRENORPHINE Positive (Cutoff=10); URINE BUPRENORPHINE See Final Results ng/mL (Cutoff=10); URINE BUPRENORPHINE CONFIRM 16 ng/mL (Cutoff=10); URINE NORBUPRENORPHINE Positive (.); URINE NORBUPRENORPHINE CONFIRM 76 ng/mL (Cutoff=10)
== END ==
LOC: M LAB REF 09:15
DX: F19.10 Other psychoactive substance abuse, uncomplicated (principal)

== ENCOUNTER → 2018-04-03 | Outpatient (CLI) | payer OTHER ==
[2018-04-03 15:49] LABS: LUTEINIZING HORMONE 9.2 mIU/mL
[2018-04-03 15:49] LABS: FOLLICLE STIMULATING HORMONE 6.5 mIU/mL
== END ==
LOC: M LAB 14:36
DX: N95.8 Other specified menopausal and perimenopausal disorders (principal)
CPT/HCPCS: 83001

== ENCOUNTER → 2018-04-08 | Outpatient (CLI) | payer OTHER | LOC: M RAD 16:43 | DX: D25.9 Leiomyoma of uterus, unspecified (principal); N93.9 Abnormal uterine and vaginal bleeding, unspecified | CPT/HCPCS: 76856 ==

== ENCOUNTER → 2018-04-27 | Outpatient (CLI) | payer OTHER | LOC: M RAD 09:40 | DX: M48.061 Spinal stenosis, lumbar region without neurogenic claudication (principal) | CPT/HCPCS: 72148 ==

== ENCOUNTER → 2018-05-14 | Outpatient (CLI) | payer OTHER ==
[2018-05-14 13:16] LABS: ALBUMIN 3.6 GM/DL (3.2-5.2); ALBUMIN/GLOBULIN RATIO 0.95 (1.00-1.93); ALKALINE PHOSPHATASE 68 U/L (45-117); ALT/SGPT 17 U/L (12-78); AST/SGOT 10 U/L (7-37); BILIRUBIN,DIRECT < 0.1 MG/DL (0.0-0.2); BILIRUBIN,TOTAL 0.2 MG/DL (0.2-1.0); TOTAL PROTEIN 7.4 GM/DL (6.4-8.2)
[2018-05-15 12:01] LABS: HEPATITIS B SURFACE ANTIBODY POSITIVE (POSITIVE)
[2018-05-19 14:48] LABS: HEPATITIS C QUANTITATION HCV Not Detected IU/mL (.)
== END ==
LOC: M LAB 12:10
DX: B18.2 Chronic viral hepatitis C (principal)
CPT/HCPCS: 80076

== ENCOUNTER → 2018-07-15 | Outpatient (REF) | payer OTHER ==
[2018-07-15 18:33] LABS: HEMATOCRIT 43.1 % (36.0-47.0); HEMOGLOBIN 14.3 g/dl (12.0-15.5); MEAN CORPUSCULAR HEMOGLOBIN 30.2 pg (27.0-33.0); MEAN CORPUSCULAR HGB CONC 33.2 g/dl (32.0-36.5); MEAN CORPUSCULAR VOLUME 91.1 fl (80.0-96.0); PLATELET COUNT, AUTOMATED 241 10^3/uL (150-450); RED BLOOD COUNT 4.73 10^6/uL (4.00-5.40); RED CELL DISTRIBUTION WIDTH 12.3 % (11.5-14.5); WHITE BLOOD COUNT 15.3 10^3/uL (4.0-10.0)
[2018-07-15 19:02] LABS: ADD MANUAL DIFFER YES; DIFF SLIDE NUMBER 383; POSITIVE DIFF POS FLAG
[2018-07-15 19:38] LABS: ATYPICAL LYMPH 6 % (0-5); LYMPHOCYTES 30 % (16-52); MONOCYTES 6 % (0-8); NEUTROPHILS 58 % (35-75); PLATELET ESTIMATE NORMAL (NORMAL)
== END ==
LOC: M LAB REF 17:34
DX: D72.820 Lymphocytosis (symptomatic) (principal); R61 Generalized hyperhidrosis
CPT/HCPCS: 85025

== ENCOUNTER → 2018-07-31 | Outpatient (CLI) | payer MEDICARE, OTHER ==
[~2018-07-31] MED LIST changes: -ALBU17IN INH; -AMOX500C PO; -CLAR250T PO; -DIPH50CA PO; -FLUT22IN INH; -GABA600T PO; -LAMO200T PO; -LIDO1OIN2 TOP; -LYRI200C PO; -NEUR300C PO; -NICO21PAT TD; -PANT40TA2 PO; +PROHANCE 279.3MG/ML 5ML VIAL (A9576) As Ordered; -PROZ20CA11 PO; -QUET5TAB PO; -SERO50TA PO; -VITMTA PO
== END ==
LOC: M RAD 08:49
DX: M50.220 Other cervical disc displacement, mid-cervical region, unspecified level (principal)
CPT/HCPCS: A9576

== ENCOUNTER 2019-01-08 23:59 | Emergency (ER) | payer MEDICARE, OTHER ==
[~2019-01-08] VITALS: Ht 175.3 cm; Wt 74.1 kg
[2019-01-08 23:59] VITALS: BP 152/98
[~2019-01-08 23:59] MED LIST changes: +ALBU17IN INH; +AMOX500C PO; +CLAR250T PO; +DIPH50CA PO; +FLUT22IN INH; +GABA600T4 PO; +LAMO200T2 PO; +LIDO1OIN2 TOP; +LYRI200C PO; +NEUR300C PO; +NICO21PAT TD; +PANT40TA3 PO; -PROHANCE 279.3MG/ML 5ML VIAL (A9576) As Ordered; +PROZ20CA11 PO; +QUET5TAB PO; +SERO50TA PO; +VITMTA PO
[2019-01-09] MEDS ORDERED: SUBO8MIS SL (00:04)
[2019-01-09] MEDS ORDERED: CLON-412 PO (00:05)
[2019-01-09] MEDS ORDERED: ARNU1INH PO (00:06)
[2019-01-09] MEDS ORDERED: ONDANSETRON 4MG/2ML VIAL (J2405) IV ONE (01:15)
[2019-01-09] MEDS ORDERED: NS 1,000 ML IV ONE (01:15)
[2019-01-09 01:54] LABS: HEMATOCRIT 42.7 % (36.0-47.0); HEMOGLOBIN 14.8 g/dl (12.0-15.5); MEAN CORPUSCULAR HEMOGLOBIN 29.9 pg (27.0-33.0); MEAN CORPUSCULAR HGB CONC 34.7 g/dl (32.0-36.5); MEAN CORPUSCULAR VOLUME 86.3 fl (80.0-96.0); PLATELET COUNT, AUTOMATED 241 10^3/uL (150-450); RED BLOOD COUNT 4.95 10^6/uL (4.00-5.40)
[2019-01-09 01:58] LABS: WHITE BLOOD COUNT 12.3 10^3/uL (4.0-10.0)
[2019-01-09 02:08] LABS: ATYPICAL LYMPH 5 % (0-5); EOSINOPHILS 1 % (0-5); LYMPHOCYTES 33 % (16-52); MONOCYTES 4 % (0-8); NEUTROPHILS 55 % (35-75); PLATELET ESTIMATE NORMAL (NORMAL)
[2019-01-09 02:14] LABS: HCG, SERUM QUALITATIVE NEGATIVE (NEGATIVE)
[2019-01-09 02:23] LABS: ALT/SGPT 16 U/L (12-78); BILIRUBIN,DIRECT < 0.1 MG/DL (0.0-0.2); BILIRUBIN,TOTAL 0.5 MG/DL (0.2-1.0); BLOOD UREA NITROGEN 6 MG/DL (7-18); CALCIUM LEVEL 8.8 MG/DL (8.5-10.1); CARBON DIOXIDE LEVEL 22 MEQ/L (21-32); CHLORIDE LEVEL 107 MEQ/L (98-107); CREATININE FOR GFR 0.74 MG/DL (0.55-1.30); GLOMERULAR FILTRATION RATE > 60.0 (>58); GLUCOSE, FASTING 86 MG/DL (70-100); LIPASE 119 U/L (73-393); POTASSIUM SERUM 4.3 MEQ/L (3.5-5.1); SODIUM LEVEL 139 MEQ/L (136-145); TOTAL PROTEIN 8.2 GM/DL (6.4-8.2)
[2019-01-09] MEDS ORDERED: ONDA4TAB6 PO (02:53)
== END 2019-01-09 03:37 | disposition home or self-care (01) ==
LOC: M ED 23:59
DX: R10.9 Unspecified abdominal pain (principal); K27.9 Peptic ulcer, site unspecified, unspecified as acute or chronic, without hemorrhage or perforation; Z87.19 Personal history of other diseases of the digestive system; Z72.0 Tobacco use; Z79.899 Other long term (current) drug therapy
CPT/HCPCS: 80048; 80076; 83690; 84703; 85025; 96361; 96374; 99283; J2405

== ENCOUNTER → 2019-01-10 | Outpatient (REF) | payer OTHER ==
[~2019-01-10] MED LIST changes: +ARNU1INH PO; +CLON-412 PO; +ONDA4TAB6 PO; +SUBO8MIS SL
== END ==
LOC: M LAB REF 13:30
PROVIDERS: ATTEND Emergency Medicine
DX: K52.9 Noninfective gastroenteritis and colitis, unspecified (principal)

== ENCOUNTER 2019-03-10 17:59 | Emergency (ER) | payer OTHER ==
[~2019-03-10] VITALS: Ht 172.7 cm; Wt 67.7 kg
[2019-03-10] MEDS ORDERED: LAMO100T (18:11)
[2019-03-10] MEDS ORDERED: OMEP-218 PO (18:44)
[2019-03-10] MEDS ORDERED: methylPREDNISolone INJ 125 MG/2 ML VIAL (J2930) IV ONE (19:00)
[2019-03-10] MEDS ORDERED: AZITHROMYCIN 250 MG TAB PO ONE (19:00)
[2019-03-10] MEDS: IPRATROPIUM 0.5MG/ALBUTEROL 2.5MG INH SOL UD 3ML (DUONEB)(J7620) NEB PRN ×3 (19:06→19:53)
[2019-03-10 19:09] LABS: BASO # 0.1 10^3/uL (0.0-0.2); BASO % 0.4 % (0.0-1.0); EOS # 0.2 10^3/uL (0.0-0.50); EOS % 1.2 % (0.0-3.0); HEMATOCRIT 41.7 % (36.0-47.0); HEMOGLOBIN 13.9 g/dl (12.0-15.5); LYMPH # 3.5 10^3/uL (1.5-4.5); LYMPH % 24.1 % (24.0-44.0); MEAN CORPUSCULAR HEMOGLOBIN 30.3 pg (27.0-33.0); MEAN CORPUSCULAR HGB CONC 33.3 g/dl (32.0-36.5); MEAN CORPUSCULAR VOLUME 90.8 fl (80.0-96.0); MONO # 0.9 10^3/uL (0.0-0.8); MONO % 6.3 % (0.0-5.0); NEUTROPHILS # 9.8 10^3/uL (1.8-7.7); NEUTROPHILS % 67.6 % (36.0-66.0); PLATELET COUNT, AUTOMATED 263 10^3/uL (150-450); RED BLOOD COUNT 4.59 10^6/uL (4.00-5.40); WHITE BLOOD COUNT 14.6 10^3/uL (4.0-10.0)
[2019-03-10 19:19] LABS: BLOOD UREA NITROGEN 4 MG/DL (7-18); CALCIUM LEVEL 8.4 MG/DL (8.5-10.1); CARBON DIOXIDE LEVEL 22 MEQ/L (21-32); CHLORIDE LEVEL 110 MEQ/L (98-107); CPK CREATINE PHOSPHOKINASE 84 U/L (26-192); CREATININE FOR GFR 0.67 MG/DL (0.55-1.30); GLOMERULAR FILTRATION RATE > 60.0 (>58); GLUCOSE, FASTING 91 MG/DL (70-100); MB/CK RELATIVE INDEX 1.55 (< OR =4); POTASSIUM SERUM 3.5 MEQ/L (3.5-5.1); SODIUM LEVEL 138 MEQ/L (136-145); TROPONIN I < 0.02 NG/ML (< 0.10)
[2019-03-10 19:23] LABS: HCG, SERUM QUALITATIVE NEGATIVE (NEGATIVE)
--- NOTE | 2019-03-10 20:11 | REP ---
HISTORY: Dyspnea and cough. COMPARISON: 01/19/2013, a two-view examination. The technique utilized in obtaining the radiograph has magnified the cardiac silhouette and accentuated the interstitial markings. The interstitial markings are mildly, but diffusely increased. There are no patchy opacities or pleural effusions. The osseous structures are normal. The heart is not enlarged. IMPRESSION: Mildly increased interstitial markings, edema versus asthma. Correlate clinically. Electronically Signed by Carlos Alberto Nettles DO 03/11/2019 01:33 P
[2019-03-10] MEDS ORDERED: ISOVUE-370 76% 100ML VIAL (Q9967) As Ordered ONE ×2 (20:18→20:48)
--- NOTE | 2019-03-10 21:31 | REPVR ---
EXAM: US Duplex Bilateral Lower Extremity Veins EXAM DATE/TIME: 03/10/2019 9:15 PM CLINICAL HISTORY: 43 years old, female; Pain; Leg, upper and leg, lower; Bilateral; Additional info: Leg pain swelling with elevated d dimer TECHNIQUE: Imaging protocol: Real-time duplex ultrasound of the Bilateral Lower Extremities with 2-D alexander scale, color Doppler flow and spectral waveform analysis. Complete exam focused on the bilateral lower extremity veins. COMPARISON: No relevant prior studies available. FINDINGS: Right deep veins: Unremarkable. The common femoral, femoral, proximal profunda femoral and popliteal veins are patent without thrombus. Normal Doppler waveforms. Normal compressibility and/or augmentation response. Left deep veins: Unremarkable. The common femoral, femoral, proximal profunda femoral and popliteal veins are patent without thrombus. Normal Doppler waveforms. Normal compressibility and/or augmentation response. IMPRESSION: No evidence of deep vein thrombosis. Electronically signed by: Antoni Patrick On 03/10/2019 21:30:37 PM
--- NOTE | 2019-03-10 22:50 | REPVR ---
EXAM: CT Angiography Chest With Contrast EXAM DATE/TIME: 03/10/2019 10:41 PM CLINICAL HISTORY: 43 years old, female; Chest pain; Additional info: Chest pain elevated d dimer TECHNIQUE: Imaging protocol: Axial computed tomographic angiography images of the chest with intravenous contrast using CT angiography protocol. Coronal and sagittal reformatted images were created and reviewed. 3D rendering: MIP reconstructed images were created and reviewed. Radiation optimization: All CT scans at this facility use at least one of these dose optimization techniques: automated exposure control; mA and/or kV adjustment per patient size (includes targeted exams where dose is matched to clinical indication); or iterative reconstruction. Contrast material: ISOVUE 370; Contrast volume: 75 ml; Contrast route: IV; COMPARISON: CR PORTABLE CHEST X-RAY 03/10/2019 7:29 PM FINDINGS: Pulmonary arteries: Normal. No pulmonary emboli. Aorta: Normal. No aortic aneurysm. No aortic dissection. Lungs: Normal. No consolidation. No masses. Pleural space: Normal. No pneumothorax. No pleural effusion. Heart: Normal. No cardiomegaly. No pericardial effusion. Lymph nodes: Unremarkable. No enlarged lymph nodes. Bones/joints: Unremarkable. No acute fracture. Soft tissues: Unremarkable. IMPRESSION: No acute findings. Electronically signed by: Antoni Patrick On 03/10/2019 22:50:34 PM
[2019-03-10] MEDS ORDERED: ONDANSETRON 4 MG ORAL DISINTEGRATING TAB (Q0162 PER 1MG) PO ONE (23:00)
[2019-03-10] MEDS ORDERED: ZITH500T PO (23:02)
[2019-03-10] MEDS ORDERED: MEDR4PAK PO (23:02)
[2019-03-11 00:03] VITALS: BP 138/72
--- NOTE | 2019-03-12 06:56 | ECGEPIP ---
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
== END 2019-03-11 00:06 | disposition home or self-care (01) ==
LOC: M ED 17:59
DX: J45.998 Other asthma (principal); M79.604 Pain in right leg; M79.605 Pain in left leg; R79.89 Other specified abnormal findings of blood chemistry; Z79.899 Other long term (current) drug therapy; Z79.891 Long term (current) use of opiate analgesic; F17.210 Nicotine dependence, cigarettes, uncomplicated
CPT/HCPCS: 36415; 71045; 71275; 80048; 82550; 82553; 84703; 85025; 85379; 93005; 93041; 93970; 94640; 94760; 96374; 99284; J2930; Q0162; Q9967

== ENCOUNTER → 2019-06-16 | Outpatient (REF) | payer OTHER, MEDICAID ==
[~2019-06-16] MED LIST changes: -CLAR250T PO; +CLAR250T22 PO; +LAMO100T; +MEDR4PAK PO; +OMEP-218 PO; +ZITH500T PO
[2019-06-16 18:04] LABS: BASO # 0.1 10^3/uL (0.0-0.2); BASO % 0.7 % (0.0-1.0); EOS # 0.1 10^3/uL (0.0-0.50); EOS % 1.1 % (0.0-3.0); HEMATOCRIT 40.2 % (36.0-47.0); HEMOGLOBIN 13.5 g/dl (12.0-15.5); LYMPH # 3.6 10^3/uL (1.5-4.5); LYMPH % 42.3 % (24.0-44.0); MEAN CORPUSCULAR HEMOGLOBIN 30.3 pg (27.0-33.0); MEAN CORPUSCULAR HGB CONC 33.6 g/dl (32.0-36.5); MEAN CORPUSCULAR VOLUME 90.3 fl (80.0-96.0); MONO # 0.7 10^3/uL (0.0-0.8); MONO % 8.5 % (0.0-5.0); NEUTROPHILS % 47.2 % (36.0-66.0); PLATELET COUNT, AUTOMATED 262 10^3/uL (150-450); RED BLOOD COUNT 4.45 10^6/uL (4.00-5.40); WHITE BLOOD COUNT 8.4 10^3/uL (4.0-10.0)
[2019-06-16 18:04] LABS: OSMOLALITY URINE 64 MOSM/KG (500-800)
[2019-06-16 18:12] LABS: ALBUMIN 3.8 GM/DL (3.2-5.2); ALT/SGPT 19 U/L (12-78); BILIRUBIN,TOTAL 0.2 MG/DL (0.2-1.0); BLOOD UREA NITROGEN 5 MG/DL (7-18); CALCIUM LEVEL 9.1 MG/DL (8.5-10.1); CARBON DIOXIDE LEVEL 23 MEQ/L (21-32); CHLORIDE LEVEL 106 MEQ/L (98-107); CREATININE FOR GFR 0.75 MG/DL (0.55-1.30); GLOMERULAR FILTRATION RATE > 60.0 (>58); GLUCOSE, FASTING 87 MG/DL (70-100); POTASSIUM SERUM 4.2 MEQ/L (3.5-5.1); SODIUM LEVEL 137 MEQ/L (136-145); TOTAL PROTEIN 7.5 GM/DL (6.4-8.2)
[2019-06-16 18:33] LABS: CHLORIDE,RANDOM URINE 15 MEQ/L; CREATININE,RANDOM URINE < 13.0 MG/DL; POTASSIUM RANDOM URINE 8.3 MEQ/L; SODIUM,RANDOM URINE 17 MEQ/L
== END ==
LOC: M LAB REF 16:44
PROVIDERS: ATTEND Nurse Practitioner Adult Health
DX: R82.998 Other abnormal findings in urine (principal)

== ENCOUNTER 2019-07-12 11:16 | Day surgery (SDC) | payer OTHER ==
[~2019-07-12] VITALS: Ht 172.7 cm; Wt 59.5 kg
[~2019-07-12 11:16] MED LIST changes: +NS 1,000 ML IV ONE; +ONDA-195 PO; +QVAR80AE8 INH; +VENTAER INH
[2019-07-12] MEDS ORDERED: PROPOFOL 200 MG/20 ML VIAL As Ordered ONE (11:39)
[2019-07-12] MEDS ORDERED: LIDOCAINE 2% INJ 100 MG/5 ML SDV (FOR ANES.) As Ordered ONE (11:39)
--- NOTE | 2019-07-12 13:29 | ROOR ---
Patient Name: Adia Kearney Procedure Date: 07/12/2019 1:10 PM Date of : 1975 Age: 44 Room: [facility] Gender: Female Note Status: Finalized Procedure: Upper Endoscopy + Biopsies Indications: Heartburn, Exclusion of peptic ulcer, Nausea Providers: Garett Dillard MD Referring MD: Joshua COTO MD Requesting Provider: Medicines: Monitored Anesthesia Care Complications: No immediate complications. Procedure: Pre-Anesthesia Assessment: - The heart rate, respiratory rate, oxygen saturations, blood pressure, adequacy of pulmonary ventilation, and response to care were monitored throughout the procedure. The Endoscope was introduced through the mouth, and advanced to the second part of duodenum. The upper GI endoscopy was accomplished without difficulty. The patient tolerated the procedure well. Findings: The Z-line was regular and was found 40 cm from the incisors. No other significant abnormalities were identified in a careful examination of the stomach. Biopsies were taken with a cold forceps in the gastric antrum for Helicobacter pylori testing. The exam of the duodenum was otherwise normal. Impression: - Z-line regular, 40 cm from the incisors. - Biopsies were taken with a cold forceps for Helicobacter pylori testing. - The examination was otherwise normal. Recommendation: - Patient has a contact number available for emergencies. The signs and symptoms of potential delayed complications were discussed with the patient. Return to normal activities tomorrow. Written discharge instructions were provided to the patient. - High fiber diet. - Discharge patient to home. - Follow an antireflux regimen. - Continue present medications. - Await pathology results. - Telephone GI clinic for pathology results in 1 week. - Return to referring physician. - The findings and recommendations were discussed with the patient's family. Garett Dillard MD Garett Dillard MD 07/12/2019 1:28:53 PM Electronically signed by Garett Dillard MD Number of Addenda: 0 Note Initiated On: 07/12/2019 1:10 PM Estimated Blood Loss: Estimated blood loss: none.
[2019-07-12 13:54] VITALS: BP 114/74
== END 2019-07-12 13:57 | disposition home or self-care (01) ==
LOC: M OPP 11:16
PROVIDERS: ATTEND Internal Medicine Gastroenterology
DX: R11.0 Nausea (principal); R12 Heartburn; Z87.11 Personal history of peptic ulcer disease; Z79.899 Other long term (current) drug therapy; F17.210 Nicotine dependence, cigarettes, uncomplicated

== ENCOUNTER → 2019-08-26 | Outpatient (CLI) | payer OTHER ==
[~2019-08-26] MED LIST changes: -NS 1,000 ML IV ONE
--- NOTE | 2019-08-26 07:36 | PFTRPT ---
Height: 68.00 Inches Weight: 128.00 Lbs BSA: 1.69 Diagnosis: R06.00 DATE OF PROCEDURE: 08/26/2019 ORDERED BY: Indio Solano PA-C Spirometry: Pre and post bronchodilator study of excellent technical quality. Forced vital capacity normal. FEV1 in proportion. Obstructive index is, therefore, normal. Flow Volume Loop: Expiratory limb of the flow volume loop is normal. No significant bronchodilator response identified. Lung Volumes: Total lung capacity normal. Residual volume borderline for air trapping. Diffusing Capacity: Diffusing capacity, although mildly reduced, is appropriate for alveolar volume. Hemoglobin: Hemoglobin acceptable at 15.3. Airway Mechanics: Airway resistance and conductance are normal. IMPRESSION: Cannot rule out air trapping. Mild reduction in the absolute diffusing capacity requires clinical correlation. MTDD
== END ==
LOC: M CARPUL 06:56
PROVIDERS: ATTEND Physician Assistant
DX: R06.00 Dyspnea, unspecified (principal)

== ENCOUNTER → 2019-08-26 | Outpatient (REF) | payer OTHER ==
[2019-08-26 18:20] LABS: SODIUM,RANDOM URINE 25 MEQ/L
[2019-08-26 18:34] LABS: OSMOLALITY URINE 91 MOSM/KG (500-800)
== END ==
LOC: M LAB REF 17:22
PROVIDERS: ATTEND Internal Medicine Nephrology
DX: R82.998 Other abnormal findings in urine (principal)

== ENCOUNTER → 2019-09-08 | Outpatient (CLI) | payer OTHER, SELFPAY ==
[~2019-09-08] MED LIST changes: +METHACHOLINE KIT (J7674) INH ONE
--- NOTE | 2019-09-08 16:37 | PFTRPT ---
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 Review Status: Not Reviewed Pre-Bronch Post-Bronch Pred Actual %Pred Actual %Chng SPIROMETRY FVC (L) 4.17 4.02 96 3.72 -7 FEV1 (L) 3.36 3.07 91 2.97 -3 FEV1/FVC (%) 82 76 93 80 4 FEF 25% (L/sec) 5.82 6.23 107 5.23 -16 FEF 50% (L/sec) 4.14 3.45 83 3.60 4 FEF 75% (L/sec) 1.61 1.06 65 0.70 -34 FEF 25-75% (L/sec) 3.28 2.55 77 2.25 -11 FEF Max (L/sec) 7.57 6.72 88 5.83 -13 FIVC (L) 3.97 3.65 -7 FIF 50% (L/sec) 3.74 5.88 157 4.16 -29 FIF Max (L/sec) 6.06 4.41 -27 Expiratory Time (sec) 7.25 6.89 -4 Back Extrap Vol (L) 0.11 0.08 -25 Time To FEFmax (sec) 0.096 0.095
== END ==
LOC: M CARPUL 15:40
PROVIDERS: ATTEND Physician Assistant
DX: R06.00 Dyspnea, unspecified (principal)
CPT/HCPCS: 94070; J7674

== ENCOUNTER 2020-03-18 21:51 | Emergency (ER) | payer OTHER, SELFPAY ==
[~2020-03-18] VITALS: Ht 167.6 cm; Wt 60.9 kg
[~2020-03-18 21:51] MED LIST changes: -LAMO100T; +LAMO100T3; -LAMO200T2 PO; +LAMO200T3 PO; -METHACHOLINE KIT (J7674) INH ONE
[2020-03-18 22:51] LABS: HEMATOCRIT 42.4 % (36.0-47.0); HEMOGLOBIN 14.5 g/dl (12.0-15.5); MEAN CORPUSCULAR HEMOGLOBIN 30.5 pg (27.0-33.0); MEAN CORPUSCULAR HGB CONC 34.2 g/dl (32.0-36.5); MEAN CORPUSCULAR VOLUME 89.3 fl (80.0-96.0); PLATELET COUNT, AUTOMATED 226 10^3/uL (150-450); RED BLOOD COUNT 4.75 10^6/uL (4.00-5.40); WHITE BLOOD COUNT 8.8 10^3/uL (4.0-10.0)
[2020-03-18 23:09] LABS: HCG, SERUM QUALITATIVE NEGATIVE (NEGATIVE)
[2020-03-18 23:22] LABS: ACETAMINOPHEN LEVEL < 2.0 UG/ML (10.0-30.0); ALT/SGPT 22 U/L (12-78); BILIRUBIN,DIRECT < 0.1 MG/DL (0.0-0.2); BILIRUBIN,TOTAL 0.4 MG/DL (0.2-1.0); BLOOD UREA NITROGEN 13 MG/DL (7-18); CALCIUM LEVEL 8.9 MG/DL (8.5-10.1); CARBON DIOXIDE LEVEL 25 MEQ/L (21-32); CHLORIDE LEVEL 109 MEQ/L (98-107); CREATININE FOR GFR 0.69 MG/DL (0.55-1.30); ETHYL ALCOHOL (ETHANOL) < 0.003 % (0.000-0.010); GLOMERULAR FILTRATION RATE > 60.0 (>58); GLUCOSE, FASTING 107 MG/DL (70-100); POTASSIUM SERUM 3.6 MEQ/L (3.5-5.1); SALICYLATE LEVEL 5.2 MG/DL (5.0-30.0); SODIUM LEVEL 141 MEQ/L (136-145); TOTAL PROTEIN 8.2 GM/DL (6.4-8.2)
[2020-03-19 00:11] LABS: AMPHETAMINES LEVEL URINE NEGATIVE (NEGATIVE); BARBITURATES URINE NEGATIVE (NEGATIVE); BENZODIAZEPINES URINE NEGATIVE (NEGATIVE); CANNABINOIDS URINE POSITIVE (NEGATIVE); COCAINE METABOLITE URINE NEGATIVE (NEGATIVE); METHADONE URINE NEGATIVE (NEGATIVE); OPIATES URINE POSITIVE (NEGATIVE); PHENCYCLIDINE URINE NEGATIVE (NEGATIVE)
[2020-03-19] MEDS ORDERED: HALOPERIDOL 5MG/ML VIAL (J1630 PER 1) IM STA (02:51)
[2020-03-19] MEDS ORDERED: diphenhydrAMINE 50MG/ML VIAL (J1200) IM ONE (03:00)
[2020-03-19] MEDS ORDERED: cloNIDine 0.1 MG TAB PO ONE (09:00)
[2020-03-19] MEDS ORDERED: BUPRENORPHINE/NALOXONE 8-2MG SUBLINGUAL TABLET(SUBOXONE) SL SCH (09:00)
[2020-03-19 10:37] VITALS: BP 138/82
[2020-03-19] MEDS ORDERED: LORazepam 1 MG TAB PO STA (16:56)
[2020-03-19 17:19] VITALS: BP 124/70
--- NOTE | 2020-03-19 21:04 | ECGEPIP ---
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
== END 2020-03-19 17:27 ==
LOC: M ED 21:51 → EDBD 21:51 → M ED 03-19 17:27
DX: F31.9 Bipolar disorder, unspecified (principal); B02.9 Zoster without complications; B19.20 Unspecified viral hepatitis C without hepatic coma; Z79.899 Other long term (current) drug therapy; Z79.891 Long term (current) use of opiate analgesic
CPT/HCPCS: 36415; 80048; 80076; 80307; 84443; 84703; 85027; 93005; 96372; 99285; G0480; J1200; J1630

== ENCOUNTER 2020-08-07 15:13 | Emergency (ER) | payer OTHER ==
[~2020-08-07] VITALS: Ht 172.7 cm; Wt 58.3 kg
[~2020-08-07 15:13] MED LIST changes: +PANT40TA29 PO; -PANT40TA3 PO
[2020-08-07 18:06] LABS: BASO # 0.1 10^3/uL (0.0-0.2); BASO % 0.5 % (0.0-1.0); EOS # 0.2 10^3/uL (0.0-0.5); HEMATOCRIT 44.9 % (36.0-47.0); HEMOGLOBIN 15.5 g/dl (12.0-15.5); LYMPH # 2.1 10^3/uL (1.5-5.0); LYMPH % 14.4 % (24.0-44.0); MEAN CORPUSCULAR HEMOGLOBIN 30.6 pg (27.0-33.0); MEAN CORPUSCULAR HGB CONC 34.5 g/dl (32.0-36.5); MEAN CORPUSCULAR VOLUME 88.6 fl (80.0-96.0); MONO # 1.1 10^3/uL (0.0-0.8); MONO % 7.7 % (0.0-5.0); NEUTROPHILS # 11.2 10^3/uL (1.5-8.5); NEUTROPHILS % 75.9 % (36.0-66.0); PLATELET COUNT, AUTOMATED 258 10^3/uL (150-450); RED BLOOD COUNT 5.07 10^6/uL (4.00-5.40); WHITE BLOOD COUNT 14.8 10^3/uL (4.0-10.0)
[2020-08-07] MEDS ORDERED: ISOVUE-370 76% 100ML VIAL As Ordered ONE (18:12)
[2020-08-07 18:29] LABS: AMPHETAMINES LEVEL URINE POSITIVE (NEGATIVE); BARBITURATES URINE NEGATIVE (NEGATIVE); BENZODIAZEPINES URINE NEGATIVE (NEGATIVE); CANNABINOIDS URINE POSITIVE (NEGATIVE); COCAINE METABOLITE URINE NEGATIVE (NEGATIVE); METHADONE URINE POSITIVE (NEGATIVE); OPIATES URINE NEGATIVE (NEGATIVE); PHENCYCLIDINE URINE NEGATIVE (NEGATIVE)
--- NOTE | 2020-08-07 18:47 | REPVR ---
PROCEDURE INFORMATION: Exam: CT Maxillofacial With Contrast Exam date and time: 08/07/2020 5:00 PM Age: 45 years old Clinical indication: Mass, lump, or swelling; Location not specified; Additional info: L mandibular swelling/pain, R/O abscess TECHNIQUE: Imaging protocol: Computed tomography images of the face with intravenous contrast. Radiation optimization: All CT scans at this facility use at least one of these dose optimization techniques: automated exposure control; mA and/or kV adjustment per patient size (includes targeted exams where dose is matched to clinical indication); or iterative reconstruction. Contrast material: ISOVUE 370; Contrast volume: 75 ml; Contrast route: INTRAVENOUS (IV); COMPARISON: No relevant prior studies available. FINDINGS: Orbits: Orbits are normal. Globes are unremarkable. Bones/joints: No acute fracture. Paranasal sinuses: Normal. No air-fluid levels. Soft tissues: There is soft tissue edema and fat stranding overlying the left mandible. No fluid collections/abscess. Skin thickening overlying the left mandible. IMPRESSION: Findings suggestive of cellulitis overlying the left mandible. No fluid collections/abscess. Electronically signed by: Dorian Rogers On 08/07/2020 18:47:09 PM
[2020-08-07 18:56] VITALS: BP 158/84
[2020-08-07] MEDS ORDERED: KETOROLAC 30 MG/ML 1ML VIAL IV ONE (19:00)
[2020-08-07] MEDS ORDERED: dexameTHASONE 20MG/5ML VIAL (J1100 PER 1MG) IV ONE (19:00)
[2020-08-07] MEDS ORDERED: AMPICILLIN SOD/SULBACTAM SOD 3 GM in D5W MINI-BAG PLUS 100 ML IV ONE (19:00)
[2020-08-07] MEDS ORDERED: AUGM875T28 PO (20:58)
[2020-08-08] MEDS ORDERED: AMPICILLIN SOD/SULBACTAM SOD 3 GM in D5W MINI-BAG PLUS 100 ML IV ONE (01:00)
== END 2020-08-07 21:04 | disposition left against medical advice (07) ==
LOC: M ED 15:13
DX: Z53.20 Procedure and treatment not carried out because of patient's decision for unspecified reasons (principal); L03.211 Cellulitis of face; K02.9 Dental caries, unspecified; K08.89 Other specified disorders of teeth and supporting structures; F15.10 Other stimulant abuse, uncomplicated; F11.20 Opioid dependence, uncomplicated; F12.10 Cannabis abuse, uncomplicated; J45.909 Unspecified asthma, uncomplicated; B18.2 Chronic viral hepatitis C; F41.9 Anxiety disorder, unspecified; F32.9 Major depressive disorder, single episode, unspecified; Z79.51 Long term (current) use of inhaled steroids; Z79.899 Other long term (current) drug therapy
CPT/HCPCS: 70487; 80047; 80307; 84702; 85025; 87040; 96365; 96375; 99283; J1100; J1885; Q9967

== ENCOUNTER 2021-07-21 18:20 | Emergency (ER) | payer OTHER ==
[~2021-07-21] VITALS: Ht 172.7 cm; Wt 155.0 kg
[~2021-07-21 18:20] MED LIST changes: +AUGM875T28 PO; +QUET50TA4 PO; -QUET5TAB PO
[2021-07-21 18:21] VITALS: BP 152/95
== END 2021-07-21 20:17 | disposition left against medical advice (07) ==
LOC: M ED 18:20
DX: Z53.29 Procedure and treatment not carried out because of patient's decision for other reasons (principal)

== ENCOUNTER 2021-12-31 17:09 | Emergency (ER) | payer OTHER ==
[~2021-12-31] VITALS: Ht 175.3 cm; Wt 72.7 kg
[~2021-12-31 17:09] MED LIST changes: +OMEP-173 PO; -OMEP-218 PO
[2021-12-31 20:00] VITALS: BP 159/89
== END 2021-12-31 20:27 | disposition home or self-care (01) ==
LOC: M ED 17:09
DX: F41.8 Other specified anxiety disorders (principal); I10 Essential (primary) hypertension; F33.9 Major depressive disorder, recurrent, unspecified; B19.20 Unspecified viral hepatitis C without hepatic coma; F15.10 Other stimulant abuse, uncomplicated; Z79.899 Other long term (current) drug therapy; Z79.891 Long term (current) use of opiate analgesic; F17.210 Nicotine dependence, cigarettes, uncomplicated

== ENCOUNTER → 2022-06-20 | Outpatient (CLI) | payer OTHER | LOC: M WHC 13:34 | PROVIDERS: ATTEND Nurse Practitioner Family | DX: R92.8 Other abnormal and inconclusive findings on diagnostic imaging of breast (principal) ==

== ENCOUNTER → 2023-02-26 | Outpatient (REF) | payer OTHER ==
[2023-02-26 17:40] LABS: BASO # 0.1 10^3/uL (0.0-0.2); BASO % 0.7 % (0.0-1.0); EOS # 0.2 10^3/uL (0.0-0.5); EOS % 1.6 % (0.0-3.0); HEMATOCRIT 44.6 % (36.0-47.0); HEMOGLOBIN 14.8 g/dl (12.0-15.5); LYMPH # 2.3 10^3/uL (1.5-5.0); LYMPH % 24.9 % (24.0-44.0); MEAN CORPUSCULAR HGB CONC 33.2 g/dl (32.0-36.5); MEAN CORPUSCULAR VOLUME 90.3 fl (80.0-96.0); MONO # 0.8 10^3/uL (0.0-0.8); MONO % 8.3 % (2.0-8.0); NEUTROPHILS # 5.9 10^3/uL (1.5-8.5); NEUTROPHILS % 64.4 % (36.0-66.0); PLATELET COUNT, AUTOMATED 315 10^3/uL (150-450); RED BLOOD COUNT 4.94 10^6/uL (4.00-5.40); WHITE BLOOD COUNT 9.1 10^3/uL (4.0-10.0)
[2023-02-26 17:49] LABS: ALKALINE PHOSPHATASE 74 U/L (46-116); ALT/SGPT 18 U/L (7.0-40); AST/SGOT 16 U/L (<34); BILIRUBIN,TOTAL 0.4 MG/DL (0.3-1.2); BLOOD UREA NITROGEN 7 MG/DL (9-23); CALCIUM LEVEL 9.2 MG/DL (8.5-10.1); CARBON DIOXIDE LEVEL 23 MMOL/L (20-31); CHLORIDE LEVEL 105 MMOL/L (98-107); CHOLESTEROL LEVEL 171 MG/DL (<200); CHOLESTEROL RISK RATIO 3.98 (<5); CREATININE FOR GFR 0.68 MG/DL (0.55-1.30); GLOMERULAR FILTRATION RATE > 60.0 (>58); GLUCOSE, FASTING 96 MG/DL (60-100); HDL CHOLESTEROL 42.9 MG/DL (>40); LDL CHOLESTEROL 112.1 MG/DL (<100); NON-HDL-C 128.1 MG/DL; POTASSIUM SERUM 4.3 MMOL/L (3.5-5.1); SODIUM LEVEL 137 MMOL/L (136-145); THYROID STIMULATING HORMONE 1.403 uIU/ML (0.55-4.78); TOTAL PROTEIN 7.7 G/DL (5.7-8.2); TRIGLYCERIDES LEVEL 80 MG/DL (<150)
[2023-02-26 18:12] LABS: HEMOGLOBIN A1c 5.3 % (4.0-6.0)
== END ==
LOC: M LAB REF 16:19
PROVIDERS: ATTEND Nurse Practitioner Family
DX: Z13.228 Encounter for screening for other metabolic disorders (principal)

== ENCOUNTER → 2023-03-21 | Outpatient (REF) | payer OTHER ==
[2023-03-21 13:37] LABS: CHOLESTEROL RISK RATIO 3.95 (<5); HDL CHOLESTEROL 39.4 MG/DL (>40); LDL CHOLESTEROL 98.2 MG/DL (<100); MAGNESIUM LEVEL 1.8 MG/DL (1.8-2.4); NON-HDL-C 116.6 MG/DL
[2023-03-21 13:38] LABS: THYROID STIMULATING HORMONE 1.994 uIU/ML (0.55-4.78)
[2023-03-21 13:39] LABS: FREE T4 1.01 NG/DL (0.89-1.76)
== END ==
LOC: M LAB REF 12:16
PROVIDERS: ATTEND Nurse Practitioner Family
DX: Z13.228 Encounter for screening for other metabolic disorders (principal)

== ENCOUNTER → 2023-07-15 | Outpatient (CLI) | payer OTHER | LOC: M WHC 10:16 | PROVIDERS: ATTEND Nurse Practitioner Family | DX: R92.8 Other abnormal and inconclusive findings on diagnostic imaging of breast (principal); N61.22 Granulomatous mastitis, left breast ==

== ENCOUNTER → 2023-07-17 | Outpatient (REF) | payer OTHER ==
[2023-07-17 19:09] LABS: APPEARANCE, URINE CLEAR (CLEAR); BACTERIA, URINE AUTO NEGATIVE (NEGATIVE); BILIRUBIN, URINE AUTO NEGATIVE (NEGATIVE); BLOOD, URINE BLOOD NEGATIVE (NEGATIVE); COLOR, URINE YELLOW (YELLOW); GLUCOSE, URINE (UA) AUTO NEGATIVE (NEGATIVE); KETONE, URINE AUTO NEGATIVE (NEGATIVE); LEUKOCYTE ESTERASE, URINE AUTO NEGATIVE (NEGATIVE); MUCUS, URINE SMALL (NEGATIVE); NITRITE, URINE AUTO NEGATIVE (NEGATIVE); PROTEIN, URINE AUTO NEGATIVE (NEGATIVE); RBC, URINE AUTO 2 /HPF (0-3); SQUAMOUS EPITHELIAL CELL UR AU 1 /HPF (0-6); UROBILINOGEN, URINE AUTO 0.2 mg/dL (0.0-2.0); WBC, URINE AUTO 0 /HPF (0-3)
== END ==
LOC: M LAB REF 16:44
PROVIDERS: ATTEND Nurse Practitioner Family
DX: R39.9 Unspecified symptoms and signs involving the genitourinary system (principal)

== ENCOUNTER → 2023-07-22 | Outpatient (CLI) | payer OTHER ==
[2023-07-22 13:21] LABS: BASO # 0.1 10^3/uL (0.0-0.2); BASO % 0.6 % (0.0-1.0); EOS # 0.2 10^3/uL (0.0-0.5); EOS % 2.1 % (0.0-3.0); HEMATOCRIT 42.6 % (36.0-47.0); HEMOGLOBIN 14.1 g/dl (12.0-15.5); LYMPH # 2.3 10^3/uL (1.5-5.0); LYMPH % 28.2 % (24.0-44.0); MEAN CORPUSCULAR HEMOGLOBIN 29.9 pg (27.0-33.0); MEAN CORPUSCULAR HGB CONC 33.1 g/dl (32.0-36.5); MEAN CORPUSCULAR VOLUME 90.3 fl (80.0-96.0); MONO # 0.7 10^3/uL (0.0-0.8); MONO % 8.7 % (2.0-8.0); NEUTROPHILS # 4.9 10^3/uL (1.5-8.5); NEUTROPHILS % 60.2 % (36.0-66.0); PLATELET COUNT, AUTOMATED 253 10^3/uL (150-450); RED BLOOD COUNT 4.72 10^6/uL (4.00-5.40); WHITE BLOOD COUNT 8.1 10^3/uL (4.0-10.0)
[2023-07-22 13:45] LABS: ALBUMIN 3.9 G/DL (3.2-5.2); ALKALINE PHOSPHATASE 72 U/L (46-116); ALT/SGPT 17 U/L (7.0-40); AST/SGOT 15 U/L (<34); BILIRUBIN,TOTAL 0.4 MG/DL (0.3-1.2); BLOOD UREA NITROGEN 7 MG/DL (9-23); CALCIUM LEVEL 9.2 MG/DL (8.5-10.1); CARBON DIOXIDE LEVEL 25 MMOL/L (20-31); CHLORIDE LEVEL 108 MMOL/L (98-107); CREATININE FOR GFR 0.63 MG/DL (0.55-1.30); GLOMERULAR FILTRATION RATE > 60.0 (>58); GLUCOSE, FASTING 88 MG/DL (60-100); POTASSIUM SERUM 4.3 MMOL/L (3.5-5.1); SODIUM LEVEL 139 MMOL/L (136-145); TOTAL PROTEIN 7.3 G/DL (5.7-8.2)
== END ==
LOC: M RAD 11:36
PROVIDERS: ATTEND Nurse Practitioner Family
DX: M54.50 Low back pain, unspecified (principal)

== ENCOUNTER → 2023-09-11 | Outpatient (REF) | payer OTHER | LOC: M LAB REF 16:31 | PROVIDERS: ATTEND Nurse Practitioner Family | DX: J02.9 Acute pharyngitis, unspecified (principal) ==

== ENCOUNTER → 2023-09-29 | Outpatient (CLI) | payer OTHER | LOC: M RAD 08:41 | PROVIDERS: ATTEND Nurse Practitioner Family | DX: R10.9 Unspecified abdominal pain (principal) ==

== ENCOUNTER → 2023-10-10 | Outpatient (REF) | payer OTHER | LOC: M PLAIMG 14:53 | PROVIDERS: ATTEND Internal Medicine | DX: M47.816 Spondylosis without myelopathy or radiculopathy, lumbar region (principal); M50.922 Unspecified cervical disc disorder at C5-C6 level; M54.9 Dorsalgia, unspecified ==

== ENCOUNTER → 2023-12-04 | Outpatient (CLI) | payer OTHER | LOC: M PLAIMG 09:53 | PROVIDERS: ATTEND Nurse Practitioner Family | DX: R10.9 Unspecified abdominal pain (principal) ==

== ENCOUNTER → 2024-01-08 | Outpatient (CLI) | payer OTHER ==
[2024-01-08 16:58] LABS: HIV 1&2 SCREEN NEGATIVE (NEGATIVE)
[2024-01-08 17:22] LABS: HEPATITIS C VIRUS ABY INDEX > 11.00 INDEX (<0.8)
== END ==
LOC: M LAB 14:42
PROVIDERS: ATTEND Physician Assistant
DX: Z11.3 Encounter for screening for infections with a predominantly sexual mode of transmission (principal)

== ENCOUNTER → 2024-01-15 | Outpatient (CLI) | payer OTHER | LOC: M RAD 11:19 | PROVIDERS: ATTEND Physician Assistant | DX: D25.1 Intramural leiomyoma of uterus (principal); N83.202 Unspecified ovarian cyst, left side ==

== ENCOUNTER → 2024-02-18 | Outpatient (CLI) | payer OTHER | LOC: M WHC 13:44 | PROVIDERS: ATTEND Physician Assistant Medical | DX: N63.21 Unspecified lump in the left breast, upper outer quadrant (principal) ==

== ENCOUNTER → 2024-06-09 | Outpatient (REF) | payer OTHER ==
[~2024-06-09] MED LIST changes: +ONDA-282 PO; -ONDA4TAB6 PO
[2024-06-09 14:34] LABS: BASO % 0.7 % (0.0-1.0); EOS # 0.2 10^3/uL (0.0-0.5); EOS % 2.6 % (0.0-3.0); HEMATOCRIT 39.3 % (36.0-47.0); HEMOGLOBIN 13.1 g/dl (12.0-15.5); LYMPH # 2.2 10^3/uL (1.5-5.0); LYMPH % 38.8 % (24.0-44.0); MEAN CORPUSCULAR HGB CONC 33.3 g/dl (32.0-36.5); MEAN CORPUSCULAR VOLUME 89.9 fl (80.0-96.0); MONO # 0.5 10^3/uL (0.0-0.8); MONO % 8.9 % (2.0-8.0); NEUTROPHILS # 2.8 10^3/uL (1.5-8.5); NEUTROPHILS % 48.8 % (36.0-66.0); PLATELET COUNT, AUTOMATED 264 10^3/uL (150-450); RED BLOOD COUNT 4.37 10^6/uL (4.00-5.40); WHITE BLOOD COUNT 5.8 10^3/uL (4.0-10.0)
[2024-06-09 14:36] LABS: ALBUMIN 3.8 G/DL (3.2-5.2); ALKALINE PHOSPHATASE 57 U/L (46-116); ALT/SGPT 17 U/L (7.0-40); AST/SGOT 14 U/L (<34); BILIRUBIN,TOTAL 0.3 MG/DL (0.3-1.2); BLOOD UREA NITROGEN 10 MG/DL (9-23); CALCIUM LEVEL 8.8 MG/DL (8.5-10.1); CARBON DIOXIDE LEVEL 24 MMOL/L (20-31); CHLORIDE LEVEL 109 MMOL/L (98-107); CHOLESTEROL LEVEL 163 MG/DL (<200); CHOLESTEROL RISK RATIO 3.63 (<5); CREATININE FOR GFR 0.68 MG/DL (0.55-1.30); GLOMERULAR FILTRATION RATE > 60.0 (>58); GLUCOSE, FASTING 90 MG/DL (60-100); HDL CHOLESTEROL 44.8 MG/DL (>40); LDL CHOLESTEROL 101.8 MG/DL (<100); MAGNESIUM LEVEL 1.8 MG/DL (1.8-2.4); NON-HDL-C 118.2 MG/DL; POTASSIUM SERUM 4.2 MMOL/L (3.5-5.1); SODIUM LEVEL 137 MMOL/L (136-145); TRIGLYCERIDES LEVEL 82 MG/DL (<150)
[2024-06-09 14:38] LABS: TOTAL 25(OH) VITAMIN D 28.8 NG/ML (20.0-100.0)
[2024-06-09 14:39] LABS: THYROID STIMULATING HORMONE 2.463 uIU/ML (0.55-4.78)
[2024-06-09 15:08] LABS: HEMOGLOBIN A1c 5.2 % (4.0-6.0)
== END ==
LOC: M LAB REF 12:31
PROVIDERS: ATTEND Nurse Practitioner Family
DX: E66.3 Overweight (principal); E55.9 Vitamin D deficiency, unspecified

== ENCOUNTER → 2024-06-10 | Outpatient (CLI) | payer OTHER | LOC: M WHC 12:37 | PROVIDERS: ATTEND Physician Assistant | DX: R10.2 Pelvic and perineal pain (principal); D25.9 Leiomyoma of uterus, unspecified; N83.201 Unspecified ovarian cyst, right side; N85.9 Noninflammatory disorder of uterus, unspecified ==

== ENCOUNTER → 2024-06-23 | Outpatient (REF) | LOC: M LAB 15:16 | PROVIDERS: ATTEND Nurse Practitioner Adult Health | DX: Z02.89 Encounter for other administrative examinations (principal) ==

== ENCOUNTER 2025-06-15 10:31 | Emergency (ER) | payer OTHER ==
[~2025-06-15] VITALS: Ht 172.7 cm; Wt 75.3 kg
[~2025-06-15 10:31] MED LIST changes: +GABA-1490 PO; -GABA600T4 PO; -PROZ20CA11 PO; +PROZ20CA12 PO
[2025-06-15 13:30] LABS: BASO # 0.0 10^3/uL (0.0-0.2); BASO % 0.6 % (0.0-1.0); EOS # 0.2 10^3/uL (0.0-0.5); EOS % 2.4 % (0.0-3.0); LYMPH # 2.2 10^3/uL (1.5-5.0); LYMPH % 33.3 % (24.0-44.0); MONO # 0.7 10^3/uL (0.0-0.8); MONO % 9.8 % (2.0-8.0); NEUTROPHILS # 3.6 10^3/uL (1.5-8.5); NEUTROPHILS % 53.8 % (36.0-66.0); PLATELET COUNT, AUTOMATED 226 10^3/uL (150-450)
[2025-06-15 14:00] LABS: ALT/SGPT 18 U/L (7.0-40); AST/SGOT 19 U/L (<34); CALCIUM LEVEL 9.0 MG/DL (8.5-10.1); CARBON DIOXIDE LEVEL 26 MMOL/L (20-31); CHLORIDE LEVEL 107 MMOL/L (98-107); CREATININE FOR GFR 0.72 MG/DL (0.55-1.30); GLOMERULAR FILTRATION RATE > 90.0 (>58); POTASSIUM SERUM 4.1 MMOL/L (3.5-5.1); SODIUM LEVEL 142 MMOL/L (136-145)
[2025-06-15] MEDS: ONDANSETRON 4MG 2ML VIAL IV ONE (14:14)
[2025-06-15] MEDS: NS (Normal Saline) 0.9% 1,000 ML IV ONE (14:14)
[2025-06-15] MEDS: ACETAMINOPHEN *IV* 1,000 MG in IV 1 EA IV ONE (14:15)
[2025-06-15 17:45] VITALS: BP 111/71; TEMP 98; O2SAT 98
== END 2025-06-15 17:55 | disposition home or self-care (01) ==
LOC: M ED 10:31
DX: R10.11 Right upper quadrant pain (principal); F19.10 Other psychoactive substance abuse, uncomplicated; F41.9 Anxiety disorder, unspecified; Z86.19 Personal history of other infectious and parasitic diseases; J45.909 Unspecified asthma, uncomplicated; F17.290 Nicotine dependence, other tobacco product, uncomplicated; K80.20 Calculus of gallbladder without cholecystitis without obstruction; Z79.899 Other long term (current) drug therapy
CPT/HCPCS: 74176; 76705; 80048; 80076; 83690; 85025; 96365; 96366; 96375; 99284; J0131; J2405

== ENCOUNTER → 2025-08-08 | Outpatient (REF) ==
[~2025-08-08] MED LIST changes: -DIPH50CA PO; +DIPH50CA31 PO
[2025-08-08 15:16] LABS: SOFIA COVID ANTIGEN NEGATIVE (NEGATIVE)
== END ==
LOC: M EMP 14:51
PROVIDERS: ATTEND Family Medicine
DX: Z11.52 Encounter for screening for COVID-19 (principal)